=== PATIENT | female | born 1940 | race Caucasian/White ===

== ENCOUNTER → 2016-08-09 | Outpatient (REF) | payer MEDICARE ==
[~2016-08-09] MED LIST: /DULO30CA OR; ADVI200C5 PO; AMBI10TA OR; AMLO10TA2 PO; ASPI325T OR; ASPI81TA85 PO; BIOF4GEL2 TOP; BUME1TAB29 PO; BUSPIRONE OR; COUM2.5T11 PO; CYCL5TA PO; CYMB60CA3 PO; EQUATE OR; FLEXERIL OR; FLUR15CA2 OR; GABA300C3 PO; HYDR-3713 PO; HYDR50TA8 OR; HYDROCHLOROQUINE OR; JANU100T PO; LYRI100C10 PO; METAXALONE OR; METO50TA2 PO; OXYB5TAB5 OR; PANT40TA2 PO; PERC5TAB6 PO; TOLT1CAP4 PO; TRAD5TAB PO; TRAM50TA2 OR; TYLE325T5 PO
== END ==
LOC: M SFHCLERA 12:53
PROVIDERS: ATTEND Family Medicine
DX: E11.9 Type 2 diabetes mellitus without complications (principal)

== ENCOUNTER → 2016-08-11 | Outpatient (REF) | payer MEDICARE ==
[2016-08-11 20:06] LABS: FREE T4 1.15 NG/DL (0.76-1.46)
== END ==
LOC: M LAB REF 17:36
PROVIDERS: ATTEND Internal Medicine Nephrology
DX: R53.1 Weakness (principal)
CPT/HCPCS: 84425; 84439; 84443; G0463

== ENCOUNTER → 2016-09-02 | Outpatient (REF) | payer MEDICARE ==
[~2016-09-02] MED LIST changes: +GABA-282 PO; -GABA300C3 PO
[2016-09-02 22:17] LABS: BACTERIA, URINE NONE SEEN; HYALINE CAST, URINE NONE SEEN /lpf (0-1); MICROSCOPIC EXAM PERFORMED; RBC, URINE 0-1 /hpf (0-3); SQUAMOUS EPITHELIAL CELL URINE SMALL AMOUNT /hpf (SMALL AMT); WBC, URINE 0-1 /hpf (0-3)
== END ==
LOC: M SMT 16:59
PROVIDERS: ATTEND Specialist
DX: R35.0 Frequency of micturition (principal)
CPT/HCPCS: 51798; 81002; 87086; G0463

== ENCOUNTER → 2016-10-22 | Outpatient (REF) | payer MEDICARE | LOC: M SFHCLERA 11:16 | PROVIDERS: ATTEND Family Medicine | DX: E11.9 Type 2 diabetes mellitus without complications (principal); Z13.21 Encounter for screening for nutritional disorder ==

== ENCOUNTER → 2016-11-10 | Outpatient (REF) | payer MEDICARE | LOC: M LAB REF 17:00 | PROVIDERS: ATTEND Internal Medicine Nephrology | DX: D50.9 Iron deficiency anemia, unspecified (principal) ==

== ENCOUNTER 2016-11-17 08:40 | Outpatient (CLI) | payer MEDICARE ==
[2016-11-17] MEDS ORDERED: IRON SUCROSE 25 MG in NS 50 ML IV ONE (09:00)
[2016-11-17] MEDS ORDERED: IRON SUCROSE 475 MG in NS 250 ML IV ONE (09:00)
== END 2016-11-17 14:00 | disposition home or self-care (01) ==
LOC: M INFU 08:40
PROVIDERS: ATTEND Internal Medicine Nephrology
DX: D50.9 Iron deficiency anemia, unspecified (principal); Z88.2 Allergy status to sulfonamides; Z91.013 Allergy to seafood; Z79.899 Other long term (current) drug therapy
CPT/HCPCS: 96365; 96366; J1756

== ENCOUNTER → 2016-11-22 | Outpatient (REF) | payer MEDICARE | LOC: M SFHCLERA 13:07 | PROVIDERS: ATTEND Family Medicine | DX: E11.9 Type 2 diabetes mellitus without complications (principal) ==

== ENCOUNTER → 2017-02-13 | Outpatient (REF) | payer MEDICARE ==
[~2017-02-13] MED LIST changes: +ASPI1TAB PO; +BUPR75TA5 PO; +BYST10TA2 PO; -COUM2.5T11 PO; +COUM2.5T17 PO; -CYCL5TA PO; +CYCL5TAB PO; +DARI15TA PO; +LOSA100T36 PO; -LYRI100C10 PO; -METO50TA2 PO; +METO50TA7 PO; +PERC5TAB12 PO; -PERC5TAB6 PO; +PREG100CA PO
[2017-02-13 18:34] LABS: BASO % 0.5 % (0.0-1.0); EOS # 0.2 K/mm3 (0.0-0.50); EOS % 3.3 % (0.0-3.0); LARGE UNSTAINED CELL # 0.2 K/mm3 (0.0-0.4); LARGE UNSTAINED CELL % 3.4 % (0.0-4.0); LYMPH % 16.6 % (24.0-44.0); MEAN CORPUSCULAR HEMOGLOBIN 27.1 pg (27.0-33.0); MEAN CORPUSCULAR VOLUME 87.4 fl (80.0-96.0); MONO # 0.4 K/mm3 (0.0-0.8); MONO % 6.5 % (0.0-5.0); NEUTROPHILS # 4.1 K/mm3 (1.8-7.7); NEUTROPHILS % 69.7 % (36.0-66.0); PLATELET COUNT, AUTOMATED 239 k/mm3 (150-450); WHITE BLOOD COUNT 5.9 K/mm3 (4.0-10.0)
[2017-02-13 18:38] LABS: INR 0.97
[2017-02-13 20:33] LABS: ALBUMIN 3.7 GM/DL (3.2-5.2); ALBUMIN/GLOBULIN RATIO 1.12 (1.00-1.93); ALKALINE PHOSPHATASE 133 U/L (45-117); ALT/SGPT 34 U/L (12-78); ANION GAP 7 MEQ/L (8-16); AST/SGOT 28 U/L (15-37); BILIRUBIN,TOTAL 0.2 MG/DL (0.2-1.0); BLOOD UREA NITROGEN 21 MG/DL (7-18); CALCIUM LEVEL 9.2 MG/DL (8.8-10.2); CARBON DIOXIDE LEVEL 27 MEQ/L (21-32); CHLORIDE LEVEL 106 MEQ/L (98-107); CREATININE FOR GFR 0.93 MG/DL (0.55-1.02); GLOMERULAR FILTRATION RATE > 60.0 (>39); GLUCOSE, FASTING 130 MG/DL (83-110); POTASSIUM SERUM 4.3 MEQ/L (3.5-5.1); SODIUM LEVEL 140 MEQ/L (136-145); TOTAL IRON BINDING CAPACITY 438 UG/DL (250-450)
== END ==
LOC: M LAB REF 12:39
PROVIDERS: ATTEND Internal Medicine Gastroenterology
DX: D50.9 Iron deficiency anemia, unspecified (principal); Z79.899 Other long term (current) drug therapy

== ENCOUNTER → 2017-02-13 | Outpatient (REF) | payer MEDICARE ==
[2017-02-13 20:34] LABS: FOLATE > 24.0 NG/ML; VITAMIN B12 LEVEL > 2000 PG/ML
[2017-02-13 20:35] LABS: FERRITIN 18 NG/ML (8-252); PERCENT SATURATION 4.9 % (13.2-45.0); TOTAL IRON BINDING CAPACITY 428 UG/DL (250-450)
== END ==
LOC: M LAB REF 12:39
PROVIDERS: ATTEND Internal Medicine Nephrology
DX: D50.9 Iron deficiency anemia, unspecified (principal); Z79.899 Other long term (current) drug therapy

== ENCOUNTER 2017-02-28 10:59 | Outpatient (CLI) | payer MEDICARE ==
[~2017-02-28] VITALS: Ht 157.5 cm; Wt 106.4 kg
[~2017-02-28 10:59] MED LIST changes: -ASPI1TAB PO; -BUPR75TA5 PO; -BYST10TA2 PO; -DARI15TA PO; -LOSA100T36 PO
[2017-02-28] MEDS ORDERED: IRON SUCROSE 25 MG in NS 50 ML IV ONE (11:45)
[2017-02-28] MEDS ORDERED: IRON SUCROSE 475 MG in NS 250 ML IV ONE (12:45)
[2017-03-15] MEDS ORDERED: PREG100CA PO (17:26)
[2017-03-15] MEDS ORDERED: LOSA100T36 PO (17:26)
[2017-03-15] MEDS ORDERED: BYST10TA2 PO (17:26)
[2017-03-15] MEDS ORDERED: DARI15TA PO (17:26)
[2017-03-15] MEDS ORDERED: BUPR75TA5 PO (17:26)
[2017-03-15] MEDS ORDERED: TRAD5TAB PO (17:26)
[2017-03-15] MEDS ORDERED: ASPI1TAB PO (17:26)
== END 2017-02-28 16:25 | disposition home or self-care (01) ==
LOC: M INFU 10:59
PROVIDERS: ATTEND Internal Medicine Nephrology
DX: D50.9 Iron deficiency anemia, unspecified (principal); Z79.899 Other long term (current) drug therapy; Z91.013 Allergy to seafood; Z88.2 Allergy status to sulfonamides
CPT/HCPCS: 96365; 96366; J1756

== ENCOUNTER → 2017-03-13 | Outpatient (CLI) | payer MEDICARE ==
[~2017-03-13] MED LIST changes: +ASPI1TAB PO; +BUPR75TA5 PO; +BYST10TA2 PO; +DARI15TA PO; +LOSA100T36 PO
--- NOTE | 2017-03-13 11:08 | REP ---
Lumbar spine six views: Comparisons are 08/29/2068 03/11/2010. Surgical fusion of L4-5 is again identified. There is intervertebral disc space at L4-5. Para suspect there are bilateral L4-5 laminectomies. These findings are unchanged. There is advanced degenerative disc disease and L3-4 with this vacuum phenomenon, unchanged from 08/30/2015. There is mild grade 1 degenerative anterolisthesis of L3, also unchanged. There is progressive degenerative disc disease at L5 S1, unchanged. The remainder of the disc spaces are unchanged unremarkable. Vertebral body heights and alignment are otherwise normal. There is exaggerated lumbar lordosis. This is also unchanged. Mineralization is normal. The pedicles, facets and sacroiliac articulations are otherwise unchanged and unremarkable. Impression: L4-5 surgical fusion. Degenerative disc disease and degenerative spondylolisthesis as described. No significant interval changes. Signed by Tyron Hutton MD 03/13/2017 11:00 A
== END ==
LOC: M LRY 09:56
PROVIDERS: ATTEND Family Medicine
DX: M47.816 Spondylosis without myelopathy or radiculopathy, lumbar region (principal); M51.36 Other intervertebral disc degeneration, lumbar region

== ENCOUNTER 2017-03-28 07:04 | Outpatient (CLI) | payer MEDICARE ==
[~2017-03-28] VITALS: Ht 157.5 cm; Wt 103.4 kg
[2017-03-28] MEDS ORDERED: NS 1,000 ML IV ONE (07:15)
--- NOTE | 2017-03-28 08:21 | ROOR ---
Patient Name: Nikole Jose Procedure Date: 03/28/2017 8:03 AM Date of : 1940 Age: 76 Room: [facility] Gender: Female Note Status: Finalized Procedure: Upper GI endoscopy Indications: Iron deficiency anemia Providers: Kevin VALLE MD Referring MD: Jojo CARPENTER MD Requesting Provider: Medicines: Monitored Anesthesia Care Complications: No immediate complications. Procedure: Pre-Anesthesia Assessment: - The heart rate, respiratory rate, oxygen saturations, blood pressure, adequacy of pulmonary ventilation, and response to care were monitored throughout the procedure. The Endoscope was introduced through the mouth, and advanced to the second part of duodenum. The upper GI endoscopy was accomplished without difficulty. The patient tolerated the procedure well. Findings: The examined esophagus was normal. The Z-line was regular and was found 30 cm from the incisors. A large hiatal hernia with a few Fabrizio erosion was found. This was biopsied with a cold forceps for histology. The exam of the stomach was otherwise normal. The examined duodenum was normal. Impression: - Normal esophagus. - Z-line regular, 30 cm from the incisors. - Large hiatal hernia with a few Fabrizio erosions. Biopsied. - Normal examined duodenum. Recommendation: - No ibuprofen, naproxen, or other non-steroidal anti-inflammatory drugs. - Use Prilosec (omeprazole) 40 mg PO daily. - (the script was sent to your pharmacy on file) - Recommend an iron supplement. - Large Hiatal hernia may well be responsible for iron deficit. - If anemia persists with iron supplement, PPI therapy (omeprazole), and NSAID avoidance, then consideration should be given to surgical repair of hiatal hernia. Kevin Valle MD Kevin VALLE MD 03/28/2017 8:20:58 AM This report has been signed electronically. Number of Addenda: 0 Note Initiated On: 03/28/2017 8:03 AM Estimated Blood Loss: Estimated blood loss: none.
[2017-03-28] MEDS ORDERED: PROPOFOL 500 MG/50 ML VIAL As Ordered ONE ×2 (08:27→08:57)
[2017-03-28] MEDS ORDERED: LIDOCAINE 2% INJ 100 MG/5 ML SDV (FOR ANES.) As Ordered ONE (08:27)
--- NOTE | 2017-03-28 09:01 | ROOR ---
Patient Name: Nikole Jose Procedure Date: 03/28/2017 8:04 AM Date of : 1940 Age: 76 Room: [facility] Gender: Female Note Status: Finalized Procedure: Colonoscopy Indications: Iron deficiency anemia Providers: Kevin VALLE MD Referring MD: Jojo CARPENTER MD Requesting Provider: Medicines: Monitored Anesthesia Care Complications: No immediate complications. Procedure: Pre-Anesthesia Assessment: - The heart rate, respiratory rate, oxygen saturations, blood pressure, adequacy of pulmonary ventilation, and response to care were monitored throughout the procedure. The Colonoscope was introduced through the anus and advanced to the cecum, identified by appendiceal orifice and ileocecal valve. The colonoscopy was somewhat difficult due to dolichocolon and unsatisfactory bowel prep. Successful completion of the procedure was aided by applying abdominal pressure and lavage. The patient tolerated the procedure well. The quality of the bowel preparation was adequate to identify polyps 6 mm and larger in size and unsatisfactory. Findings: The perianal and digital rectal examinations were normal. (EXAM: Complete, PREP: Suboptimal) Multiple medium-mouthed diverticula were found in the sigmoid colon. Internal hemorrhoids were found during retroflexion. The hemorrhoids were medium-sized. The exam was otherwise without abnormality on direct and retroflexion views. Impression: - (EXAM: Complete, PREP: Suboptimal) - Moderate diverticulosis in the sigmoid colon. - Internal hemorrhoids. - The examination was otherwise normal on direct and retroflexion views. - No specimens collected. Recommendation: - Repeat colonoscopy in 1 year because the bowel preparation was suboptimal. - Perform a small bowel follow through at appointment to be scheduled. - Further rec--see EGD report - My office will call you to set up small bowel follow through exam. Kevin Valle MD Kevin VALLE MD 03/28/2017 9:01:02 AM This report has been signed electronically. Number of Addenda: 0 Note Initiated On: 03/28/2017 8:04 AM Estimated Blood Loss: Estimated blood loss: none.
[2017-03-28 13:21] VITALS: BP 104/60
== END 2017-03-28 09:35 | disposition home or self-care (01) ==
LOC: M OPP 07:04
PROVIDERS: ATTEND Internal Medicine Gastroenterology
DX: D50.9 Iron deficiency anemia, unspecified (principal); K57.30 Diverticulosis of large intestine without perforation or abscess without bleeding; K64.8 Other hemorrhoids; K44.9 Diaphragmatic hernia without obstruction or gangrene; K25.9 Gastric ulcer, unspecified as acute or chronic, without hemorrhage or perforation; I25.10 Atherosclerotic heart disease of native coronary artery without angina pectoris; I10 Essential (primary) hypertension; E11.9 Type 2 diabetes mellitus without complications; K59.00 Constipation, unspecified; R12 Heartburn; M19.90 Unspecified osteoarthritis, unspecified site; M81.0 Age-related osteoporosis without current pathological fracture; M54.9 Dorsalgia, unspecified; M79.7 Fibromyalgia; F32.9 Major depressive disorder, single episode, unspecified; R32 Unspecified urinary incontinence; Z96.653 Presence of artificial knee joint, bilateral; Z88.5 Allergy status to narcotic agent; Z88.2 Allergy status to sulfonamides; Z91.013 Allergy to seafood; Z79.82 Long term (current) use of aspirin; Z79.899 Other long term (current) drug therapy

== ENCOUNTER → 2017-04-10 | Outpatient (CLI) | payer MEDICARE ==
[~2017-04-10] MED LIST changes: +E-Z-GAS II EFFERVESCENT PACKET (SODIUM BICARB./CITRIC ACID/SIMETHICONE) As Ordered ONE; +E-Z-HD 98% w/w 340GM SUSP BTL As Ordered ONE; +E-Z-PAQUE 96% w/w SUSP 176GM BTL As Ordered ONE
--- NOTE | 2017-04-10 16:11 | REP ---
UPPER GI WITH SMALL BOWEL FOLLOW THROUGH: The procedure was performed by CASA Steen under the direct supervision of Dr. Blakely. All imaging was reviewed with Dr. Blakely prior to dictation. The patient was able to ingest liquid barium and air in a quantity sufficient to produce a double contrast examination. The oral and pharyngeal stages of deglutition appeared unremarkable. Esophageal transport was prompt and efficient. There was no evidence of esophagitis, stricture or mucosal ring. Tertiary contractions were noted on this examination. There is a moderate sized paraesophageal hernia. Gastroesophageal reflux was not observed. The stomach street are normally outlined. The rugal folds are smooth and regular. There was no evidence of gastritis, neoplasm or ulcerative disease. The duodenal street are normally outlined. There is no evidence of duodenitis, peptic ulcer disease or neoplasm. The visualized portion of the proximal small bowel was normal in course and caliber. Additional liquid barium was given at the end of the examination in order to perform a small bowel follow through. During fluoroscopy gentle palpation of the small bowel loops showed them to be freely movable and pliable without evidence of a fixed or angulated loop. The small bowel mucosal pattern was normal in course and caliber. There was no transition to suggest a partial small bowel obstruction. Spot filming of the terminal ileum was limited due to overlapping small bowel loops. IMPRESSION: Moderate size paraesophageal hernia. Tertiary contractions noted within the distal esophagus. Fluoroscopy time is 6 minutes and 19 seconds were utilized for this procedure. Reviewed by CASA Moore 04/10/2017 04:14 PEdited and Signed by Tyron Blakely MD 04/11/2017 07:29 P
== END ==
LOC: M RAD 08:45
PROVIDERS: ATTEND Internal Medicine Gastroenterology
DX: D50.9 Iron deficiency anemia, unspecified (principal); K44.9 Diaphragmatic hernia without obstruction or gangrene

== ENCOUNTER → 2017-05-08 | Outpatient (REF) | payer MEDICARE ==
[~2017-05-08] MED LIST changes: -E-Z-GAS II EFFERVESCENT PACKET (SODIUM BICARB./CITRIC ACID/SIMETHICONE) As Ordered ONE; -E-Z-HD 98% w/w 340GM SUSP BTL As Ordered ONE; -E-Z-PAQUE 96% w/w SUSP 176GM BTL As Ordered ONE
== END ==
LOC: M SFHCLERA 10:16
PROVIDERS: ATTEND Family Medicine
DX: E11.42 Type 2 diabetes mellitus with diabetic polyneuropathy (principal); L65.9 Nonscarring hair loss, unspecified; Z53.8 Procedure and treatment not carried out for other reasons

== ENCOUNTER → 2017-07-20 | Outpatient (REF) | payer MEDICARE ==
[2017-07-20 19:26] LABS: ESTIMATED AVERAGE GLUCOSE 143 MG/DL (60-110); HEMOGLOBIN A1c 6.6 %
[2017-07-20 19:28] LABS: FOLATE 13.9 NG/ML; FREE T4 1.17 NG/DL (0.76-1.46); TOTAL 25(OH) VITAMIN D 30.8 NG/ML (30.0-100.0); VITAMIN B12 LEVEL 1232 PG/ML
[2017-07-20 20:27] LABS: BASO # 0.1 10^3/uL (0.0-0.2); BASO % 1.1 % (0.0-1.0); EOS # 0.3 10^3/uL (0.0-0.50); EOS % 4.9 % (0.0-3.0); HEMATOCRIT 39.6 % (36.0-47.0); HEMOGLOBIN 12.3 g/dl (12.0-16.0); IMMATURE GRANULOCYTE % 0.4 % (0-0); LYMPH # 1.4 10^3/uL (1.5-4.5); LYMPH % 25.3 % (24.0-44.0); MEAN CORPUSCULAR HEMOGLOBIN 26.6 pg (27.0-33.0); MEAN CORPUSCULAR HGB CONC 31.1 g/dl (32.0-36.5); MEAN CORPUSCULAR VOLUME 85.7 fl (80.0-96.0); MONO # 0.5 10^3/uL (0.0-0.8); MONO % 9.1 % (0.0-5.0); NEUTROPHILS # 3.4 10^3/uL (1.8-7.7); NEUTROPHILS % 59.2 % (36.0-66.0); PLATELET COUNT, AUTOMATED 210 10^3/uL (150-450); RED BLOOD COUNT 4.62 10^6/uL (4.00-5.40); RED CELL DISTRIBUTION WIDTH 17.5 % (11.5-14.5); WHITE BLOOD COUNT 5.7 10^3/uL (4.0-10.0)
== END ==
LOC: M SFHCLERA 12:02
DX: E11.40 Type 2 diabetes mellitus with diabetic neuropathy, unspecified (principal); F33.1 Major depressive disorder, recurrent, moderate; Z79.899 Other long term (current) drug therapy
CPT/HCPCS: 82746

== ENCOUNTER → 2017-09-28 | Outpatient (CLI) | payer MEDICARE | LOC: M SLEEP 19:33 | DX: G47.30 Sleep apnea, unspecified (principal) | CPT/HCPCS: 95810 ==

== ENCOUNTER → 2017-11-01 | Outpatient (CLI) | payer MEDICARE | LOC: M SLEEP 20:02 | DX: G47.33 Obstructive sleep apnea (adult) (pediatric) (principal) | CPT/HCPCS: 95811 ==

== ENCOUNTER → 2018-01-04 | Outpatient (REF) | payer MEDICARE ==
[2018-01-04 12:28] LABS: ESTIMATED AVERAGE GLUCOSE 134 MG/DL (60-110); HEMOGLOBIN A1c 6.3 %
[2018-01-04 12:32] LABS: BASO # 0.1 10^3/uL (0.0-0.2); BASO % 1.1 % (0.0-1.0); EOS # 0.3 10^3/uL (0.0-0.50); EOS % 5.2 % (0.0-3.0); HEMATOCRIT 37.9 % (36.0-47.0); IMMATURE GRANULOCYTE % 0.2 % (0-3.0); LYMPH # 1.3 10^3/uL (1.5-4.5); LYMPH % 21.3 % (24.0-44.0); MEAN CORPUSCULAR HEMOGLOBIN 26.8 pg (27.0-33.0); MEAN CORPUSCULAR HGB CONC 31.7 g/dl (32.0-36.5); MEAN CORPUSCULAR VOLUME 84.6 fl (80.0-96.0); MONO # 0.7 10^3/uL (0.0-0.8); MONO % 11.8 % (0.0-5.0); NEUTROPHILS # 3.7 10^3/uL (1.8-7.7); NEUTROPHILS % 60.4 % (36.0-66.0); PLATELET COUNT, AUTOMATED 204 10^3/uL (150-450); RED BLOOD COUNT 4.48 10^6/uL (4.00-5.40); RED CELL DISTRIBUTION WIDTH 15.1 % (11.5-14.5); WHITE BLOOD COUNT 6.2 10^3/uL (4.0-10.0)
[2018-01-04 12:38] LABS: ALBUMIN 3.5 GM/DL (3.2-5.2); ALBUMIN/GLOBULIN RATIO 1.09 (1.00-1.93); ALKALINE PHOSPHATASE 142 U/L (45-117); ALT/SGPT 29 U/L (12-78); ANION GAP 8 MEQ/L (8-16); AST/SGOT 32 U/L (7-37); BILIRUBIN,TOTAL 0.3 MG/DL (0.2-1.0); BLOOD UREA NITROGEN 14 MG/DL (7-18); CALCIUM LEVEL 8.9 MG/DL (8.8-10.2); CARBON DIOXIDE LEVEL 28 MEQ/L (21-32); CHLORIDE LEVEL 107 MEQ/L (98-107); CREATININE FOR GFR 0.83 MG/DL (0.55-1.30); FREE T4 1.14 NG/DL (0.76-1.46); GLOMERULAR FILTRATION RATE > 60.0 (>39); GLUCOSE, FASTING 135 MG/DL (70-100); POTASSIUM SERUM 4.5 MEQ/L (3.5-5.1); SODIUM LEVEL 143 MEQ/L (136-145); TOTAL PROTEIN 6.7 GM/DL (6.4-8.2)
== END ==
LOC: M SFHCLERA 09:36
DX: R53.83 Other fatigue (principal); E11.40 Type 2 diabetes mellitus with diabetic neuropathy, unspecified
CPT/HCPCS: 84443

== ENCOUNTER → 2018-04-02 | Outpatient (CLI) | payer MEDICARE | LOC: M LRY 11:05 | DX: R06.02 Shortness of breath (principal); Z23 Encounter for immunization | CPT/HCPCS: 71046; 80053 ==

== ENCOUNTER → 2018-04-02 | Outpatient (REF) | payer MEDICARE ==
[2018-04-02 17:52] LABS: ALBUMIN/GLOBULIN RATIO 1.08 (1.00-1.93); ALKALINE PHOSPHATASE 147 U/L (45-117); ALT/SGPT 33 U/L (12-78); ANION GAP 6 MEQ/L (8-16); AST/SGOT 30 U/L (7-37); BILIRUBIN,TOTAL 0.4 MG/DL (0.2-1.0); BLOOD UREA NITROGEN 15 MG/DL (7-18); CALCIUM LEVEL 9.3 MG/DL (8.8-10.2); CARBON DIOXIDE LEVEL 31 MEQ/L (21-32); CHLORIDE LEVEL 104 MEQ/L (98-107); CREATININE FOR GFR 1.01 MG/DL (0.55-1.30); GLOMERULAR FILTRATION RATE 56.9 (>39); GLUCOSE, FASTING 145 MG/DL (70-100); POTASSIUM SERUM 4.5 MEQ/L (3.5-5.1); SODIUM LEVEL 141 MEQ/L (136-145); TOTAL PROTEIN 7.7 GM/DL (6.4-8.2)
[2018-04-02 18:07] LABS: BASO # 0.1 10^3/uL (0.0-0.2); EOS # 0.2 10^3/uL (0.0-0.50); EOS % 3.6 % (0.0-3.0); HEMATOCRIT 45.8 % (36.0-47.0); IMMATURE GRANULOCYTE % 0.1 % (0-3.0); LYMPH % 29.8 % (24.0-44.0); MEAN CORPUSCULAR HEMOGLOBIN 27.2 pg (27.0-33.0); MEAN CORPUSCULAR HGB CONC 30.6 g/dl (32.0-36.5); MEAN CORPUSCULAR VOLUME 88.9 fl (80.0-96.0); MONO # 0.8 10^3/uL (0.0-0.8); MONO % 12.3 % (0.0-5.0); NEUTROPHILS # 3.6 10^3/uL (1.8-7.7); NEUTROPHILS % 53.2 % (36.0-66.0); PLATELET COUNT, AUTOMATED 218 10^3/uL (150-450); RED BLOOD COUNT 5.15 10^6/uL (4.00-5.40); RED CELL DISTRIBUTION WIDTH 16.9 % (11.5-14.5); WHITE BLOOD COUNT 6.8 10^3/uL (4.0-10.0)
== END ==
LOC: M SFHCLERA 10:14
DX: R32 Unspecified urinary incontinence (principal)
CPT/HCPCS: 80053

== ENCOUNTER 2018-04-05 21:11 | Emergency (ER) | payer MEDICARE ==
[2018-04-05] MEDS: diphenhydrAMINE INJ 50MG/ML VIAL (J1200) IV (22:12)
[2018-04-05] MEDS: methylPREDNISolone INJ 125 MG/2 ML VIAL (J2930) IV (22:12)
[2018-04-05 22:21] LABS: BASO % 0.6 % (0.0-1.0); EOS # 0.2 10^3/uL (0.0-0.50); EOS % 3.1 % (0.0-3.0); IMMATURE GRANULOCYTE % 0.3 % (0-3.0); LYMPH # 1.7 10^3/uL (1.5-4.5); LYMPH % 26.2 % (24.0-44.0); MEAN CORPUSCULAR HEMOGLOBIN 27.7 pg (27.0-33.0); MEAN CORPUSCULAR HGB CONC 31.7 g/dl (32.0-36.5); MEAN CORPUSCULAR VOLUME 87.2 fl (80.0-96.0); MONO # 0.7 10^3/uL (0.0-0.8); MONO % 11.4 % (0.0-5.0); NEUTROPHILS # 3.8 10^3/uL (1.8-7.7); NEUTROPHILS % 58.4 % (36.0-66.0); PLATELET COUNT, AUTOMATED 191 10^3/uL (150-450); RED CELL DISTRIBUTION WIDTH 16.4 % (11.5-14.5); WHITE BLOOD COUNT 6.5 10^3/uL (4.0-10.0)
[2018-04-05] MEDS ORDERED: ISOVUE-370 76% 100ML VIAL (Q9967) As Ordered (22:31)
[2018-04-05 22:45] LABS: ANION GAP 7 MEQ/L (8-16); BLOOD UREA NITROGEN 21 MG/DL (7-18); CALCIUM LEVEL 9.6 MG/DL (8.8-10.2); CARBON DIOXIDE LEVEL 30 MEQ/L (21-32); CHLORIDE LEVEL 104 MEQ/L (98-107); CPK CREATINE PHOSPHOKINASE 93 U/L (26-192); CREATININE FOR GFR 0.84 MG/DL (0.55-1.30); GLOMERULAR FILTRATION RATE > 60.0 (>39); GLUCOSE, FASTING 90 MG/DL (70-100); MB/CK RELATIVE INDEX 3.23 (< OR =4); POTASSIUM SERUM 4.1 MEQ/L (3.5-5.1); SODIUM LEVEL 141 MEQ/L (136-145); TROPONIN I < 0.02 NG/ML (< 0.10)
[2018-04-05 22:47] LABS: LACTIC ACID SEPSIS PROTOCOL 0.8 MMOL/L (0.4-2.0)
== END 2018-04-06 01:16 | disposition home or self-care (01) ==
LOC: M ED 04-06 01:16
DX: R06.00 Dyspnea, unspecified (principal); I50.9 Heart failure, unspecified; I25.10 Atherosclerotic heart disease of native coronary artery without angina pectoris; Z88.5 Allergy status to narcotic agent; Z91.013 Allergy to seafood; Z88.2 Allergy status to sulfonamides
CPT/HCPCS: J1200

== ENCOUNTER → 2018-04-30 | Outpatient (CLI) | payer MEDICARE ==
[2018-04-30 13:59] LABS: HEMATOCRIT 39.3 % (36.0-47.0); HEMOGLOBIN 12.6 g/dl (12.0-15.5); MEAN CORPUSCULAR HEMOGLOBIN 28.6 pg (27.0-33.0); MEAN CORPUSCULAR HGB CONC 32.1 g/dl (32.0-36.5); MEAN CORPUSCULAR VOLUME 89.1 fl (80.0-96.0); PLATELET COUNT, AUTOMATED 201 10^3/uL (150-450); RED BLOOD COUNT 4.41 10^6/uL (4.00-5.40); WHITE BLOOD COUNT 4.4 10^3/uL (4.0-10.0)
[2018-04-30 14:05] LABS: ANION GAP 8 MEQ/L (8-16); BLOOD UREA NITROGEN 11 MG/DL (7-18); CALCIUM LEVEL 9.5 MG/DL (8.8-10.2); CARBON DIOXIDE LEVEL 26 MEQ/L (21-32); CHLORIDE LEVEL 108 MEQ/L (98-107); CREATININE FOR GFR 0.78 MG/DL (0.55-1.30); GLOMERULAR FILTRATION RATE > 60.0 (>39); GLUCOSE, FASTING 126 MG/DL (70-100); POTASSIUM SERUM 4.2 MEQ/L (3.5-5.1); SODIUM LEVEL 142 MEQ/L (136-145)
== END ==
LOC: M SMT 10:31
DX: Z01.818 Encounter for other preprocedural examination (principal); R32 Unspecified urinary incontinence
CPT/HCPCS: 80048

== ENCOUNTER → 2018-05-02 | Outpatient (REF) | payer MEDICARE ==
[2018-05-02 18:06] LABS: BACTERIA, URINE AUTO 1+ (NEGATIVE); MUCUS, URINE SMALL (NEGATIVE); RBC, URINE AUTO 1 /HPF (0-3); SQUAMOUS EPITHELIAL CELL UR AU 2 /HPF (0-6); WBC, URINE AUTO 2 /HPF (0-3)
== END ==
LOC: M SMT 17:06
DX: R39.9 Unspecified symptoms and signs involving the genitourinary system (principal)
CPT/HCPCS: 81015

== ENCOUNTER 2018-05-08 10:28 | Day surgery (SDC) | payer MEDICARE ==
[2018-05-08] MEDS: BOTULINUM INJ 100 UNITS (J0585) XX (06:00)
[~2018-05-08 10:28] MED LIST changes: -/DULO30CA OR; -ADVI200C5 PO; -AMBI10TA OR; -AMLO10TA2 PO; -ASPI1TAB PO; -ASPI325T OR; -ASPI81TA85 PO; -BIOF4GEL2 TOP; -BUME1TAB29 PO; -BUPR75TA5 PO; -BUSPIRONE OR; -BYST10TA2 PO; -COUM2.5T17 PO; -CYCL5TAB PO; -CYMB60CA3 PO; -DARI15TA PO; -EQUATE OR; -FLEXERIL OR; -FLUR15CA2 OR; -GABA-282 PO; -HYDR-3713 PO; -HYDR50TA8 OR; -HYDROCHLOROQUINE OR; -JANU100T PO; +LIDOCAINE 2% INJ 100 MG/5 ML SDV (FOR ANES.) As Ordered; -LOSA100T36 PO; -METAXALONE OR; -METO50TA7 PO; +MIDAZOLAM INJ 2 MG/2 ML VIAL (J2250) As Ordered; -OXYB5TAB5 OR; -PANT40TA2 PO; -PERC5TAB12 PO; -PREG100CA PO; +PROPOFOL 200 MG/20 ML VIAL As Ordered; -TOLT1CAP4 PO; -TRAD5TAB PO; -TRAM50TA2 OR; -TYLE325T5 PO; +fentaNYL 100 MCG/2 ML INJECTION (J3010) As Ordered
[2018-05-08 11:29] LABS: BEDSIDE GLUCOSE 127 MG/DL (83-110)
[2018-05-08] MEDS: LR 1,000 ML IV (11:31)
[2018-05-08] MEDS: LIDOCAINE 2% 5ML JELLY UROJET As Ordered (12:58)
[2018-05-08] MEDS: LIDOCAINE 1% MDV INJ 50 ML VIAL As Ordered (12:58)
[2018-05-08] MEDS: BOTULINUM INJ 100 UNITS (J0585) As Ordered (13:00)
[2018-05-08] MEDS ORDERED: PROPOFOL 200 MG/20 ML VIAL As Ordered ×2 (13:02)
[2018-05-08] MEDS ORDERED: ONDANSETRON 4MG/2ML VIAL (J2405) As Ordered (13:08)
[2018-05-08] MEDS ORDERED: KETOROLAC 60 MG/2 ML VIAL (J1885) As Ordered (13:08)
== END 2018-05-08 15:45 | disposition home or self-care (01) ==
LOC: M SDC 10:28
DX: N30.11 Interstitial cystitis (chronic) with hematuria (principal); R35.0 Frequency of micturition; R39.15 Urgency of urination; I10 Essential (primary) hypertension; E11.9 Type 2 diabetes mellitus without complications; K21.9 Gastro-esophageal reflux disease without esophagitis; D64.9 Anemia, unspecified; F32.9 Major depressive disorder, single episode, unspecified; F41.9 Anxiety disorder, unspecified; Z88.2 Allergy status to sulfonamides; Z91.013 Allergy to seafood; Z79.899 Other long term (current) drug therapy
CPT/HCPCS: 52260

== ENCOUNTER → 2018-05-10 | Outpatient (REF) | payer MEDICARE ==
[2018-05-10 21:36] LABS: ESTIMATED AVERAGE GLUCOSE 148 MG/DL (60-110); HEMOGLOBIN A1c 6.8 %
== END ==
LOC: M SFHCLERA 16:00
DX: E11.40 Type 2 diabetes mellitus with diabetic neuropathy, unspecified (principal)
CPT/HCPCS: 83036

== ENCOUNTER → 2018-05-22 | Outpatient (CLI) | payer MEDICARE | LOC: M SLEEP 19:15 | DX: G47.33 Obstructive sleep apnea (adult) (pediatric) (principal) | CPT/HCPCS: 95811 ==

== ENCOUNTER 2018-08-01 06:08 | Day surgery (SDC) | payer MEDICARE ==
[~2018-08-01] VITALS: Ht 157.5 cm; Wt 100.2 kg
[~2018-08-01 06:08] MED LIST changes: +/DULO30CA OR; +ADVI200C5 PO; +AMBI10TA OR; +AMLO10TA5 PO; +ASPI1TAB PO; +ASPI325T OR; +ASPI81TA85 PO; +BIOF4GEL2 TOP; +BUME1TAB29 PO; +BUPR75TA5 PO; +BUSPIRONE OR; +BYST10TA2 PO; +COUM2.5T17 PO; +CYCL5TAB PO; +CYMB60CA3 PO; +DARI15TA2 PO; +EQUATE OR; +FLEXERIL OR; +FLUR15CA2 OR; +GABA-843 PO; +HYDR-3713 PO; +HYDR50TA8 OR; +HYDROCHLOROQUINE OR; +JANU100T PO; -LIDOCAINE 2% INJ 100 MG/5 ML SDV (FOR ANES.) As Ordered; +LOSA100T50 PO; +METAXALONE OR; +METO50TA7 PO; -MIDAZOLAM INJ 2 MG/2 ML VIAL (J2250) As Ordered; +MYRB50TA; +OXYB5TAB5 OR; +PANT40TA3 PO; +PERC5TAB12 PO; +PREG100CA PO; -PROPOFOL 200 MG/20 ML VIAL As Ordered; +TOLT2CAP4 PO; +TRAD5TAB PO; +TRAM50TA2 OR; +TYLE325T5 PO; +TYLE650T35 PO; +VITA100067 PO; -fentaNYL 100 MCG/2 ML INJECTION (J3010) As Ordered
[2018-08-01] MEDS ORDERED: SODIUM BICARBONATE 8.4% INJ 50MEQ 50 ML VIAL As Ordered ONE (06:31)
[2018-08-01] MEDS ORDERED: LIDOCAINE 2% W/EPIN INJ 20ML **PRES FREE As Ordered ONE (06:31)
[2018-08-01] MEDS ORDERED: POVIDONE-IODINE 5% OPHTH PREP SOL 30ML As Ordered ONE (06:32)
[2018-08-01] MEDS ORDERED: TOBRADEX OPHTH OINT 3.5 GM As Ordered ONE (06:32)
[2018-08-01] MEDS ORDERED: LIDOCAINE 3.5 % 1ML OPHTH TOPICAL GEL OU ONE (07:00)
[2018-08-01] MEDS ORDERED: fentaNYL 100 MCG/2 ML INJECTION (J3010) As Ordered ONE (07:34)
[2018-08-01] MEDS ORDERED: PROPOFOL 200 MG/20 ML VIAL As Ordered ONE (07:34)
[2018-08-01] MEDS ORDERED: LIDOCAINE 2% INJ 100 MG/5 ML SDV (FOR ANES.) As Ordered ONE (07:34)
[2018-08-01] MEDS ORDERED: MIDAZOLAM INJ 2 MG/2 ML VIAL (J2250) As Ordered ONE (07:34)
[2018-08-01] MEDS ORDERED: LABETALOL HCL 100 MG/20 ML VIAL As Ordered ONE (08:34)
[2018-08-01 09:10] VITALS: BP 141/76
--- NOTE | 2018-08-02 13:47 | RO ---
DATE OF PROCEDURE: 08/01/2018 PREOPERATIVE DIAGNOSIS: Ptosis and dermatochalasis both upper lids. POSTOPERATIVE DIAGNOSIS: Ptosis and dermatochalasis both upper lids. PROCEDURE: Bilateral blepharoplasty and ptosis repair. SURGEON: Abran Bradshaw MD ROVING TECHNICIAN: None. ANESTHESIA: COMPLICATIONS: None. PROCEDURE IN DETAIL: Patient was brought to the operating room, laid in supine position. The upper face was prepped and draped in a sterile fashion for eyelid surgery, following which both upper lids were marked with a sterile markers along the lines of intended skin excision. Both upper lids were then infiltrated using 2% lidocaine with 1:100,000 epinephrine. Attention was first diverted to the right eye where with the help of the electrocautery the premarked skin was excised. Deeper dissection was carried out to isolate any remaining nasal and lateral fat pads, which were excised and hemostasis obtained with electrocautery. The levator aponeurosis was then identified and was detached. It was reattached using #6-0 nylon sutures. After adequate lid position was noted, the wound was closed using #6-0 nylon sutures. Exactly the same procedure was then done for the left upper lid. At the end of the case, TobraDex ointment was applied, ice packs were applied and the patient was returned to the recovery room in stable condition.
== END 2018-08-01 09:35 | disposition home or self-care (01) ==
LOC: M SDC 06:08
PROVIDERS: ATTEND Ophthalmology
DX: H02.834 Dermatochalasis of left upper eyelid (principal); H02.831 Dermatochalasis of right upper eyelid; H02.403 Unspecified ptosis of bilateral eyelids; I11.0 Hypertensive heart disease with heart failure; M12.9 Arthropathy, unspecified; M79.7 Fibromyalgia; I50.9 Heart failure, unspecified; K59.00 Constipation, unspecified; K21.9 Gastro-esophageal reflux disease without esophagitis; D64.9 Anemia, unspecified; R06.02 Shortness of breath; M54.9 Dorsalgia, unspecified; M81.0 Age-related osteoporosis without current pathological fracture; F41.9 Anxiety disorder, unspecified; F32.9 Major depressive disorder, single episode, unspecified; R06.83 Snoring; G47.33 Obstructive sleep apnea (adult) (pediatric); N18.9 Chronic kidney disease, unspecified; R32 Unspecified urinary incontinence; E66.9 Obesity, unspecified; Z68.39 Body mass index [BMI] 39.0-39.9, adult; Z88.2 Allergy status to sulfonamides; Z88.5 Allergy status to narcotic agent; Z91.013 Allergy to seafood; Z79.899 Other long term (current) drug therapy; Z90.710 Acquired absence of both cervix and uterus; Z78.0 Asymptomatic menopausal state; Z96.653 Presence of artificial knee joint, bilateral; Z98.41 Cataract extraction status, right eye; Z98.42 Cataract extraction status, left eye; Z96.1 Presence of intraocular lens
CPT/HCPCS: 67904; 88302; J2250; J3010

== ENCOUNTER → 2018-09-28 | Outpatient (REF) | payer MEDICARE ==
[~2018-09-28] MED LIST changes: -/DULO30CA OR; -ASPI1TAB PO; +ASPI81TA26 PO; +CYMB1CAP5 OR
[2018-09-28 18:08] LABS: BASO # 0.1 10^3/uL (0.0-0.2); BASO % 0.9 % (0.0-1.0); EOS # 0.3 10^3/uL (0.0-0.50); EOS % 3.5 % (0.0-3.0); HEMATOCRIT 41.6 % (36.0-47.0); HEMOGLOBIN 12.9 g/dl (12.0-15.5); LYMPH # 2.2 10^3/uL (1.5-4.5); LYMPH % 24.9 % (24.0-44.0); MEAN CORPUSCULAR HEMOGLOBIN 28.5 pg (27.0-33.0); MEAN CORPUSCULAR VOLUME 91.8 fl (80.0-96.0); MONO % 11.3 % (0.0-5.0); NEUTROPHILS # 5.3 10^3/uL (1.8-7.7); NEUTROPHILS % 59.2 % (36.0-66.0); PLATELET COUNT, AUTOMATED 216 10^3/uL (150-450); RED BLOOD COUNT 4.53 10^6/uL (4.00-5.40); WHITE BLOOD COUNT 8.9 10^3/uL (4.0-10.0)
== END ==
LOC: M SFHCLERA 11:04
PROVIDERS: ATTEND Nurse Practitioner Family
DX: M54.9 Dorsalgia, unspecified (principal)
CPT/HCPCS: 85025; G0463

== ENCOUNTER → 2018-10-25 | Outpatient (CLI) | payer MEDICARE ==
--- NOTE | 2018-10-25 12:12 | REP ---
AP AND LATERAL LEFT HIP, TWO VIEWS: HISTORY: Iliotibial band syndrome. There is no acute fracture or dislocation. There is minimal narrowing of the hip joint space. IMPRESSION: Degenerative change as described above. Electronically Signed by Saw Starr MD 10/25/2018 12:23 P
== END ==
LOC: M LRY 11:23
PROVIDERS: ATTEND Family Medicine
DX: M16.12 Unilateral primary osteoarthritis, left hip (principal); M76.32 Iliotibial band syndrome, left leg
CPT/HCPCS: 73502; G0463

== ENCOUNTER → 2018-10-27 | Outpatient (REF) | payer MEDICARE ==
[2018-10-27 19:44] LABS: BLOOD UREA NITROGEN 15 MG/DL (7-18); CALCIUM LEVEL 9.5 MG/DL (8.8-10.2); CARBON DIOXIDE LEVEL 29 MEQ/L (21-32); CHLORIDE LEVEL 108 MEQ/L (98-107); CHOLESTEROL LEVEL 202 MG/DL (<200); CHOLESTEROL RISK RATIO 3.156 (<5); CREATININE FOR GFR 0.96 MG/DL (0.55-1.30); GLOMERULAR FILTRATION RATE > 60.0 (>39); GLUCOSE, FASTING 136 MG/DL (70-100); HDL CHOLESTEROL 64 MG/DL (>40); LDL CHOLESTEROL 101 MG/DL (<100); NON-HDL-C 138 MG/DL; SODIUM LEVEL 142 MEQ/L (136-145); TRIGLYCERIDES LEVEL 185 MG/DL (<150)
[2018-10-27 19:54] LABS: HEMOGLOBIN A1c 6.9 %
[2018-10-27 20:07] LABS: MAU/CREAT RATIO 42.5 MCG/MG (0.0-30.0)
== END ==
LOC: M SFHCLERA 13:51
PROVIDERS: ATTEND Family Medicine
DX: E11.40 Type 2 diabetes mellitus with diabetic neuropathy, unspecified (principal)

== ENCOUNTER → 2018-12-18 | Outpatient (CLI) | payer MEDICARE ==
--- NOTE | 2018-12-18 09:35 | REP ---
Clinical: Lumbar spondylosis. Technique: AP, lateral, bilateral oblique and coned-down views of the lumbosacral spine. Comparison: 03/13/2017. Findings: The patient is again noted to be status post posterior fusion and laminectomy at the L4-5. Alignment/lordosis is maintained and remains stable as compared to prior examination. Advanced multilevel degenerative spondylosis involving L3-4 through L5-S1 is unchanged. Visualized lower thoracic and upper to mid lumbar spine demonstrates stable moderate multilevel degenerative changes. No acute fracture / compression injury or subluxation. Impression: Moderate to advanced multilevel degenerative spondylosis involving the visualized lower thoracic through lumbosacral spine. Findings appear stable compared to 03/13/2017 by radiographic evaluation. Electronically Signed by Alon Estrada MD 12/18/2018 09:26 A
== END ==
LOC: M LRY 09:03
PROVIDERS: ATTEND Family Medicine
DX: M47.894 Other spondylosis, thoracic region (principal); M47.897 Other spondylosis, lumbosacral region; M47.816 Spondylosis without myelopathy or radiculopathy, lumbar region
CPT/HCPCS: 72110; G0463

== ENCOUNTER 2019-01-31 12:04 | Emergency (ER) | payer MEDICARE ==
[~2019-01-31] VITALS: Ht 157.5 cm; Wt 95.5 kg
[2019-01-31] MEDS ORDERED: DULO1CAP6 (12:26)
[2019-01-31] MEDS ORDERED: HYDR-3363 PO (12:26)
[2019-01-31] MEDS ORDERED: BUME1TAB3 (12:26)
[2019-01-31 13:47] LABS: BASO % 0.6 % (0.0-1.0); EOS # 0.1 10^3/uL (0.0-0.50); EOS % 1.1 % (0.0-3.0); HEMATOCRIT 36.2 % (36.0-47.0); HEMOGLOBIN 11.3 g/dl (12.0-15.5); LYMPH % 13.3 % (24.0-44.0); MEAN CORPUSCULAR HEMOGLOBIN 26.8 pg (27.0-33.0); MEAN CORPUSCULAR HGB CONC 31.2 g/dl (32.0-36.5); MEAN CORPUSCULAR VOLUME 85.8 fl (80.0-96.0); MONO # 0.4 10^3/uL (0.0-0.8); MONO % 5.8 % (0.0-5.0); NEUTROPHILS # 5.7 10^3/uL (1.8-7.7); NEUTROPHILS % 78.9 % (36.0-66.0); PLATELET COUNT, AUTOMATED 230 10^3/uL (150-450); RED BLOOD COUNT 4.22 10^6/uL (4.00-5.40); WHITE BLOOD COUNT 7.2 10^3/uL (4.0-10.0)
[2019-01-31 14:07] LABS: CREATININE FOR GFR 1.05 MG/DL (0.55-1.30); GLOMERULAR FILTRATION RATE 54.2 (>39); POTASSIUM SERUM 3.8 MEQ/L (3.5-5.1)
[2019-01-31 14:08] LABS: CALCIUM LEVEL 9.6 MG/DL (8.8-10.2)
--- NOTE | 2019-01-31 16:19 | REP ---
CHEST, TWO VIEWS: Two views of the chest are performed and compared to prior study of 04/02/2018. There is no acute infiltrate. The heart is not enlarged. There is calcification and tortuosity of the thoracic aorta. The mediastinal silhouette is unchanged. There is a large hiatal hernia. IMPRESSION: No acute pulmonary disease. Electronically Signed by Tyron Blakely MD 02/01/2019 09:28 A
[2019-01-31] MEDS ORDERED: IPRATROPIUM 0.5MG/ALBUTEROL 2.5MG INH SOL UD 3ML (DUONEB)(J7620) NEB ONE (16:45)
[2019-01-31] MEDS ORDERED: KETOROLAC 30 MG/ML VIAL (J1885) IM ONE (19:30)
[2019-01-31 19:54] VITALS: BP 136/81
== END 2019-01-31 20:15 | disposition home or self-care (01) ==
LOC: M ED 12:04
DX: J68.0 Bronchitis and pneumonitis due to chemicals, gases, fumes and vapors (principal); R06.00 Dyspnea, unspecified; R50.9 Fever, unspecified; I11.0 Hypertensive heart disease with heart failure; I50.9 Heart failure, unspecified; E11.9 Type 2 diabetes mellitus without complications; G47.30 Sleep apnea, unspecified; K21.9 Gastro-esophageal reflux disease without esophagitis; Z86.73 Personal history of transient ischemic attack (TIA), and cerebral infarction without residual deficits; Z96.652 Presence of left artificial knee joint; Z88.2 Allergy status to sulfonamides; Z88.5 Allergy status to narcotic agent; Z91.013 Allergy to seafood; Z79.899 Other long term (current) drug therapy; Z79.84 Long term (current) use of oral hypoglycemic drugs
CPT/HCPCS: 71046; 80048; 85025; 94640; 96372; 99284; J1885

== ENCOUNTER → 2019-07-09 | Outpatient (REF) | payer MEDICARE ==
[~2019-07-09] MED LIST changes: +BUME1TAB3; +DULO1CAP6; +HYDR-3363 PO
[2019-07-09 16:32] LABS: BASO # 0.1 10^3/uL (0.0-0.2); BASO % 0.9 % (0.0-1.0); EOS # 0.3 10^3/uL (0.0-0.5); HEMATOCRIT 45.1 % (36.0-47.0); LYMPH # 2.3 10^3/uL (1.5-5.0); LYMPH % 29.8 % (24.0-44.0); MEAN CORPUSCULAR VOLUME 93.6 fl (80.0-96.0); MONO % 12.3 % (0.0-5.0); NEUTROPHILS # 4.1 10^3/uL (1.5-8.5); NEUTROPHILS % 52.9 % (36.0-66.0); PLATELET COUNT, AUTOMATED 201 10^3/uL (150-450); RED BLOOD COUNT 4.82 10^6/uL (4.00-5.40); WHITE BLOOD COUNT 7.8 10^3/uL (4.0-10.0)
[2019-07-09 16:48] LABS: ALBUMIN 4.3 GM/DL (3.2-5.2); BILIRUBIN,TOTAL 0.5 MG/DL (0.2-1.0); CREATININE FOR GFR 1.05 MG/DL (0.55-1.30); GLOMERULAR FILTRATION RATE 54.2 (>39); PERCENT SATURATION 28.6 % (13.2-45.0); POTASSIUM SERUM 4.3 MEQ/L (3.5-5.1); TOTAL PROTEIN 7.4 GM/DL (6.4-8.2)
[2019-07-09 16:57] LABS: HEMOGLOBIN A1c 6.6 %
== END ==
LOC: M SFHCLERA 11:43
PROVIDERS: ATTEND Family Medicine
DX: D50.9 Iron deficiency anemia, unspecified (principal); E11.40 Type 2 diabetes mellitus with diabetic neuropathy, unspecified; I10 Essential (primary) hypertension
CPT/HCPCS: 80053; 80061; 82728; 83036; 83550; 85025; G0463

== ENCOUNTER → 2019-08-07 | Outpatient (REF) | payer MEDICARE ==
[~2019-08-07] MED LIST changes: -BUME1TAB3; +BUME1TAB3 PO; -DULO1CAP6; +DULO1CAP6 PO; +FERR325T3 PO; +VITA200010 PO
== END ==
LOC: M LAB REF 17:03 → M LABDRAW1 17:03
PROVIDERS: ATTEND Specialist
DX: Z53.9 Procedure and treatment not carried out, unspecified reason (principal)

== ENCOUNTER → 2019-08-07 | Outpatient (REF) | payer MEDICARE ==
[~2019-08-07] MED LIST changes: -FERR325T3 PO
[2019-08-07 19:00] LABS: AMORPHOUS SEDIMENT SMALL (NEGATIVE); BACTERIA, URINE AUTO NEGATIVE (NEGATIVE); MUCUS, URINE SMALL (NEGATIVE); RBC, URINE AUTO 1 /HPF (0-3); SQUAMOUS EPITHELIAL CELL UR AU 4 /HPF (0-6); WBC, URINE AUTO 6 /HPF (0-3)
[2019-08-07 19:01] LABS: HEMATOCRIT 44.6 % (36.0-47.0); HEMOGLOBIN 13.6 g/dl (12.0-15.5); MEAN CORPUSCULAR HGB CONC 30.5 g/dl (32.0-36.5); MEAN CORPUSCULAR VOLUME 95.1 fl (80.0-96.0); PLATELET COUNT, AUTOMATED 226 10^3/uL (150-450); RED BLOOD COUNT 4.69 10^6/uL (4.00-5.40); WHITE BLOOD COUNT 7.9 10^3/uL (4.0-10.0)
[2019-08-07 19:06] LABS: CALCIUM LEVEL 9.3 MG/DL (8.8-10.2); CREATININE FOR GFR 1.21 MG/DL (0.55-1.30); GLOMERULAR FILTRATION RATE 46.1 (>39); POTASSIUM SERUM 3.9 MEQ/L (3.5-5.1)
== END ==
LOC: M LABSMT 13:02
PROVIDERS: ATTEND Specialist
DX: Z01.818 Encounter for other preprocedural examination (principal); Z79.899 Other long term (current) drug therapy

== ENCOUNTER → 2019-08-21 | Outpatient (REF) | payer MEDICARE ==
[2019-08-21 13:40] LABS: APPEARANCE, URINE CLOUDY (CLEAR); BACTERIA, URINE AUTO NEGATIVE (NEGATIVE); BILIRUBIN, URINE AUTO NEGATIVE (NEGATIVE); BLOOD, URINE BLOOD NEGATIVE (NEGATIVE); COLOR, URINE YELLOW (YELLOW); GLUCOSE, URINE (UA) AUTO NEGATIVE (NEGATIVE); KETONE, URINE AUTO TRACE mg/dL (NEGATIVE); LEUKOCYTE ESTERASE, URINE AUTO NEGATIVE (NEGATIVE); MUCUS, URINE SMALL (NEGATIVE); NITRITE, URINE AUTO NEGATIVE (NEGATIVE); PROTEIN, URINE AUTO NEGATIVE (NEGATIVE); RBC, URINE AUTO 0 /HPF (0-3); SPECIFIC GRAVITY URINE AUTO 1.036 (1.002-1.035); SQUAMOUS EPITHELIAL CELL UR AU 6 /HPF (0-6); UROBILINOGEN, URINE AUTO 0.2 mg/dL (0.0-2.0); WBC, URINE AUTO 1 /HPF (0-3)
== END ==
LOC: M SMT 12:56
PROVIDERS: ATTEND Specialist
DX: N39.0 Urinary tract infection, site not specified (principal)

== ENCOUNTER → 2019-09-03 | Outpatient (REF) | payer MEDICARE ==
[~2019-09-03] MED LIST changes: +FERR325T3 PO
[2019-09-03 16:23] LABS: BACTERIA, URINE AUTO NEGATIVE (NEGATIVE); RBC, URINE AUTO 1 /HPF (0-3); SQUAMOUS EPITHELIAL CELL UR AU 0 /HPF (0-6); WBC, URINE AUTO 0 /HPF (0-3)
== END ==
LOC: M LABSMT 14:13
PROVIDERS: ATTEND Specialist
DX: N30.00 Acute cystitis without hematuria (principal)

== ENCOUNTER → 2019-10-16 | Outpatient (REF) | payer MEDICARE ==
[2019-10-16 17:03] LABS: HEMOGLOBIN A1c 6.9 %
== END ==
LOC: M SFHCPLAZ 11:25
PROVIDERS: ATTEND Family Medicine
DX: E11.40 Type 2 diabetes mellitus with diabetic neuropathy, unspecified (principal)

== ENCOUNTER → 2019-10-17 | Outpatient (CLI) | payer MEDICARE ==
--- NOTE | 2019-10-17 14:10 | REPPI ---
CHEST TWO VIEWS: Two views of the chest are performed and compared to prior studies most recently 01/31/2019. There is mild bibasilar interstitial prominence which is chronic in nature. There is no acute infiltrate or pulmonary edema. The heart is upper limits of normal in size. The mediastinal silhouette is unchanged. There is curvature of the thoracic spine towards the right with degenerative changes of the spine. There is a moderate to large hiatal hernia present. IMPRESSION: No acute infiltrate or pulmonary edema. Moderate to large hiatal hernia. Electronically Signed by Tyron Blakely MD 10/17/2019 02:45 P
== END ==
LOC: M PLAIMG 11:53
PROVIDERS: ATTEND Family Medicine
DX: I50.33 Acute on chronic diastolic (congestive) heart failure (principal); K44.9 Diaphragmatic hernia without obstruction or gangrene; Z79.899 Other long term (current) drug therapy
CPT/HCPCS: 71046; 80053; 81001; 83880; 84439; 84443; 85025; 87086; 93005; G0463

== ENCOUNTER → 2019-10-17 | Outpatient (REF) | payer MEDICARE ==
[2019-10-17 15:48] LABS: APPEARANCE, URINE CLEAR (CLEAR); BACTERIA, URINE AUTO NEGATIVE (NEGATIVE); BASO # 0.1 10^3/uL (0.0-0.2); BASO % 1.2 % (0.0-1.0); BILIRUBIN, URINE AUTO NEGATIVE (NEGATIVE); BLOOD, URINE BLOOD NEGATIVE (NEGATIVE); COLOR, URINE YELLOW (YELLOW); EOS # 1.1 10^3/uL (0.0-0.5); EOS % 12.1 % (0.0-3.0); GLUCOSE, URINE (UA) AUTO NEGATIVE (NEGATIVE); HEMATOCRIT 41.2 % (36.0-47.0); HEMOGLOBIN 13.3 g/dl (12.0-15.5); KETONE, URINE AUTO NEGATIVE (NEGATIVE); LEUKOCYTE ESTERASE, URINE AUTO NEGATIVE (NEGATIVE); LYMPH # 1.4 10^3/uL (1.5-5.0); LYMPH % 15.7 % (24.0-44.0); MEAN CORPUSCULAR HEMOGLOBIN 29.6 pg (27.0-33.0); MEAN CORPUSCULAR HGB CONC 32.3 g/dl (32.0-36.5); MEAN CORPUSCULAR VOLUME 91.6 fl (80.0-96.0); MONO # 0.7 10^3/uL (0.0-0.8); NEUTROPHILS # 5.7 10^3/uL (1.5-8.5); NEUTROPHILS % 62.8 % (36.0-66.0); NITRITE, URINE AUTO NEGATIVE (NEGATIVE); PLATELET COUNT, AUTOMATED 193 10^3/uL (150-450); PROTEIN, URINE AUTO NEGATIVE (NEGATIVE); RBC, URINE AUTO 0 /HPF (0-3); SPECIFIC GRAVITY URINE AUTO 1.021 (1.002-1.035); SQUAMOUS EPITHELIAL CELL UR AU 1 /HPF (0-6); UROBILINOGEN, URINE AUTO 0.2 mg/dL (0.0-2.0); WBC, URINE AUTO 0 /HPF (0-3); WHITE BLOOD COUNT 9.1 10^3/uL (4.0-10.0)
[2019-10-17 16:18] LABS: ALBUMIN 3.5 GM/DL (3.2-5.2); ALT/SGPT 24 U/L (12-78); BILIRUBIN,TOTAL 0.3 MG/DL (0.2-1.0); BLOOD UREA NITROGEN 28 MG/DL (7-18); CALCIUM LEVEL 9.5 MG/DL (8.8-10.2); CARBON DIOXIDE LEVEL 27 MEQ/L (21-32); CHLORIDE LEVEL 106 MEQ/L (98-107); CREATININE FOR GFR 0.66 MG/DL (0.55-1.30); GLOMERULAR FILTRATION RATE > 60.0 (>39); GLUCOSE, FASTING 109 MG/DL (70-100); NT-PRO BNP 168 PG/ML (<450); POTASSIUM SERUM 4.1 MEQ/L (3.5-5.1); SODIUM LEVEL 141 MEQ/L (136-145); TOTAL PROTEIN 6.8 GM/DL (6.4-8.2)
[2019-10-18 08:01] LABS: FREE T4 1.04 NG/DL (0.76-1.46)
== END ==
LOC: M SFHCLERA 11:52
PROVIDERS: ATTEND Family Medicine
DX: I50.33 Acute on chronic diastolic (congestive) heart failure (principal); R06.00 Dyspnea, unspecified; Z79.899 Other long term (current) drug therapy
CPT/HCPCS: 80053; 81001; 83880; 84439; 84443; 85025; 87086; 93005; G0463

== ENCOUNTER → 2019-10-21 | Outpatient (CLI) | payer MEDICARE ==
--- NOTE | 2019-10-21 16:10 | ECHO ---
DATE OF PROCEDURE: 10/21/2019 REFERRING PHYSICIAN: Dr. Jojo Hernandez INDICATION: Dyspnea. HEIGHT: 157 cm WEIGHT: 101.2 kg 2D MEASUREMENTS: Aortic annulus: 1.8 cm Aortic root: 3.0 cm Left atrium: 3.7 cm Ventricular septum: 1.64 cm Posterior wall: 1.59 cm Left ventricle diastole: 3.7 cm Inferior vena cava: 1.3 cm (more than 50% respiratory variation). DOPPLER MEASUREMENTS: Mild aortic stenosis. Very mild aortic regurgitation. Aortic valve velocity: 285 cm/s Aortic valve VTI: 59.8 cm Peak aortic valve gradient: 33 mmHg Mean aortic valve gradient: 19 mmHg Aortic valve area: 1.09 cm squared Dimensionless index: 0.43 LVOT velocity: 117 cm/s LVOT VTI: 25.7 cm No mitral stenosis. No mitral regurgitation. Mitral E velocity: 99.8 cm/s Mitral A velocity: 123 cm/s Mild tricuspid regurgitation. Estimated right ventricle systolic pressure: 27-32 mmHg No pulmonic regurgitation. Pulmonary acceleration time: 121 ms MITRAL ANNULAR TISSUE DOPPLER: E prime septal: 4.9 cm/s E prime lateral: 5.1 cm/s DESCRIPTION: Rhythm was sinus. This was a moderately technically difficult echocardiogram. This was a 2D, M-mode, color flow Doppler and pulse wave Doppler examination and included mitral annular tissue Doppler. CONCLUSIONS: 1. Degenerative, calcific aortic valve disease with moderate aortic valve sclerosis of a 3-cusp aortic valve. Mild reduction in aortic cusp mobility. Mild aortic stenosis and very mild aortic regurgitation. 2. Moderately-severe concentric left ventricle hypertrophy. Normal regional left ventricular (LV) wall motion and wall thickening. Normal LV systolic function. Left ventricular ejection fraction (LVEF) 65% by visual estimate. Grade I LV diastolic dysfunction. 3. Moderate mitral annular calcification. Mild mitral regurgitation. No mitral stenosis. 4. Tiny pericardial effusion (circumferential). 5. Moderately technically difficult echocardiogram. RECOMMENDATIONS: Recommend a followup echocardiogram-Doppler in 1 year.
== END ==
LOC: M CARPUL 08:55
PROVIDERS: ATTEND Family Medicine
DX: R06.00 Dyspnea, unspecified (principal); I35.8 Other nonrheumatic aortic valve disorders; J90 Pleural effusion, not elsewhere classified

== ENCOUNTER 2019-11-24 15:28 | Emergency (ER) | payer MEDICARE ==
[~2019-11-24] VITALS: Ht 160 cm; Wt 101.8 kg
[2019-11-24 15:50] LABS: VENOUS BASE EXCESS 0.9 (-2.0-2.0); VENOUS HCO3 24.8 MEQ/L (23.0-27.0); VENOUS O2 SATURATION 82.6 % (60.0-80.0); VENOUS PARTIAL PRESSURE CO2 37.2 mmHg (38.0-50.0); VENOUS PARTIAL PRESSURE O2 45.4 mmHg (30.0-50.0); VENOUS PH 7.441 UNITS (7.330-7.430); VENOUS STANDARD HCO3 24.9 MEQ/L; VENOUS TOTAL CO2 25.9 MEQ/L (24.0-28.0)
[2019-11-24 15:59] LABS: BASO # 0.1 10^3/uL (0.0-0.2); BASO % 0.9 % (0.0-1.0); EOS # 1.1 10^3/uL (0.0-0.5); EOS % 11.2 % (0.0-3.0); HEMATOCRIT 43.3 % (36.0-47.0); HEMOGLOBIN 13.8 g/dl (12.0-15.5); LYMPH # 2.4 10^3/uL (1.5-5.0); LYMPH % 24.7 % (24.0-44.0); MEAN CORPUSCULAR HEMOGLOBIN 28.7 pg (27.0-33.0); MEAN CORPUSCULAR HGB CONC 31.9 g/dl (32.0-36.5); MONO # 0.8 10^3/uL (0.0-0.8); MONO % 7.9 % (0.0-5.0); NEUTROPHILS # 5.3 10^3/uL (1.5-8.5); NEUTROPHILS % 55.2 % (36.0-66.0); PLATELET COUNT, AUTOMATED 252 10^3/uL (150-450); RED BLOOD COUNT 4.81 10^6/uL (4.00-5.40); WHITE BLOOD COUNT 9.6 10^3/uL (4.0-10.0)
[2019-11-24] MEDS ORDERED: COMBIVENT RESPIMAT 100-20MCG INHALER 4GM INH ONE (16:00)
[2019-11-24 16:16] LABS: INR 1.01
[2019-11-24 16:37] LABS: ALBUMIN 3.8 GM/DL (3.2-5.2); ALT/SGPT 39 U/L (12-78); BILIRUBIN,DIRECT < 0.1 MG/DL (0.0-0.2); BILIRUBIN,TOTAL 0.5 MG/DL (0.2-1.0); NT-PRO BNP 30 PG/ML (<450); THYROXINE (T4) 10.8 UG/DL (4.5-12.0); TOTAL PROTEIN 7.5 GM/DL (6.4-8.2)
[2019-11-24 16:47] LABS: D-DIMER QUANT 849.38 ng/ml (<500)
[2019-11-24] MEDS ORDERED: ISOVUE-370 76% 100ML VIAL As Ordered ONE (17:01)
--- NOTE | 2019-11-24 17:55 | REPVR ---
PROCEDURE INFORMATION: Exam: CT Angiography Chest With Contrast Exam date and time: 11/24/2019 4:54 PM Age: 79 years old Clinical indication: Chest pain; Additional info: R/O pe TECHNIQUE: Imaging protocol: Computed tomographic angiography of the chest with intravenous contrast. 3D rendering: MIP and/or 3D reconstructed images were created by the technologist. Radiation optimization: All CT scans at this facility use at least one of these dose optimization techniques: automated exposure control; mA and/or kV adjustment per patient size (includes targeted exams where dose is matched to clinical indication); or iterative reconstruction. Contrast material: ISOVUE 370; Contrast volume: 75 ml; Contrast route: IV; COMPARISON: CT ANGIO CHEST 04/05/2018 10:50 PM FINDINGS: Pulmonary arteries: No filling defects within the main, lobar, segmental, and subsegmental pulmonary arterial branches. Aorta: Dilatation of the ascending thoracic aorta measuring up to 4.1 cm in diameter. No evidence of dissection. Lungs: No focal areas of consolidation. Pleural space: No pleural effusion or pneumothorax. Heart: Mitral annular calcifications. Small aortic valve calcifications. Lymph nodes: No enlarged lymph nodes. Stomach and bowel: Large hiatal hernia with the majority of the stomach anatomically located within the thorax. Bones/joints: Multilevel degenerative changes of the visualized spine. No acute fracture. Soft tissues: Unremarkable. IMPRESSION: 1. No CTA evidence of pulmonary embolism. 2. Large hiatal hernia with the majority of the stomach anatomically located within the thorax. 3. Other chronic findings, as above. Electronically signed by: Raul Renae On 11/24/2019 17:55:05 PM
[2019-11-24 18:46] VITALS: BP 144/79
--- NOTE | 2019-11-24 19:55 | ECGEPIP ---
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
--- NOTE | 2019-11-24 22:53 | REP ---
CHEST, SINGLE VIEW: There is no evidence of acute infiltrate. No pleural effusion is seen. The heart is normal in size. The mediastinal silhouette is unremarkable. The visualized osseous structures are intact. IMPRESSION: No acute pulmonary disease. Electronically Signed by Tyron Blakely MD 11/25/2019 01:13 P
== END 2019-11-24 19:43 | disposition home or self-care (01) ==
LOC: M ED 15:28
DX: R07.9 Chest pain, unspecified (principal); R06.02 Shortness of breath; E11.9 Type 2 diabetes mellitus without complications; E78.5 Hyperlipidemia, unspecified; D64.9 Anemia, unspecified; Z79.899 Other long term (current) drug therapy
CPT/HCPCS: 36415; 71045; 71275; 80047; 80076; 82803; 83880; 84436; 84443; 84484; 85025; 85379; 85610; 87040; 93005; 94640; 99284; Q9967

== ENCOUNTER → 2019-11-29 | Outpatient (REF) | payer MEDICARE ==
[~2019-11-29] MED LIST changes: +ACET650T61 PO; -AMLO10TA5 PO; +AMLO1TAB25 PO; -ASPI81TA85 PO; +ASPI81TA86 PO; +D31000TA2 PO; +DARI15TA11 PO; -DARI15TA2 PO; +GABA-282 PO; -GABA-843 PO; +PANT40TA29 PO; -PANT40TA3 PO; -TYLE650T35 PO
[2019-11-29 17:40] LABS: HEMATOCRIT 45.5 % (36.0-47.0); HEMOGLOBIN 14.6 g/dl (12.0-15.5); MEAN CORPUSCULAR HEMOGLOBIN 29.2 pg (27.0-33.0); MEAN CORPUSCULAR HGB CONC 32.1 g/dl (32.0-36.5); PLATELET COUNT, AUTOMATED 293 10^3/uL (150-450); WHITE BLOOD COUNT 12.5 10^3/uL (4.0-10.0)
[2019-11-29 18:30] LABS: ALBUMIN 4.3 GM/DL (3.2-5.2); BILIRUBIN,TOTAL 0.3 MG/DL (0.2-1.0); CALCIUM LEVEL 9.8 MG/DL (8.8-10.2); CREATININE FOR GFR 1.38 MG/DL (0.55-1.30); FREE T4 1.13 NG/DL (0.76-1.46); GLOMERULAR FILTRATION RATE 39.5 (>39); POTASSIUM SERUM 4.9 MEQ/L (3.5-5.1); THYROID STIMULATING HORMONE 7.36 uIU/ML (0.358-3.740); TOTAL PROTEIN 8.1 GM/DL (6.4-8.2)
[2019-11-29 19:11] LABS: HEMOGLOBIN A1c 7.2 %
== END ==
LOC: M SFHCADAM 15:11
PROVIDERS: ATTEND Family Medicine
DX: D50.0 Iron deficiency anemia secondary to blood loss (chronic) (principal); E11.40 Type 2 diabetes mellitus with diabetic neuropathy, unspecified; F41.9 Anxiety disorder, unspecified; I50.33 Acute on chronic diastolic (congestive) heart failure
CPT/HCPCS: 80053; 82728; 83036; 83550; 83880; 84439; 84443; 85027; 85046; G0463

== ENCOUNTER → 2020-01-03 | Outpatient (CLI) | payer MEDICARE ==
[~2020-01-03] MED LIST changes: -GABA-282 PO; +GABA-843 PO
== END ==
LOC: M LABSMTC 11:40
PROVIDERS: ATTEND Anesthesiology
DX: Z01.818 Encounter for other preprocedural examination (principal); Z11.59 Encounter for screening for other viral diseases
CPT/HCPCS: C9803; U0003

== ENCOUNTER 2020-01-06 08:18 | Day surgery (SDC) | payer MEDICARE ==
[~2020-01-06] VITALS: Ht 160 cm; Wt 100.7 kg
[2020-01-06] MEDS ORDERED: NS 1,000 ML IV ONE (08:30)
[2020-01-06] MEDS ORDERED: LIDOCAINE 2% 100MG/5ML SDV (FOR ANES.) As Ordered ONE (10:12)
[2020-01-06] MEDS ORDERED: propofoL 200 MG/20 ML VIAL As Ordered ONE ×2 (10:12→10:43)
--- NOTE | 2020-01-06 11:00 | ROOR ---
Patient Name: Sherrie Jose Procedure Date: 01/06/2020 10:18 AM Date of : 1940 Age: 79 Room: [facility] Gender: Female Note Status: Finalized Procedure: Upper GI endoscopy Indications: Iron deficiency anemia Providers: Kevin VALLE MD Referring MD: Ralu Prescott MD Requesting Provider: Medicines: Monitored Anesthesia Care Complications: No immediate complications. Procedure: Pre-Anesthesia Assessment: - The heart rate, respiratory rate, oxygen saturations, blood pressure, adequacy of pulmonary ventilation, and response to care were monitored throughout the procedure. The Endoscope was introduced through the mouth, and advanced to the second part of duodenum. The upper GI endoscopy was accomplished without difficulty. The patient tolerated the procedure well. Findings: The examined esophagus was normal. The Z-line was regular and was found 30 cm from the incisors. A large hiatal hernia with two Fabrizio erosions/ulcers was found. This was biopsied with a cold forceps for histology. The examined duodenum was normal. Impression: - Normal esophagus. - Z-line regular, 30 cm from the incisors. - Large hiatal hernia with two linear Fabrizio erosions/ulcers. Biopsied. - Normal examined duodenum. Recommendation: - Use a proton pump inhibitor PO daily. - Recommend an iron supplement. - Observe patient's clinical course. - If persistently anemic despite PPI and Iron supplementation, then will need to follow up with surgery again to repair Hiatal Hernia. Kevin Valle MD Kevin VALLE MD 01/06/2020 10:59:44 AM Electronically signed by Kevin VALLE MD Number of Addenda: 0 Note Initiated On: 01/06/2020 10:18 AM Estimated Blood Loss: Estimated blood loss: none.
--- NOTE | 2020-01-06 11:03 | ROOR ---
Patient Name: Sherrie Jose Procedure Date: 01/06/2020 10:18 AM Date of : 1940 Age: 79 Room: [facility] Gender: Female Note Status: Finalized Procedure: Colonoscopy Indications: Iron deficiency anemia Providers: Kevin VALLE MD Referring MD: Raul Prescott MD Requesting Provider: Medicines: Monitored Anesthesia Care Complications: No immediate complications. Procedure: Pre-Anesthesia Assessment: - The heart rate, respiratory rate, oxygen saturations, blood pressure, adequacy of pulmonary ventilation, and response to care were monitored throughout the procedure. The Colonoscope was introduced through the anus and advanced to the cecum, identified by appendiceal orifice and ileocecal valve. The colonoscopy was performed without difficulty. The patient tolerated the procedure well. The quality of the bowel preparation was good. The bowel preparation used was TriLyte via 2x4 Liters split dosing ('nerogenic prep") dose instruction. Findings: Skin tags were found on perianal exam. Internal hemorrhoids were found during retroflexion. The hemorrhoids were medium-sized. Multiple small-mouthed diverticula were found in the sigmoid colon. The exam was otherwise without abnormality on direct and retroflexion views. Impression: - Perianal skin tags found on perianal exam. - Moderate Internal hemorrhoids. - Mild diverticulosis in the sigmoid colon. - The examination was otherwise normal on direct and retroflexion views. - No specimens collected. Recommendation: - Continue present medications. - Return to referring physician as previously scheduled. Kevin Valle MD Kevin VALLE MD 01/06/2020 11:03:26 AM Electronically signed by Kevin VALLE MD Number of Addenda: 0 Note Initiated On: 01/06/2020 10:18 AM Estimated Blood Loss: Estimated blood loss: none.
[2020-01-06 11:20] VITALS: BP 121/60
== END 2020-01-06 11:45 | disposition home or self-care (01) ==
LOC: M OPP 08:18
PROVIDERS: ATTEND Internal Medicine Gastroenterology
DX: K57.30 Diverticulosis of large intestine without perforation or abscess without bleeding (principal); K64.0 First degree hemorrhoids; K64.4 Residual hemorrhoidal skin tags; D50.9 Iron deficiency anemia, unspecified; K44.9 Diaphragmatic hernia without obstruction or gangrene; K25.9 Gastric ulcer, unspecified as acute or chronic, without hemorrhage or perforation; E11.9 Type 2 diabetes mellitus without complications; I11.0 Hypertensive heart disease with heart failure; M79.7 Fibromyalgia; G47.30 Sleep apnea, unspecified; Z79.899 Other long term (current) drug therapy; Z88.2 Allergy status to sulfonamides; Z91.013 Allergy to seafood

== ENCOUNTER 2020-02-10 11:50 | Day surgery (SDC) | payer MEDICARE ==
[2020-02-10] MEDS ORDERED: ceFAZolin 2 GM/D5W 50 ML IV BAG (J0690 PER 500MG) As Ordered ONE (12:01)
[2020-02-10] MEDS ORDERED: LIDOCAINE 2% 100MG/5ML SDV (FOR ANES.) As Ordered ONE (12:59)
[2020-02-10] MEDS ORDERED: propofoL 200 MG/20 ML VIAL As Ordered ONE ×2 (12:59→15:09)
[2020-02-10] MEDS ORDERED: dexameTHASONE 4 MG/ML 1ML VIAL (J1100 PER 1MG) As Ordered ONE (12:59)
[2020-02-10] MEDS ORDERED: ONDANSETRON 4MG/2ML VIAL As Ordered ONE (12:59)
[2020-02-10] MEDS ORDERED: MIDAZOLAM INJ 2MG/2ML VIAL (J2250 PER 1MG) As Ordered ONE (12:59)
[2020-02-10] MEDS ORDERED: fentaNYL 100 MCG/2 ML INJECTION (J3010) As Ordered ONE (12:59)
[2020-02-10] MEDS ORDERED: BOTOX THERAPEUTIC 100 UNIT VIAL (J0585 PER 1 UNIT) As Ordered ONE (14:32)
[2020-02-10] MEDS ORDERED: LIDOCAINE 2% 5ML JELLY UROJET As Ordered ONE (14:36)
[2020-02-10] MEDS ORDERED: LIDOCAINE 2% MDV 20ML VIAL As Ordered ONE (14:42)
--- NOTE | 2020-04-02 09:37 | RO ---
DATE OF OPERATION: 02/10/2020 PREOPERATIVE DIAGNOSIS: Urinary incontinence. POSTOPERATIVE DIAGNOSIS: Urinary incontinence. PROCEDURE: Hydrodistention and Botox injection. SURGEON: Jalil Elizabeth MD ANESTHESIA: MAC. INDICATION FOR OPERATION: This is a 79-year-old white female with urinary incontinence. He was evaluated in the office and scheduled for hydrodistention and Botox injection for control of incontinence. DESCRIPTION OF OPERATION: The patient was anesthetized with general anesthesia, placed in lithotomy position, prepped with Betadine paint, draped in an aseptic manner and a timeout was then performed. A 22 [place] cystoscope was then inserted into the meatus and advanced under direct vision of a 30 degree lens to the bladder. The patient was found to have some evidence of chronic cystitis but otherwise normal bladder. Her bladder was then inflated to 300 mL until it stopped filling under gravity pressure. This pressure was then held for three minutes and the bladder deflated. There was no capillary hemorrhaging. 100 units of Botox was then injected in the bladder in ten separate locations. The bladder was then drained and 60 mL of 2% lidocaine was then left in the bladder lumen when the scope was removed. The patient was then awakened and sent to recovery room in stable condition, having tolerated the procedure well. DARREN
== END 2020-02-10 16:43 | disposition home or self-care (01) ==
LOC: M SDC 11:50
PROVIDERS: ATTEND Urology
DX: R32 Unspecified urinary incontinence (principal); D64.9 Anemia, unspecified; E11.9 Type 2 diabetes mellitus without complications; Z91.013 Allergy to seafood; Z88.2 Allergy status to sulfonamides; Z88.5 Allergy status to narcotic agent; M79.7 Fibromyalgia; I10 Essential (primary) hypertension; F32.9 Major depressive disorder, single episode, unspecified; G47.30 Sleep apnea, unspecified; Z79.899 Other long term (current) drug therapy
CPT/HCPCS: 52260; 52287; J0585; J0690; J2250; J2405; J3010

== ENCOUNTER → 2020-02-20 | Outpatient (REF) | payer MEDICARE ==
[2020-02-20 19:43] LABS: APPEARANCE, URINE HAZY (CLEAR); BACTERIA, URINE AUTO NEGATIVE (NEGATIVE); BILIRUBIN, URINE AUTO NEGATIVE (NEGATIVE); BLOOD, URINE BLOOD NEGATIVE (NEGATIVE); COLOR, URINE YELLOW (YELLOW); GLUCOSE, URINE (UA) AUTO NEGATIVE (NEGATIVE); KETONE, URINE AUTO NEGATIVE (NEGATIVE); LEUKOCYTE ESTERASE, URINE AUTO 3+ (NEGATIVE); MUCUS, URINE SMALL (NEGATIVE); NITRITE, URINE AUTO NEGATIVE (NEGATIVE); PROTEIN, URINE AUTO NEGATIVE (NEGATIVE); RBC, URINE AUTO 4 /HPF (0-3); SPECIFIC GRAVITY URINE AUTO 1.019 (1.002-1.035); SQUAMOUS EPITHELIAL CELL UR AU 4 /HPF (0-6); UROBILINOGEN, URINE AUTO 0.2 mg/dL (0.0-2.0); WBC, URINE AUTO 6 /HPF (0-3)
== END ==
LOC: M LAB REF 17:28
PROVIDERS: ATTEND Nurse Practitioner Family
DX: N39.0 Urinary tract infection, site not specified (principal)

== ENCOUNTER → 2020-02-25 | Outpatient (REF) | payer MEDICARE ==
[2020-02-25 17:40] LABS: APPEARANCE, URINE CLEAR (CLEAR); BACTERIA, URINE AUTO NEGATIVE (NEGATIVE); BILIRUBIN, URINE AUTO NEGATIVE (NEGATIVE); BLOOD, URINE BLOOD NEGATIVE (NEGATIVE); COLOR, URINE YELLOW (YELLOW); GLUCOSE, URINE (UA) AUTO NEGATIVE (NEGATIVE); KETONE, URINE AUTO NEGATIVE (NEGATIVE); LEUKOCYTE ESTERASE, URINE AUTO TRACE (NEGATIVE); MUCUS, URINE SMALL (NEGATIVE); NITRITE, URINE AUTO NEGATIVE (NEGATIVE); PROTEIN, URINE AUTO NEGATIVE (NEGATIVE); RBC, URINE AUTO 1 /HPF (0-3); SPECIFIC GRAVITY URINE AUTO 1.017 (1.002-1.035); SQUAMOUS EPITHELIAL CELL UR AU 3 /HPF (0-6); UROBILINOGEN, URINE AUTO 0.2 mg/dL (0.0-2.0); WBC, URINE AUTO 2 /HPF (0-3)
== END ==
LOC: M SMT 15:15
PROVIDERS: ATTEND Nurse Practitioner Family
DX: N39.0 Urinary tract infection, site not specified (principal)

== ENCOUNTER → 2020-04-23 | Outpatient (REF) | payer MEDICARE ==
[2020-04-23 12:24] LABS: HEMATOCRIT 45.5 % (36.0-47.0); HEMOGLOBIN 14.1 g/dl (12.0-15.5); MEAN CORPUSCULAR HEMOGLOBIN 27.3 pg (27.0-33.0); MEAN CORPUSCULAR VOLUME 88.2 fl (80.0-96.0); PLATELET COUNT, AUTOMATED 233 10^3/uL (150-450); RED BLOOD COUNT 5.16 10^6/uL (4.00-5.40); WHITE BLOOD COUNT 10.1 10^3/uL (4.0-10.0)
[2020-04-23 13:01] LABS: ALBUMIN 3.9 GM/DL (3.2-5.2); ALT/SGPT 31 U/L (12-78); BILIRUBIN,TOTAL 0.4 MG/DL (0.2-1.0); BLOOD UREA NITROGEN 18 MG/DL (7-18); CALCIUM LEVEL 9.7 MG/DL (8.8-10.2); CARBON DIOXIDE LEVEL 34 MEQ/L (21-32); CHLORIDE LEVEL 99 MEQ/L (98-107); CREATININE FOR GFR 0.94 MG/DL (0.55-1.30); GLOMERULAR FILTRATION RATE > 60.0 (>39); GLUCOSE, FASTING 119 MG/DL (70-100); POTASSIUM SERUM 3.8 MEQ/L (3.5-5.1); SODIUM LEVEL 140 MEQ/L (136-145); TOTAL PROTEIN 7.7 GM/DL (6.4-8.2)
[2020-04-23 13:02] LABS: FERRITIN 34 NG/ML (8-252); FREE T4 1.27 NG/DL (0.76-1.46); IRON (FE) 75 UG/DL (50-170); PERCENT SATURATION 17.4 % (13.2-45.0); TOTAL IRON BINDING CAPACITY 432 UG/DL (250-450)
[2020-04-23 13:22] LABS: HEMOGLOBIN A1c 7.2 %
== END ==
LOC: M SFHCADAM 09:52
PROVIDERS: ATTEND Family Medicine
DX: D50.0 Iron deficiency anemia secondary to blood loss (chronic) (principal); E03.9 Hypothyroidism, unspecified; E11.40 Type 2 diabetes mellitus with diabetic neuropathy, unspecified; I50.33 Acute on chronic diastolic (congestive) heart failure

== ENCOUNTER → 2020-04-23 | Outpatient (CLI) | payer MEDICARE ==
--- NOTE | 2020-04-23 14:43 | REP ---
INDICATION: DEGENRATION, INTERVERTEBRAL DISC, LUMBOSACRAL. COMPARISON: Comparison study December 18, 2018.. TECHNIQUE: Five views. FINDINGS: Transpedicle screw and dorsal interconnecting carmine fixation is seen across the L4-5 level bilaterally. There is a stable grade 1, L4-5, 7 mm spondylolisthesis unchanged. Degenerative disc disease is present at L3-4 and L5-S1 with vacuum phenomena at both these levels. Anterior osteophyte formation is seen at both these levels. There is a minimal spondylolisthesis at L3-4 due to degenerative disc and facet changes, 4 mm. This is unchanged. No fracture or collapse is seen. The 4-5 disc appears to be ankylosed with intra-disc spacer fusion. Psoas margins are symmetric. Sacrum and SI joints are intact. IMPRESSION: Status post L4-5 fusion with laminectomy. Stable 7 mm L4-5 and 4 mm L3-4 spondylolistheses due to degenerative changes. Advanced degenerative disc disease at L3-4 and L5. Findings are unchanged from the December 18, 2018 study. <Electronically signed by Guille Olvera > 04/23/20 1374
== END ==
LOC: M ADAMS 10:06
PROVIDERS: ATTEND Family Medicine
DX: M51.37 Other intervertebral disc degeneration, lumbosacral region (principal); D50.0 Iron deficiency anemia secondary to blood loss (chronic); E03.9 Hypothyroidism, unspecified; E11.40 Type 2 diabetes mellitus with diabetic neuropathy, unspecified; I50.33 Acute on chronic diastolic (congestive) heart failure
CPT/HCPCS: 72110; 80053; 82728; 83036; 83550; 84439; 84443; 85027; 85046; G0463

== ENCOUNTER → 2020-04-29 | Outpatient (REF) | payer MEDICARE ==
[2020-04-29 16:03] LABS: APPEARANCE, URINE MANUAL CLEAR (CLEAR); COLOR, URINE MANUAL YELLOW (YELLOW); GLUCOSE, URINE (UA) MANUAL NEGATIVE (NEGATIVE); KETONE, URINE MANUAL NEGATIVE (NEGATIVE); PROTEIN, URINE MANUAL NEGATIVE (NEGATIVE); UROBILINOGEN, URINE MANUAL NORMAL (NORMAL)
[2020-04-29 16:04] LABS: BILIRUBIN, URINE MANUAL NEGATIVE (NEGATIVE); BLOOD URINE MANUAL NEGATIVE (NEGATIVE); LEUKOCYTE ESTERASE, URINE MAN NEGATIVE (NEGATIVE); NITRITE, URINE MANUAL NEGATIVE (NEGATIVE)
== END ==
LOC: M SFHCADAM 15:18
PROVIDERS: ATTEND Family Medicine
DX: R30.0 Dysuria (principal)

== ENCOUNTER → 2020-05-14 | Outpatient (REF) | payer MEDICARE | LOC: M SFHCADAM 09:36 | PROVIDERS: ATTEND Family Medicine | DX: N39.0 Urinary tract infection, site not specified (principal) | CPT/HCPCS: 87086; G0463 ==

== ENCOUNTER → 2020-07-07 | Outpatient (CLI) | payer MEDICARE ==
[~2020-07-07] MED LIST changes: +GABA-282 PO; -GABA-843 PO
--- NOTE | 2020-07-08 23:45 | ECWPNPC ---
PATIENT NAME: ROWAN FATIMA : 1940 GENDER: FEMALE VISIT DATE: 07/07/2020 DISCHARGE DATE: 07/07/20 1500 VISIT LOCKED DATE TIME: PHYSICIAN: LISY BIRD PHYSICIAN PAGER NO: ACTIVE RESOURCE: LISY BIRD REASON FOR APPOINTMENT 1. BACK HISTORY OF PRESENT ILLNESS DEPRESSION SCREENIN-YEAR-OLD FEMALE IN FOR INITIAL PAIN CONSULT. SHE RATES HER PAIN CURRENTLY AT A 7 OUT OF 10 AND DESCRIBES IT ACHING AND CONTINUOUS. PATIENT HAS COMPLAINTS OF LOW BACK PAIN THAT RADIATES INTO HER BUTTOCKS AND HIP AREA. WHEN ASKED PATIENT DENIES HISTORY OF TRAUMA TO THE AREA. SHE DOES ADMIT TO INJECTIONS IN THE PAST WHICH WERE OF SOME BENEFIT. PATIENT HAS NOT HAD RECENT IMAGING PER HER REPORT. GENERAL: - - - -. FALL RISK SCREENING: SCREENING :ONE FALL WITHOUT INJURY IN THE PAST YEAR FELL 07/05/2020 PATIENT HAD SOME BRUISING BUT DID NOT SEEK MEDICAL TREATMENT. PAIN SCREENING: PATIENT HAS A COMPLAINT OF ACUTE OR CHRONIC PAIN :YES LOCATION OF PAIN:MID BACK, LOW BACK, LEFT HIP, RIGHT HIP, LEG(S) INTENSITY OF PAIN (SCALE OF 1 TO 10):7 WHAT DOES YOUR PAIN FEEL LIKE:ACHING, CONTINOUS DURATION:CONTINOUS, CONSTANT, MAINLY DURING THE NIGHT, AWAKENS FROM SLEEP PAIN IS INCREASED BY:ACTIVITIES DAILY ACTIVITIES PAIN IS DECREASED BY:OTHERS LAYING FLAT TREATMENT/MEDICATIONS USED TO MANAGE PAIN:OPIOIDS LEVEL OF RELIEF FROM PAIN TREATMENTS IN THE PAST:0% NURSING NOTE: - - - -. PAIN CENTER INTAKE QUESTIONS: DO YOU HAVE A HISTORY OF MRSA? :NO DO YOU TAKE A BLOOD THINNERS? :NO DO YOU HAVE ANY BLEEDING DISORDERS? :NO ANY NEW NUMBNESS OR WEAKNESS IN YOUR LEGS OR ARMS? :YES NUMBNESS IN BILATERAL HANDS AND FEET. ANY PACEMAKER,DEFIBRILLATOR, OR DORSAL COLUMN STIMULATOR? :NO DO YOU HAVE ANY RASHES OR OPEN SORES? :NO ARE YOU ALLERGIC TO IV DYE? :NO ARE YOU DIABETIC? :YES ANY NEW PROBLEMS WITH YOUR MEDICATIONS? :NO HAVE YOU RECEIVED A VACCINE IN THE PAST 30 DAYS? :NO DO YOU PLAN TO RECEIVE A VACCINE IN THE NEXT 21 DAYS? :NO DO YOU NEED ANY PRESCRIPTION? :NO DO YOU TAKE ANY IMMUNOSUPPRESSIVE MEDICATIONS? :NO IS THERE A CHANCE YOU COULD BE ? :NO ARE YOU BREAST FEEDING? :NO CURRENT MEDICATIONS TAKING ACETAMINOPHEN 650 MG TABLET 2 TABLET NEEDED ORALLY EVERY 6 HRS TAKING CALCIUM-VITAMIN D 500-400 MG-UNIT TABLET 2 TAB ORALLY DAILY TAKING ARTIFICIAL TEARS 1-0.3 % SOLUTION 1 GTT IN EACH EYE OPHTHALMIC FOUR TIMES DAILY NEEDED TAKING FERROUS GLUCONATE 324 (38 FE) MG TABLET 1 TABLET WITH WATER OR JUICE BETWEEN MEALS ORALLY BID TAKING METFORMIN HCL 500 MG TABLET 1 TABLET WITH A MEAL ORALLY BID TAKING METOPROLOL SUCCINATE ER 25 MG TABLET EXTENDED RELEASE 24 HOUR 1 TABLET ORALLY ONCE A DAY TAKING DULOXETINE HCL 60 MG CAPSULE DELAYED RELEASE PARTICLES 1 CAP ORALLY DAILY TAKING PANTOPRAZOLE SODIUM 40 MG TABLET DELAYED RELEASE 1 TABLET ORALLY ONCE A DAY TAKING LOSARTAN POTASSIUM 50 MG TABLET 1 TABLET ORALLY ONCE A DAY TAKING AMLODIPINE BESYLATE 2.5 MG TABLET 1 TABLET ORALLY ONCE A DAY TAKING LYRICA 100 MG CAPSULE 1 CAPSULE ORALLY TWICE A DAY NOT-TAKING CLOTRIMAZOLE 2 % CREAM 1 APPLICATION AT BEDTIME VAGINAL ONCE A DAY NOT-TAKING DIFLUCAN 150 MG TABLET 1 TABLET ORALLY DIRECTED NOT-TAKING NITROFURANTOIN MONOHYD MACRO 100 MG CAPSULE 1 CAP ORALLY BID NOT-TAKING BUMETANIDE 1 MG TABLET 1 TABLET ORALLY DAILY NOT-TAKING DIFLUCAN 150 MG TABLET 1 TABLET ORALLY DAILY NOT-TAKING NITROFURANTOIN MONOHYD MACRO 100 MG CAPSULE 1 CAP ORALLY BID NOT-TAKING BUPROPION HCL ER (XL) 300 MG TABLET EXTENDED RELEASE 24 HOUR 1 TABLET IN THE MORNING ORALLY ONCE A DAY NOT-TAKING SPIRONOLACTONE 25 MG TABLET 1/2 TABLET ORALLY ONCE A DAY NOT-TAKING BUSPIRONE HCL 10 MG TABLET 1/2 TABLET BID FOR THREE DAYS THEN 1 TAB BID ORALLY NOT-TAKING MACROBID 100 MG CAPSULE 1 CAPSULE WITH FOOD ORALLY TAKE ONE TABLET BID MEDICATION LIST REVIEWED AND RECONCILED WITH THE PATIENT PAST MEDICAL HISTORY HTN WELL CONTROLLED TYPE 2 DIABETES FIBROMYALGOA ARTHRITIS DIASTOLIC HEART FAILURE/LVH-- EF 65%, SEES [facility]/DR EMERSON DEPRESSION HX OF VIRAL MENGITIS ECHO 10/13: EF 65%, MILD (MEAN GRADIENT 19 MM), MILD AR; CONCENTRIC LVH INCONTINENCE HIATAL HERNIA AND CHRONIC GASTRITIS--CT 11/12 LARGE HH; EGD 01/12 SHOWED 2 ABI ULCERS (IRON DEFIC ANEMIA) RACHEL-- DOESN'T TOLERATE CPAP IRON DEFIC ANEMIA--IRON INFUSION IN [place] 2017; EGD/COLO 01/12 (ABI ULCERS) SUBCLINICAL HYPOTHYROIDISM 01/12 CHRONIC LOW BACK PAIN--DDD/DJD ALLERGIES SULFA (FOR ALLERGY USE ONLY): HIVES - ALLERGY SHELLFISH: ANAPHYLAXIS - ALLERGY SURGICAL HISTORY HYSTERECTOMY BOTH KNEES REPLACED BACK SURGERY L4 AND L5 EGD AND COLONOSCOPY--BX SHOWED CHRONIC GASTRITIS 2016; 2 ABI ULCERS ON EGD 01/12, 01/12 BLADDER HYDRODISTENSION/ BOTOX 82/0 ENDOSCOPY 2019 COLONOSCOPY 2019 FAMILY HISTORY FATHER: UNKNOWN MOTHER: , DIAGNOSED WITH HYPERTENSION 3 SISTER(S) - HEALTHY. 1 SON(S) , 2 DAUGHTER(S) . SON: DIABETIC\\NMOTHER SKIN CANCER. SOCIAL HISTORY GENERAL: TOBACCO USE ARE YOU A:NONSMOKER LATEX QUESTIONNAIRE LATEX ALLERGY : HAVE YOU EVER DEVELOPED ANY TYPE OF REACTION AFTER HANDLING LATEX PRODUCTS SUCH RUBBER GLOVES, CONDOMS, DIAPHRAGMS, BALLOONS, SOCKS, OR UNDERWEAR?NO LATEX ALLERGY : HAVE YOU EVER DEVELOPED ANY TYPE OF REACTION DURING OR AFTER DENTAL APPOINTMENT, VAGINAL/RECTAL EXAMINATION, SURGICAL PROCEDURE, OR ANY OTHER EXPOSURE?NO LATEX RISK : HAVE YOU EVER HAD ANY DIFFICULTY BREATHING OR HIVES AFTER EATING OR HANDLING ANY FRUITS, OR VEGETABLES; SUCH KIWI, BANANAS, STONE FRUITS, OR CHESTNUTSNO LATEX RISK : DO YOU HAVE A PREVIOUS PERSONAL HISTORY OF MORE THAN NINE SURGERIES, SPINA BIFIDA, OR REPEATED CATHERIZATIONS? NO LATEX RISK : ARE YOU FREQUENTLY EXPOSED TO LATEX PRODUCTS IN YOUR OCCUPATION?NO DATE ASKED : 07/07/2020 LUNG CANCER SCREENING SMOKING STATUS:NON SMOKER BMI CARE GOAL FOLLOW-UP ABOVE NORMAL BMI FOLLOW-UPDIETARY MANAGEMENT EDUCATION, GUIDANCE, AND COUNSELING ALCOHOL SCREENING DID YOU HAVE A DRINK CONTAINING ALCOHOL IN THE PAST YEAR?NO POINTS0 INTERPRETATIONNEGATIVE RECREATIONAL DRUG USE DRUG USE?NO CAFFEINE CAFFEINE USE?YES 2 DIET SODAS A WEEK SEXUAL HX HAD SEX IN THE LAST 12 MONTHS (VAGINAL, ORAL, OR ANAL)?NO HAVE YOU EVER HAD AN STD?NO HIV / HEP-C SCREENING HIV TEST OFFERED TO PATIENT:YES DATE OFFERED:07/26/2018 TEST ACCEPTED:NO HEP-C TEST OFFERED TO PATIENT:YES DATE OFFERED:07/26/2018 REASON:PATIENT DECLINED TEST ACCEPTED:NO REASON:PATIENT DECLINED BROCHURE PROVIDED TO PATIENTNO [employer] [id number] NONE LANGUAGE LANGUAGES SPOKEN:SETSWANA EDUCATION SOME COLLEGE. LEARNING BARRIERS / SPECIAL NEEDS CHANGE FROM LAST VISIT?NO BARRIERS TO LEARNING?NO HEARING IMPAIRED?YES HEARING AID VISION IMPAIRED?NO COGNITIVELY IMPAIRED?NO READINESS TO LEARN?YES LEARNING PREFERENCES?NO LEARNING CAPABILITIES PRESENT?YES EMOTIONAL BARRIERS?NO SPECIAL DEVICES?YES :CANE PHOTOGRAPHIC PLATEMAKER NEEDED?NO DOMESTIC VIOLENCE DO YOU FEEL SAFE IN YOUR ENVIRONMENT?YES OCCUPATION: RETIRED. DIET: REGULAR. EXERCISE: NO REGULAR EXERCISE. MARITAL STATUS: . OTHERS AT HOME: NONE. PAIN CLINIC PFS, CLERGY, PUBLIC HEALTH REFERRALS HAS THE PATIENT BEEN EDUCATED REGARDING HIS/HER PLAN OF CARE?YES HAS THE PATIENT BEEN EDUCATED REGARDING PAIN, THE RISK FOR PAIN, THE IMPORTANCE OF EFFECTIVE PAIN MANAGEMENT, AND THE PAIN ASSESSMENT PROCESS?YES ADVANCE DIRECTIVE ADVANCE DIRECTIVE DISCUSSED WITH PATIENT: NO ADVANCED CARE DIRECTIVES AT THIS TIME. PATIENT GIVEN HCP INFORMATION AND VERBALIZED UNDERSTANDING. WILL TAKE HOME TO REVIEW. 07/07/20 HOSPITALIZATION/MAJOR DIAGNOSTIC PROCEDURE CHILDBIRTH TIMES 3 VIRAL MENINGITIS AT [facility] 02/2019 REVIEW OF SYSTEMS CONSTITUTIONAL: ANY RECENT FEVER NO . CHILLS NO . WEIGHT CHANGE OF UNKNOWN REASONS NO . MUSCULOSKELETAL: ANY UNUSUAL JOINT PAIN OR SWELLING NOT MENTIONED NO . SYSTEMIC LUPUS NO . ANY NEUROMUSCULAR DISORDER NOT MENTIONED NO . LYME DISEASE NO . GASTROENTEROLOGY: ANY NEW CHANGE IN BOWEL CONTROL? NO . HISTORY OF LIVER DISORDER NOT MENTIONED NO . HISTORY OF UNUSUAL ABDOMINAL PAIN OR CRAMPING NOT MENTIONED NO . NO CONSTIPATION. GENITOURINARY: ANY NEW CHANGE IN BLADDER CONTROL? NO . ANY RENAL/KIDNEY CONDITON NOT MENTIONED NO . NEUROLOGY: HISTORY OF TBI NOT MENTIONED NO . OTHER NEW NUMBNESS OR PAIN PATTERNS NOT MENTIONED NO . NEW ONSET DIZZINESS OR NEUROLOGICAL CHANGES NOT MENTIONED NO . HISTORY OF SEVERE HEADACHES NOT MENTIONED NO . HISTORY OF STROKE OR NEUROLOGICAL DISORDER NOT MENTIONED NO . CARDIOLOGY: HEART SURGERY NO . CONGESTIVE HEART FAILURE/FLUID OVERLOAD NOT MENTIONED NO . HISTORY OF CHEST PAIN,IRREGULAR HEART BEAT NOT MENTIONED NO . RESPIRATORY: SHORTNESS OF BREATH ON EXERTION, WHEEZES, UNUSUAL COUGH NOT MENTIONED NO . ENDOCRINOLOGY: ADRENAL GLAND OR THYROID DISORDERS NOT MENTIONED NO . UNUSUAL URINATION, DIZZINESS OR LETHARGY NOT MENTIONED NO . VITAL SIGNS WT 214.2 LBS, HT 63 IN, BMI 37.94 INDEX, BP 142/99 MM HG, HR 96 /MIN, RR 22 /MIN, TEMP 96.5 F, OXYGEN SAT % 95, SAFE IN ENV? (Y/N) YES, REVIEWED BY: ELIEZER EUCEDA MA. EXAMINATION GENERAL EXAMINATION: GENERALNO ACUTE DISTRESS, WELL NOURISHED AND HYDRATED. PSYCHAPPROPRIATE MOOD AND AFFECT . LUNGS:CLEAR TO AUSCULTATION BILATERALLY, NO WHEEZES, RHONCHI, RALES. HEART:MURMUR NOTED WITH REGULAR RATE. BACK:POINT TENDER ALONG LUMBAR SPINE, SURROUNDING SKIN SHOWS NO ERYTHEMA, ECCHYMOSIS, INCREASED WARMTH, AND/OR SKIN ERUPTIONS NOTED. POSITIVE MODIFIED SLR RIGHT SIDE. . MUSCULOSKELETAL:WEAKNESS OF THE LOWER EXTREMITIES NOTED . ASSESSMENTS LOW BACK PAIN - M54.5 (PRIMARY) TREATMENT LOW BACK PAIN START TRAMADOL HCL TABLET, 50 MG, 1 TABLET NEEDED, ORALLY, TWICE DAILY PRN PAIN, 30 DAYS, 60 LAB: PAIN CENTER URINE TOX (SEND OUT) [facility] MRI LS SPINE W/O AND WITH [id number] NOTES: 79-YEAR-OLD FEMALE IN FOR INITIAL PAIN CONSULT. GIVEN PRESENTING SYMPTOMS AND RESULTS OF PHYSICAL EXAMINATION RECOMMEND STARTING TRAMADOL 50 MG TWICE A DAY, AND GETTING AN UPDATED MRI. U TOX WILL BE COLLECTED TODAY. PATIENT HAS EXPRESSED UNDERSTANDING OF AND WAS IN AGREEMENT WITH TREATMENT PLAN. GIVEN TIME TO ASK QUESTIONS AND EXPRESS CONCERNS. , ISTOP REGISTRY REVIEWED AND DEMONSTRATES COMPLLIANCE. (REF # [id number] ) BRINGS IN MEDICATIONS WHICH IS APPROPRIATE FOR WHAT WAS DISPENSED. RECENT URINE TOXICOLOGY REVIEWED. NO UNAUTHORIZED MEDICATIONS. NO ILLICIT SUBSTANCES AND PRESCRIBED MEDICATIONS WERE PRESENT. , RISKS OF NARCOTIC/OPIOD MEDICATIONS INCLUDES BUT IS NOT LIMITED TO RISK OF DEPENDANCE/DEVELOPMENT OF ADDICTION, MOOD DISTURBANCE AND DEPRESSION, OSTEOPOROSIS, HORMONAL AND LABIDAL CHANGES, RESPIRATORY DEPRESSION AND . PATIENT IS ADVISED NOT TO DRIVE OR DRINK ALCOHOL WHILE ON THESE MEDICATIONS. PROCEDURE CODES FA211 ESTABILISHED PATIENT [facility]LY [facility] CHARGE DISPOSITION & COMMUNICATION FOLLOW UP 2 MONTHS (REASON: LOW BACK PAIN, LUMBAR SPINE MRI WITH CONTRAST) ELECTRONICALLY SIGNED BY KATARINA CONDE ON 07/08/2020 AT 02:12 PM EST DISCLAIMER : THIS IS A VISIT SUMMARY EXTRACTED FROM THE [employer] CHART. IT IS NOT A COPY OF THE [employer] PROGRESS NOTE. DARREN
== END ==
LOC: M PAIN 13:00
PROVIDERS: ATTEND Family Medicine
DX: M54.5 Low back pain (principal); E11.40 Type 2 diabetes mellitus with diabetic neuropathy, unspecified; M79.7 Fibromyalgia; G47.33 Obstructive sleep apnea (adult) (pediatric); D50.0 Iron deficiency anemia secondary to blood loss (chronic); E03.9 Hypothyroidism, unspecified; Z86.59 Personal history of other mental and behavioral disorders; Z96.653 Presence of artificial knee joint, bilateral; Z88.2 Allergy status to sulfonamides; Z91.013 Allergy to seafood; Z79.84 Long term (current) use of oral hypoglycemic drugs; Z79.899 Other long term (current) drug therapy
CPT/HCPCS: 36415; 80053; 80061; 82728; 83036; 83550; 84439; 84443; 85027; G0463

== ENCOUNTER → 2020-07-07 | Outpatient (REF) | payer MEDICARE ==
[2020-07-07 18:04] LABS: HEMATOCRIT 45.2 % (36.0-47.0); HEMOGLOBIN 13.8 g/dl (12.0-15.5); MEAN CORPUSCULAR HEMOGLOBIN 28.4 pg (27.0-33.0); MEAN CORPUSCULAR HGB CONC 30.5 g/dl (32.0-36.5); PLATELET COUNT, AUTOMATED 274 10^3/uL (150-450); RED BLOOD COUNT 4.86 10^6/uL (4.00-5.40); WHITE BLOOD COUNT 10.7 10^3/uL (4.0-10.0)
[2020-07-07 18:12] LABS: HEMOGLOBIN A1c 6.5 %
[2020-07-07 18:16] LABS: ALBUMIN 3.9 GM/DL (3.2-5.2); BILIRUBIN,TOTAL 0.4 MG/DL (0.2-1.0); CALCIUM LEVEL 9.7 MG/DL (8.8-10.2); CHOLESTEROL RISK RATIO 3.509 (<5); CREATININE FOR GFR 0.97 MG/DL (0.55-1.30); FREE T4 1.24 NG/DL (0.76-1.46); GLOMERULAR FILTRATION RATE 59.3 (>39); PERCENT SATURATION 7.6 % (13.2-45.0); POTASSIUM SERUM 4.1 MEQ/L (3.5-5.1); THYROID STIMULATING HORMONE 1.75 uIU/ML (0.358-3.740); TOTAL PROTEIN 7.4 GM/DL (6.4-8.2)
== END ==
LOC: M PLALAB 15:20
PROVIDERS: ATTEND Family Medicine
DX: D50.0 Iron deficiency anemia secondary to blood loss (chronic) (principal); E11.40 Type 2 diabetes mellitus with diabetic neuropathy, unspecified; E03.9 Hypothyroidism, unspecified

== ENCOUNTER → 2020-07-21 | Outpatient (CLI) | payer MEDICARE ==
[~2020-07-21] MED LIST changes: +PROHANCE 279.3MG/ML 5ML VIAL As Ordered ONE
--- NOTE | 2020-07-21 14:48 | REPVR ---
PROCEDURE INFORMATION: Exam: MR Lumbar Spine Without and With Contrast. Exam date and time: 07/21/2020 2:30 PM Age: 79 years old Clinical indication: Low back pain; Additional info: Lbp TECHNIQUE: Imaging protocol: Multiplanar magnetic resonance images of the lumbar spine without and with intravenous contrast. Contrast material: PROHANCE; Contrast volume: 8 ml; Contrast route: INTRAVENOUS (IV); COMPARISON: DX SPINE LS COMPLETE 04/23/2020 9:57 AM FINDINGS: Vertebrae: Unremarkable. Spinal cord: Normal signal. No cord compression. T10-T11: There is disc space narrowing and desiccation. There are moderate degenerative end plate changes at this level. There is a moderate disc/osteophyte complex that flattens the ventral thecal sac. L1-L2: There is disc desiccation. There is facet arthropathy and ligamentum flavum hypertrophy. L2-L3: There is disc desiccation. There is mild disc bulging. There is exuberant bilateral facet arthropathy and ligamentum flavum hypertrophy. There is mild spinal canal stenosis. L3-L4: There is grade 1/2 anterior spondylolisthesis at L3/4. There is disc space narrowing and desiccation. There are moderate degenerative end plate changes at this level. There is a moderate central disc protrusion. There is severe bilateral neural foraminal narrowing. There is facet arthropathy and ligamentum flavum hypertrophy. There is compromise of the lateral recesses bilaterally. There is moderate/severe transverse spinal canal stenosis. L4-L5: Patient is status post lumbar fusion at L4-L5. Surgical hardware causes moderate magnetic susceptibility artifact which limits evaluation of the surrounding anatomy. There is grade 1 anterior spondylolisthesis at L4/5. There is disc space narrowing. There is high signal abnormality within the disc space on the inversion recovery sequence. While this is likely degenerative, an early disc space infection could have this appearance. There are moderate degenerative end plate changes at this level. There is severe bilateral neural foraminal narrowing. There is exuberant bilateral facet arthropathy and ligamentum flavum hypertrophy. There is severe spinal canal stenosis. L5-S1: There is grade 1 anterior spondylolisthesis at L5/S1. There is disc space narrowing and desiccation. There are moderate degenerative end plate changes at this level. There is a moderate disc bulge with a moderate superimposed broad-based central disc herniation that extends into both neural foramen and causes severe bilateral neural foraminal narrowing. There is a large anterior disc herniation. There has been a posterior decompression at this level. There is a retroaortic left renal vein. IMPRESSION: 1. Patient is status post lumbar fusion at L4-L5. Surgical hardware causes moderate magnetic susceptibility artifact which limits evaluation of the surrounding anatomy. Please correlate with surgical history. 2. Advanced multilevel degenerative changes causing variable degrees of spinal canal and neuroforaminal narrowing as described above. There is severe spinal canal stenosis at L4/5 and moderate/severe stenosis at L3/4. Please correlate with any symptoms referrable to cauda equina syndrome. Neurosurgical consultation is recommended. 3. High signal abnormality within the L4/5 disc space as seen on the inversion recovery sequence. While this is likely degenerative, an early disc space infection could have a similar appearance. Please correlate clinically. Electronically signed by: Ulysses Miller On 07/21/2020 14:47:51 PM
== END ==
LOC: M RAD 13:03
PROVIDERS: ATTEND Family Medicine
DX: M51.34 Other intervertebral disc degeneration, thoracic region (principal); M51.36 Other intervertebral disc degeneration, lumbar region; M51.37 Other intervertebral disc degeneration, lumbosacral region; Z98.1 Arthrodesis status; M43.17 Spondylolisthesis, lumbosacral region
CPT/HCPCS: 72158; A9576

== ENCOUNTER → 2020-09-04 | Outpatient (CLI) | payer MEDICARE ==
[~2020-09-04] MED LIST changes: -PROHANCE 279.3MG/ML 5ML VIAL As Ordered ONE
--- NOTE | 2020-09-09 06:34 | ECWPNPC ---
PATIENT NAME: ROWAN FATIMA : 1940 GENDER: FEMALE VISIT DATE: 09/04/2020 DISCHARGE DATE: 09/04/20 1431 VISIT LOCKED DATE TIME: PHYSICIAN: LISY BIRD PHYSICIAN PAGER NO: ACTIVE RESOURCE: LISY BIRD REASON FOR APPOINTMENT 1. BACK/REVIEW MRI HISTORY OF PRESENT ILLNESS GENERAL: - 79-YEAR-OLD FEMALE IN FOR CHRONIC PAIN FOLLOW-UP. AT LAST CLINIC VISIT PATIENT WAS STARTED ON TRAMADOL AND SHE ADMITS TODAY THAT THIS WAS NOT BENEFICIAL. AN ORDER WAS PLACED FOR AN MRI AT LAST CLINIC VISIT AND SHE HAS COMPLETED THIS AND WILL BE REVIEWED WITH PATIENT TODAY. SHE RATES HER PAIN AT A 7 OUT OF 10 AND DESCRIBES IT CONTINUOUS AND DULL. FALL RISK SCREENING: SCREENING ONE FALL REPORTED IN THE LAST YEAR. PATIENT SOUGHT MEDICAL TREATMENT VIA AMBULANCE.. PAIN SCREENING: PATIENT HAS A COMPLAINT OF ACUTE OR CHRONIC PAIN :YES LOCATION OF PAIN:LOW BACK, LEFT HIP, RIGHT HIP, LEG(S) INTENSITY OF PAIN (SCALE OF 1 TO 10):7 WHAT DOES YOUR PAIN FEEL LIKE:CONTINOUS, OTHER DULL DURATION:CONTINOUS, CONSTANT, AWAKENS FROM SLEEP PAIN IS INCREASED BY:ACTIVITIES, PROLONGED STANDING PAIN IS DECREASED BY:USE OF PAIN MEDICATIONS NURSING NOTE: -. PAIN CENTER INTAKE QUESTIONS: DO YOU HAVE A HISTORY OF MRSA? :NO DO YOU TAKE A BLOOD THINNERS? :NO DO YOU HAVE ANY BLEEDING DISORDERS? :NO ANY NEW NUMBNESS OR WEAKNESS IN YOUR LEGS OR ARMS? :YES HAND NUMBNESS ANY PACEMAKER,DEFIBRILLATOR, OR DORSAL COLUMN STIMULATOR? :NO DO YOU HAVE ANY RASHES OR OPEN SORES? :NO ARE YOU ALLERGIC TO IV DYE? :NO ARE YOU DIABETIC? :YES TYPE II ANY NEW PROBLEMS WITH YOUR MEDICATIONS? :NO HAVE YOU RECEIVED A VACCINE IN THE PAST 30 DAYS? :YES IF SO WHAT VACCINE AND WHEN? SECOND COVID VACCINATION GIVEN 08/18/20 DO YOU PLAN TO RECEIVE A VACCINE IN THE NEXT 21 DAYS? :NO DO YOU NEED ANY PRESCRIPTION? :NO DO YOU TAKE ANY IMMUNOSUPPRESSIVE MEDICATIONS? :NO DO YOU HAVE ANY KIDNEY OR LIVER DISEASE? :YES DOCTOR IS MONITORING KIDNEY FUNCTION. IS THERE A CHANCE YOU COULD BE ? :NO ARE YOU BREAST FEEDING? :NO CURRENT MEDICATIONS TAKING METFORMIN HCL 500 MG TABLET 1 TABLET WITH A MEAL ORALLY BID TAKING LYRICA 100 MG CAPSULE 1 CAPSULE ORALLY TWICE A DAY TAKING ACETAMINOPHEN 650 MG TABLET 2 TABLET NEEDED ORALLY EVERY 6 HRS TAKING CALCIUM-VITAMIN D 500-400 MG-UNIT TABLET 2 TAB ORALLY DAILY TAKING ARTIFICIAL TEARS 1-0.3 % SOLUTION 1 GTT IN EACH EYE OPHTHALMIC FOUR TIMES DAILY NEEDED TAKING FERROUS GLUCONATE 324 (38 FE) MG TABLET 1 TABLET WITH WATER OR JUICE BETWEEN MEALS ORALLY BID TAKING DULOXETINE HCL 60 MG CAPSULE DELAYED RELEASE PARTICLES 1 CAP ORALLY DAILY TAKING PANTOPRAZOLE SODIUM 40 MG TABLET DELAYED RELEASE 1 TABLET ORALLY ONCE A DAY TAKING LOSARTAN POTASSIUM 50 MG TABLET 1 TABLET ORALLY ONCE A DAY TAKING AMLODIPINE BESYLATE 2.5 MG TABLET 1 TABLET ORALLY ONCE A DAY TAKING TRAMADOL HCL 50 MG TABLET 1 TABLET NEEDED ORALLY TWICE DAILY PRN PAIN, NOTES: FROM PAIN CLINIC TAKING FUROSEMIDE 40 MG TABLET TAKE ONE TABLET BY MOUTH EVERY DAY ORAL TAKING METOPROLOL SUCCINATE ER 25 MG TABLET EXTENDED RELEASE 24 HOUR 1 TABLET ORALLY BID TAKING EPIPEN 2-ROBERTO 0.3 MG/0.3ML SOLUTION AUTO-INJECTOR DIRECTED INJECTION DIRECTED TAKING CARPAL TUNNEL WRIST STABILIZER - MISCELLANEOUS G56.03 _ BEFORE BEDTIME MEDICATION LIST REVIEWED AND RECONCILED WITH THE PATIENT PAST MEDICAL HISTORY HTN WELL CONTROLLED TYPE 2 DIABETES FIBROMYALGOA ARTHRITIS DIASTOLIC HEART FAILURE/LVH-- EF 65%, SEES [facility]/DR EMERSON DEPRESSION HX OF VIRAL MENGITIS ECHO 10/13: EF 65%, MILD (MEAN GRADIENT 19 MM), MILD AR; CONCENTRIC LVH INCONTINENCE HIATAL HERNIA AND CHRONIC GASTRITIS--CT 11/12 LARGE HH; EGD 01/12 SHOWED 2 ABI ULCERS (IRON DEFIC ANEMIA) RACHEL-- DOESN'T TOLERATE CPAP IRON DEFIC ANEMIA--IRON INFUSION IN [place] 2017; EGD/COLO 01/12 (ABI ULCERS) SUBCLINICAL HYPOTHYROIDISM 01/12 CHRONIC LOW BACK PAIN--DDD/DJD ALLERGIES SULFA (FOR ALLERGY USE ONLY): HIVES - ALLERGY SHELLFISH: ANAPHYLAXIS - ALLERGY SOCIAL HISTORY GENERAL: TOBACCO USE ARE YOU A:NONSMOKER LATEX QUESTIONNAIRE LATEX ALLERGY : HAVE YOU EVER DEVELOPED ANY TYPE OF REACTION AFTER HANDLING LATEX PRODUCTS SUCH RUBBER GLOVES, CONDOMS, DIAPHRAGMS, BALLOONS, SOCKS, OR UNDERWEAR?NO LATEX ALLERGY : HAVE YOU EVER DEVELOPED ANY TYPE OF REACTION DURING OR AFTER DENTAL APPOINTMENT, VAGINAL/RECTAL EXAMINATION, SURGICAL PROCEDURE, OR ANY OTHER EXPOSURE?NO LATEX RISK : HAVE YOU EVER HAD ANY DIFFICULTY BREATHING OR HIVES AFTER EATING OR HANDLING ANY FRUITS, OR VEGETABLES; SUCH KIWI, BANANAS, STONE FRUITS, OR CHESTNUTSNO LATEX RISK : DO YOU HAVE A PREVIOUS PERSONAL HISTORY OF MORE THAN NINE SURGERIES, SPINA BIFIDA, OR REPEATED CATHERIZATIONS? NO LATEX RISK : ARE YOU FREQUENTLY EXPOSED TO LATEX PRODUCTS IN YOUR OCCUPATION?NO DATE ASKED : 09/04/2020 ALCOHOL USE: NO. LUNG CANCER SCREENING SMOKING STATUS:NON SMOKER BMI CARE GOAL FOLLOW-UP ABOVE NORMAL BMI FOLLOW-UPDIETARY MANAGEMENT EDUCATION, GUIDANCE, AND COUNSELING ALCOHOL SCREENING DID YOU HAVE A DRINK CONTAINING ALCOHOL IN THE PAST YEAR?NO POINTS0 INTERPRETATIONNEGATIVE RECREATIONAL DRUG USE DRUG USE?NO CAFFEINE CAFFEINE USE?YES 2 DIET SODAS A WEEK SEXUAL HX HAD SEX IN THE LAST 12 MONTHS (VAGINAL, ORAL, OR ANAL)?NO HAVE YOU EVER HAD AN STD?NO HIV / HEP-C SCREENING HIV TEST OFFERED TO PATIENT:YES DATE OFFERED:07/26/2018 TEST ACCEPTED:NO HEP-C TEST OFFERED TO PATIENT:YES DATE OFFERED:07/26/2018 REASON:PATIENT DECLINED TEST ACCEPTED:NO REASON:PATIENT DECLINED BROCHURE PROVIDED TO PATIENTNO BUDDHIST [id number] NONE LANGUAGE LANGUAGES SPOKEN:ESTONIAN EDUCATION SOME COLLEGE. LEARNING BARRIERS / SPECIAL NEEDS CHANGE FROM LAST VISIT?YES BARRIERS TO LEARNING?NO HEARING IMPAIRED?YES HEARING AID VISION IMPAIRED?YES :CORRECTIVE LENSES FOR DRIVING COGNITIVELY IMPAIRED?NO READINESS TO LEARN?YES LEARNING PREFERENCES?NO LEARNING CAPABILITIES PRESENT?YES EMOTIONAL BARRIERS?NO SPECIAL DEVICES?YES :CANE, WALKER, BRACE PELT SALTER NEEDED?NO DOMESTIC VIOLENCE DO YOU FEEL SAFE IN YOUR ENVIRONMENT?YES OCCUPATION: RETIRED. DIET: REGULAR. EXERCISE: NO REGULAR EXERCISE. MARITAL STATUS: . OTHERS AT HOME: NONE. - HAS THE PATIENT BEEN EDUCATED REGARDING HIS/HER PLAN OF CARE?YES HAS THE PATIENT BEEN EDUCATED REGARDING PAIN, THE RISK FOR PAIN, THE IMPORTANCE OF EFFECTIVE PAIN MANAGEMENT, AND THE PAIN ASSESSMENT PROCESS?YES ADVANCE DIRECTIVE ADVANCE DIRECTIVE DISCUSSED WITH PATIENT: NO ADVANCED CARE DIRECTIVES AT THIS TIME. PATIENT GIVEN HCP INFORMATION AND VERBALIZED UNDERSTANDING. WILL TAKE HOME TO REVIEW. 07/07/20 REVIEW OF SYSTEMS CONSTITUTIONAL: ANY RECENT FEVER NO . CHILLS NO . WEIGHT CHANGE OF UNKNOWN REASONS NO . GASTROENTEROLOGY: NEW UNEXPLAINABLE CHANGES IN BOWEL CONTROL NO . CONSTIPATION NO . GENITOURINARY: ANY NEW CHANGE IN BLADDER CONTROL? NO . NEUROLOGY: NEW ONSET DIZZINESS OR NEUROLOGICAL CHANGES NOT MENTIONED NO . NEW NUMBNESS OR PAIN PATTERNS NOT MENTIONED AND PERTINENT TO TODAY'S VISIT NO . CARDIOLOGY: NEW CHEST PRESSURE NO . PATIENT DENIES NO . RESPIRATORY: UNEXPLAINABLE COUGH NO . NEW SHORTNESS OF BREATH NO . VITAL SIGNS WT 206.0 LBS, HT 63 IN, BMI 36.49 INDEX, BP 158/92 MM HG, HR 105 /MIN, RR 18 /MIN, TEMP 97.0 F, OXYGEN SAT % 94%, SAFE IN ENV? (Y/N) YES, NA INITIALS AW 1352, REVIEWED BY: ELIEZER EUCEDA MA. EXAMINATION GENERAL EXAMINATION: GENERALNO ACUTE DISTRESS, WELL NOURISHED AND HYDRATED. PSYCHAPPROPRIATE MOOD AND AFFECT . LUNGS:CLEAR TO AUSCULTATION BILATERALLY, NO WHEEZES, RHONCHI, RALES. HEART:HEART RATE REGULAR, MURMUR NOTED . ASSESSMENTS INTERVERTEBRAL DISC DISORDERS WITH RADICULOPATHY, LUMBOSACRAL REGION - M51.17 (PRIMARY) TREATMENT INTERVERTEBRAL DISC DISORDERS WITH RADICULOPATHY, LUMBOSACRAL REGION STOP TRAMADOL HCL TABLET, 50 MG, 1 TABLET NEEDED, ORALLY, TWICE DAILY PRN PAIN, NOTES: FROM PAIN CLINIC START HYDROCODONE-ACETAMINOPHEN TABLET, 5-325 MG, 1 TABLET NEEDED, ORALLY, EVERY 12 HRS PRN PAIN, 30 DAYS, 60 NOTES: 79-YEAR-OLD FEMALE IN FOR CHRONIC PAIN FOLLOW-UP. MRI WAS REVIEWED WITH PATIENT TODAY AND GIVEN RESULTS OF MRI PATIENT WILL BE REFERRED TO NEUROLOGY FOR FURTHER EVALUATION. WE'LL START NORCO 5/325 MG TWICE A DAY NEEDED FOR PAIN WITH FOLLOW-UP IN 2 MONTHS. PATIENT HAS EXPRESSED UNDERSTANDING OF AND WAS IN AGREEMENT WITH TREATMENT PLAN. GIVEN TIME TO ASK QUESTIONS AND EXPRESS CONCERNS. , ISTOP REGISTRY REVIEWED AND DEMONSTRATES COMPLLIANCE. (REF # [id number] ) BRINGS IN MEDICATIONS WHICH IS APPROPRIATE FOR WHAT WAS DISPENSED. RECENT URINE TOXICOLOGY REVIEWED. NO UNAUTHORIZED MEDICATIONS. NO ILLICIT SUBSTANCES AND PRESCRIBED MEDICATIONS WERE PRESENT. REFERRAL TO:[facility] ([facility])NEUROLOGICAL SURGERY REASON:CONSULT REGARDING RESULTS OF MRI PROCEDURE CODES FA211 ESTABILISHED PATIENT [facility] FACILITY CHARGE DISPOSITION & COMMUNICATION FOLLOW UP 2 MONTHS (REASON: BACK PAIN) ELECTRONICALLY SIGNED BY KATARINA CONDE ON 09/08/2020 AT 08:32 AM EDT DISCLAIMER : THIS IS A VISIT SUMMARY EXTRACTED FROM THE [employer] CHART. IT IS NOT A COPY OF THE [facility] PROGRESS NOTE. MTDD
== END ==
LOC: M PAIN 13:45
PROVIDERS: ATTEND Family Medicine
DX: M51.17 Intervertebral disc disorders with radiculopathy, lumbosacral region (principal); I11.0 Hypertensive heart disease with heart failure; M79.7 Fibromyalgia; I50.32 Chronic diastolic (congestive) heart failure; F32.9 Major depressive disorder, single episode, unspecified; G47.33 Obstructive sleep apnea (adult) (pediatric); N18.2 Chronic kidney disease, stage 2 (mild); E11.22 Type 2 diabetes mellitus with diabetic chronic kidney disease; D50.9 Iron deficiency anemia, unspecified; E02 Subclinical iodine-deficiency hypothyroidism; K44.9 Diaphragmatic hernia without obstruction or gangrene; Z79.84 Long term (current) use of oral hypoglycemic drugs; Z79.899 Other long term (current) drug therapy; Z88.2 Allergy status to sulfonamides; Z91.030 Bee allergy status

== ENCOUNTER → 2020-10-04 | Outpatient (CLI) | payer MEDICARE ==
--- NOTE | 2020-10-05 16:50 | SLEEPCENT ---
NOCTURNAL POLYSOMNOGRAPHY DATE: 10/04/2020 ORDERED BY: Wilfred Engle M.D. Nocturnal polysomnography was performed for reevaluation of sleep physiology in this patient with a prior history of obstructive sleep apnea syndrome. 7 hours and 47 minutes of data were reviewed. There were 384.5 minutes of sleep identified. Sleep latency was short at 15 minutes. REM sleep was not achieved. Overall sleep architecture showed fragmentation and poor progression. Overall sleep efficiency was 83.4%. No REM sleep and no N3 sleep were identified. The electrocardiogram showed a sinus rhythm with an average heart rate of 80 beats per minute; rate range 60 to 100. EEG showed reasonably normal waveforms for wake and sleep. There were 252 respiratory events identified of 10 seconds in duration or greater for an apnea-hypopnea index of 39.3. The events were primarily obstructive, not exclusive to sleep stage nor posture. Arousals from respiratory events occurred 14.8 times per hour and oxygen desaturations were seen into the low 80s. There was some limb activity noted in the EMG leads throughout. The limb movement arousal index was 7.2. IMPRESSION: Obstructive sleep apnea syndrome (G47.33), apnea-hypopnea index 39.3. RECOMMENDATION: The patient should be encouraged to return to the [facility] for [facility]. In the interim, alcohol and sedative avoidance should be practiced and caution exercised during the operation of motor vehicles.
== END ==
LOC: M SLEEP 20:00
PROVIDERS: ATTEND Nurse Practitioner Adult Health
DX: G47.33 Obstructive sleep apnea (adult) (pediatric) (principal)

== ENCOUNTER → 2020-10-16 | Outpatient (CLI) | payer MEDICARE ==
[2020-10-16 15:43] LABS: BASO # 0.1 10^3/uL (0.0-0.2); BASO % 0.9 % (0.0-1.0); EOS # 0.2 10^3/uL (0.0-0.5); EOS % 3.7 % (0.0-3.0); HEMATOCRIT 43.3 % (36.0-47.0); HEMOGLOBIN 13.6 g/dl (12.0-15.5); LYMPH # 1.8 10^3/uL (1.5-5.0); LYMPH % 32.7 % (24.0-44.0); MEAN CORPUSCULAR HEMOGLOBIN 28.2 pg (27.0-33.0); MEAN CORPUSCULAR HGB CONC 31.4 g/dl (32.0-36.5); MEAN CORPUSCULAR VOLUME 89.8 fl (80.0-96.0); MONO # 0.6 10^3/uL (0.0-0.8); MONO % 11.3 % (2.0-8.0); NEUTROPHILS # 2.8 10^3/uL (1.5-8.5); NEUTROPHILS % 51.2 % (36.0-66.0); PLATELET COUNT, AUTOMATED 211 10^3/uL (150-450); RED BLOOD COUNT 4.82 10^6/uL (4.00-5.40); WHITE BLOOD COUNT 5.4 10^3/uL (4.0-10.0)
[2020-10-16 16:05] LABS: ERYTHROCYTE SEDIMENTATION RATE 12 mm/hr (0-30)
[2020-10-16 16:07] LABS: HEMOGLOBIN A1c 7.1 %
[2020-10-16 16:28] LABS: ALT/SGPT 30 U/L (12-78); BILIRUBIN,TOTAL 0.3 MG/DL (0.2-1.0); BLOOD UREA NITROGEN 19 MG/DL (7-18); CALCIUM LEVEL 10.3 MG/DL (8.8-10.2); CARBON DIOXIDE LEVEL 26 MEQ/L (21-32); CHLORIDE LEVEL 106 MEQ/L (98-107); CREATININE FOR GFR 0.76 MG/DL (0.55-1.30); GLOMERULAR FILTRATION RATE > 60.0 (>39); GLUCOSE, FASTING 145 MG/DL (70-100); POTASSIUM SERUM 3.9 MEQ/L (3.5-5.1); RHEUMATOID FACTOR QUANT < 10.0 IU/ML (<15.0); SODIUM LEVEL 139 MEQ/L (136-145); TOTAL PROTEIN 7.2 GM/DL (6.4-8.2)
[2020-10-19 10:00] LABS: ALBUMIN 4.37 GM/DL (3.29-5.55); ALBUMIN % 60.7 % (55.8-66.1); ALPHA-1-GLOBULIN % 4.4 % (2.9-4.9); ALPHA-1-GLOBULINS 0.32 GM/DL (0.17-0.41); ALPHA-2-GLOBULINS 0.78 GM/DL (0.42-0.99); ALPHA-2-GLOBULINS % 10.8 % (7.1-11.8); BETA-1-GLOBULINS 0.48 GM/DL (0.28-0.60); BETA-1-GLOBULINS % 6.6 % (4.7-7.2); BETA-2-GLOBULINS % 5.5 % (3.2-6.5); GAMMA GLOBULINS 0.86 GM/DL (0.65-1.58)
== END ==
LOC: M PLALAB 13:35
PROVIDERS: ATTEND Psychiatry & Neurology Neurology
DX: G62.9 Polyneuropathy, unspecified (principal); Z79.899 Other long term (current) drug therapy

== ENCOUNTER → 2020-10-28 | Outpatient (CLI) | payer MEDICARE ==
--- NOTE | 2020-10-29 16:32 | SLEEPCENT ---
DATE: 10/28/2020 ORDERED BY: Elisha Acevedo Nocturnal polysomnography was performed for the titration of pressure therapy in this patient with severe obstructive sleep apnea syndrome, apnea-hypopnea index 39.4. For testing, a ResMed F30 full-face mask of small size was used. There was 4 cm of water pressure applied to the circuit, and the lights were extinguished. There was 8 hours and 19 (cut off) were reviewed. There was 393.5 minutes of sleep identified. Sleep latency was normal at 37 minutes. REM sleep was not achieved. Overall sleep architecture showed poor progression. There was a prolonged period of wake between 1 and 4 a.m. resulting in a reduced sleep efficiency of 44.8%. The electrocardiogram showed sinus rhythm with frequent premature beats. Average heart rate 64 beats per minute. EEG showed some coarsening in background, otherwise normal waveforms for wake and sleep. Respiratory events were fully palliated with CPAP at a pressure of 9. There was significant activity in the limb leads. Limb movement arousal index was 32.0, increased significantly from the diagnostic night. IMPRESSION: 1. Obstructive sleep apnea syndrome (G47.33). 2. Possible periodic limb movement disorder (G47.61). Limb movement arousal index 32. RECOMMENDATION: CPAP at a pressure of 9 cm was sufficient to overcome respiratory events seen during this study; however, it should be noted that the patient did not experience REM sleep. Close clinical followup is recommended, and, should sleep symptoms persist, interventions to reduce the frequency of arousal from limb activity may be considered.
== END ==
LOC: M SLEEP 20:00
PROVIDERS: ATTEND Nurse Practitioner Adult Health
DX: G47.33 Obstructive sleep apnea (adult) (pediatric) (principal); G47.61 Periodic limb movement disorder

== ENCOUNTER → 2020-12-08 | Outpatient (REF) | payer MEDICARE ==
[2020-12-08 15:45] LABS: HEMATOCRIT 42.2 % (36.0-47.0); HEMOGLOBIN 13.1 g/dl (12.0-15.5); MEAN CORPUSCULAR HEMOGLOBIN 28.9 pg (27.0-33.0); MEAN CORPUSCULAR VOLUME 93.2 fl (80.0-96.0); PLATELET COUNT, AUTOMATED 221 10^3/uL (150-450); RED BLOOD COUNT 4.53 10^6/uL (4.00-5.40)
[2020-12-08 16:54] LABS: ALBUMIN 3.8 GM/DL (3.2-5.2); ALT/SGPT 33 U/L (12-78); BILIRUBIN,TOTAL 0.3 MG/DL (0.2-1.0); BLOOD UREA NITROGEN 25 MG/DL (7-18); CALCIUM LEVEL 9.8 MG/DL (8.8-10.2); CARBON DIOXIDE LEVEL 27 MEQ/L (21-32); CHLORIDE LEVEL 108 MEQ/L (98-107); CREATININE FOR GFR 0.69 MG/DL (0.55-1.30); FERRITIN 20 NG/ML (8-252); FREE T4 1.14 NG/DL (0.76-1.46); GLOMERULAR FILTRATION RATE > 60.0 (>39); GLUCOSE, FASTING 129 MG/DL (70-100); IRON (FE) 82 UG/DL (50-170); PERCENT SATURATION 18.5 % (13.2-45.0); POTASSIUM SERUM 4.3 MEQ/L (3.5-5.1); SODIUM LEVEL 140 MEQ/L (136-145); TOTAL IRON BINDING CAPACITY 443 UG/DL (250-450)
[2020-12-08 18:38] LABS: HEMOGLOBIN A1c 6.6 %
== END ==
LOC: M SFHCADAM 12:19
PROVIDERS: ATTEND Family Medicine
DX: E11.40 Type 2 diabetes mellitus with diabetic neuropathy, unspecified (principal); D50.0 Iron deficiency anemia secondary to blood loss (chronic); K25.7 Chronic gastric ulcer without hemorrhage or perforation; E03.9 Hypothyroidism, unspecified

== ENCOUNTER → 2020-12-17 | Outpatient (CLI) | payer MEDICARE ==
--- NOTE | 2020-12-19 04:35 | ECWPNPC ---
PATIENT NAME: ROWAN FATIMA : 1940 GENDER: FEMALE VISIT DATE: 12/17/2020 DISCHARGE DATE: 12/17/20 1353 VISIT LOCKED DATE TIME: PHYSICIAN: LISY BIRD PHYSICIAN PAGER NO: ACTIVE RESOURCE: LISY BIRD REASON FOR APPOINTMENT 1. BACK PAIN HISTORY OF PRESENT ILLNESS GENERAL: HPI 80-YEAR-OLD FEMALE IN FOR CHRONIC PAIN FOLLOW-UP. SHE RATES HER PAIN CURRENTLY AT A 5 OUT OF 10 BUT DOES ADMIT THAT HE GETS UP TO A 10 OUT OF 10 AT TIMES. DOES ADMIT TO TAKING TABLETS 3 TIMES A DAY WHEN SHE EXPERIENCED INCREASED PAIN.. -. FALL RISK SCREENING: SCREENING TWO FALLS REPORTED IN THE LAST YEAR WITHOUT INJURY.. PAIN SCREENING: PATIENT HAS A COMPLAINT OF ACUTE OR CHRONIC PAIN :YES LOCATION OF PAIN:BACK INTENSITY OF PAIN (SCALE OF 1 TO 10):5 GETS HIGH A 10. WHAT DOES YOUR PAIN FEEL LIKE:ACHING, CONTINOUS DURATION:CONTINOUS, CONSTANT, AWAKENS FROM SLEEP PAIN IS INCREASED BY:ACTIVITIES, PROLONGED STANDING PAIN IS DECREASED BY:USE OF PAIN MEDICATIONS, SITTING NURSING NOTE: -. PAIN CENTER INTAKE QUESTIONS: DO YOU HAVE A HISTORY OF MRSA? :NO DO YOU TAKE A BLOOD THINNERS? :NO DO YOU HAVE ANY BLEEDING DISORDERS? :NO ANY NEW NUMBNESS OR WEAKNESS IN YOUR LEGS OR ARMS? :YES HAND NUMBNESS ANY PACEMAKER,DEFIBRILLATOR, OR DORSAL COLUMN STIMULATOR? :NO DO YOU HAVE ANY RASHES OR OPEN SORES? :NO ARE YOU ALLERGIC TO IV DYE? :NO ARE YOU DIABETIC? :YES TYPE II ANY NEW PROBLEMS WITH YOUR MEDICATIONS? :NO HAVE YOU RECEIVED A VACCINE IN THE PAST 30 DAYS? :NO SECOND COVID VACCINATION 08/18/2020 DO YOU PLAN TO RECEIVE A VACCINE IN THE NEXT 21 DAYS? :NO DO YOU NEED ANY PRESCRIPTION? :NO DO YOU TAKE ANY IMMUNOSUPPRESSIVE MEDICATIONS? :NO DO YOU HAVE ANY KIDNEY OR LIVER DISEASE? :YES DOCTOR IS MONITORING KIDNEY FUNCTION. IS THERE A CHANCE YOU COULD BE ? :NO ARE YOU BREAST FEEDING? :NO CURRENT MEDICATIONS TAKING METFORMIN HCL 500 MG TABLET 1 TABLET WITH A MEAL ORALLY BID TAKING ACETAMINOPHEN 650 MG TABLET 2 TABLET NEEDED ORALLY EVERY 6 HRS TAKING CALCIUM-VITAMIN D 500-400 MG-UNIT TABLET 2 TAB ORALLY DAILY TAKING ARTIFICIAL TEARS 1-0.3 % SOLUTION 1 GTT IN EACH EYE OPHTHALMIC FOUR TIMES DAILY NEEDED TAKING FERROUS GLUCONATE 324 (38 FE) MG TABLET 1 TABLET WITH WATER OR JUICE BETWEEN MEALS ORALLY BID TAKING DULOXETINE HCL 60 MG CAPSULE DELAYED RELEASE PARTICLES 1 CAP ORALLY DAILY TAKING PANTOPRAZOLE SODIUM 40 MG TABLET DELAYED RELEASE 1 TABLET ORALLY ONCE A DAY TAKING LOSARTAN POTASSIUM 50 MG TABLET 1 TABLET ORALLY ONCE A DAY TAKING FUROSEMIDE 40 MG TABLET TAKE ONE TABLET BY MOUTH EVERY DAY ORAL TAKING METOPROLOL SUCCINATE ER 25 MG TABLET EXTENDED RELEASE 24 HOUR 1 TABLET ORALLY BID TAKING EPIPEN 2-ROBERTO 0.3 MG/0.3ML SOLUTION AUTO-INJECTOR DIRECTED INJECTION DIRECTED TAKING CARPAL TUNNEL WRIST STABILIZER - MISCELLANEOUS G56.03 _ BEFORE BEDTIME TAKING AMLODIPINE BESYLATE 2.5 MG TABLET 1 TABLET ORALLY ONCE A DAY TAKING LYRICA 100 MG CAPSULE 1 CAPSULE ORALLY TWICE A DAY TAKING HYDROCODONE-ACETAMINOPHEN 5-325 MG TABLET 1 TABLET NEEDED ORALLY EVERY 12 HRS PRN PAIN MEDICATION LIST REVIEWED AND RECONCILED WITH THE PATIENT PAST MEDICAL HISTORY HTN WELL CONTROLLED TYPE 2 DIABETES FIBROMYALGOA ARTHRITIS DIASTOLIC HEART FAILURE/LVH-- EF 65%, SEES [facility]/DR EMERSON DEPRESSION HX OF VIRAL MENGITIS ECHO 10/13: EF 65%, MILD (MEAN GRADIENT 19 MM), MILD AR; CONCENTRIC LVH INCONTINENCE HIATAL HERNIA AND CHRONIC GASTRITIS--CT 11/12 LARGE HH; EGD 01/12 SHOWED 2 ABI ULCERS (IRON DEFIC ANEMIA) RACHEL-- DOESN'T TOLERATE CPAP IRON DEFIC ANEMIA--IRON INFUSION IN [place] 2017; EGD/COLO 01/12 (ABI ULCERS) SUBCLINICAL HYPOTHYROIDISM 01/12 CHRONIC LOW BACK PAIN--DDD/DJD SEVERE SPINAL STENOSIS JUAN JOSÉ L4-L5, MRI 07/16 ALLERGIES SULFA (FOR ALLERGY USE ONLY): HIVES - ALLERGY SHELLFISH: ANAPHYLAXIS - ALLERGY SOCIAL HISTORY GENERAL: TOBACCO USE ARE YOU A:NONSMOKER LATEX QUESTIONNAIRE LATEX ALLERGY : HAVE YOU EVER DEVELOPED ANY TYPE OF REACTION AFTER HANDLING LATEX PRODUCTS SUCH RUBBER GLOVES, CONDOMS, DIAPHRAGMS, BALLOONS, SOCKS, OR UNDERWEAR?NO LATEX ALLERGY : HAVE YOU EVER DEVELOPED ANY TYPE OF REACTION DURING OR AFTER DENTAL APPOINTMENT, VAGINAL/RECTAL EXAMINATION, SURGICAL PROCEDURE, OR ANY OTHER EXPOSURE?NO LATEX RISK : HAVE YOU EVER HAD ANY DIFFICULTY BREATHING OR HIVES AFTER EATING OR HANDLING ANY FRUITS, OR VEGETABLES; SUCH KIWI, BANANAS, STONE FRUITS, OR CHESTNUTSNO LATEX RISK : DO YOU HAVE A PREVIOUS PERSONAL HISTORY OF MORE THAN NINE SURGERIES, SPINA BIFIDA, OR REPEATED CATHERIZATIONS? NO LATEX RISK : ARE YOU FREQUENTLY EXPOSED TO LATEX PRODUCTS IN YOUR OCCUPATION?NO DATE ASKED : 12/17/2020 ALCOHOL USE: NO. LUNG CANCER SCREENING SMOKING STATUS:NON SMOKER BMI CARE GOAL FOLLOW-UP ABOVE NORMAL BMI FOLLOW-UPDIETARY MANAGEMENT EDUCATION, GUIDANCE, AND COUNSELING ALCOHOL SCREENING DID YOU HAVE A DRINK CONTAINING ALCOHOL IN THE PAST YEAR?NO POINTS0 INTERPRETATIONNEGATIVE RECREATIONAL DRUG USE DRUG USE?NO CAFFEINE CAFFEINE USE?YES 2 DIET SODAS A WEEK SEXUAL HX HAD SEX IN THE LAST 12 MONTHS (VAGINAL, ORAL, OR ANAL)?NO HAVE YOU EVER HAD AN STD?NO HIV / HEP-C SCREENING HIV TEST OFFERED TO PATIENT:YES DATE OFFERED:07/26/2018 TEST ACCEPTED:NO HEP-C TEST OFFERED TO PATIENT:YES DATE OFFERED:07/26/2018 REASON:PATIENT DECLINED TEST ACCEPTED:NO REASON:PATIENT DECLINED BROCHURE PROVIDED TO PATIENTNO ALEVISM [id number] NONE LANGUAGE LANGUAGES SPOKEN:ESTONIAN EDUCATION SOME COLLEGE. LEARNING BARRIERS / SPECIAL NEEDS CHANGE FROM LAST VISIT?NO BARRIERS TO LEARNING?NO HEARING IMPAIRED?YES HEARING AID VISION IMPAIRED?YES :CORRECTIVE LENSES FOR DRIVING COGNITIVELY IMPAIRED?NO READINESS TO LEARN?YES LEARNING PREFERENCES?NO LEARNING CAPABILITIES PRESENT?YES EMOTIONAL BARRIERS?NO SPECIAL DEVICES?YES :CANE, WALKER, BRACE CHIEF ADMINISTRATIVE OFFICER NEEDED?NO DOMESTIC VIOLENCE DO YOU FEEL SAFE IN YOUR ENVIRONMENT?YES OCCUPATION: RETIRED. DIET: REGULAR. EXERCISE: NO REGULAR EXERCISE. MARITAL STATUS: . OTHERS AT HOME: NONE. - HAS THE PATIENT BEEN EDUCATED REGARDING HIS/HER PLAN OF CARE?YES HAS THE PATIENT BEEN EDUCATED REGARDING PAIN, THE RISK FOR PAIN, THE IMPORTANCE OF EFFECTIVE PAIN MANAGEMENT, AND THE PAIN ASSESSMENT PROCESS?YES ADVANCE DIRECTIVE ADVANCE DIRECTIVE DISCUSSED WITH PATIENT: NO ADVANCED CARE DIRECTIVES AT THIS TIME. PATIENT GIVEN HCP INFORMATION AND VERBALIZED UNDERSTANDING. WILL TAKE HOME TO REVIEW. 07/07/20 REVIEW OF SYSTEMS CONSTITUTIONAL: ANY RECENT FEVER NO . CHILLS NO . WEIGHT CHANGE OF UNKNOWN REASONS NO . GASTROENTEROLOGY: NEW UNEXPLAINABLE CHANGES IN BOWEL CONTROL NO . CONSTIPATION NO . GENITOURINARY: ANY NEW CHANGE IN BLADDER CONTROL? NO . NEUROLOGY: NEW ONSET DIZZINESS OR NEUROLOGICAL CHANGES NOT MENTIONED NO . NEW NUMBNESS OR PAIN PATTERNS NOT MENTIONED AND PERTINENT TO TODAY'S VISIT NO . CARDIOLOGY: NEW CHEST PRESSURE NO . PATIENT DENIES NO . RESPIRATORY: UNEXPLAINABLE COUGH NO . NEW SHORTNESS OF BREATH NO . VITAL SIGNS WT 207.8 LBS, HT 63 IN, BMI 36.81 INDEX, BP 164/84 MM HG, HR 94 /MIN, RR 18 /MIN, TEMP 98.6 F, OXYGEN SAT % 95%, SAFE IN ENV? (Y/N) YES, NA INITIALS AW 1317, REVIEWED BY: ELIEZER EUCEDA MA. EXAMINATION GENERAL EXAMINATION: GENERALNO ACUTE DISTRESS, WELL NOURISHED AND HYDRATED. PSYCHAPPROPRIATE MOOD AND AFFECT . LUNGS:CLEAR TO AUSCULTATION BILATERALLY, NO WHEEZES, RHONCHI, RALES. HEART:GRADE 2 OF 4 MURMUR NOTED HEART RATE REGULAR . ASSESSMENTS LUMBAR SPONDYLOSIS - M47.816 (PRIMARY), RISK: (NULL) TREATMENT LUMBAR SPONDYLOSIS NOTES: 80-YEAR-OLD FEMALE IN FOR CHRONIC PAIN FOLLOW-UP. INFORMED PATIENT THAT SHE SHOULD NOT BE INCREASING HER MEDICATION UNLESS SHE DISCUSSES IT WITH CLINIC FIRST. HOWEVER GIVEN PATIENT'S INCREASED PAIN RECOMMEND INCREASING NUMBER OF TABS TO 75 TABS PER MONTH AND AN MDD OF 3. PATIENT IS AWARE THAT SHE WILL NOT HAVE ENOUGH TABS TO TAKE 3 DAILY FOR THE WHOLE MONTH. PATIENT HAS EXPRESSED UNDERSTANDING OF AND WAS IN AGREEMENT WITH TREATMENT PLAN. GIVEN TIME TO ASK QUESTIONS AND EXPRESS CONCERNS. ISTOP REGISTRY REVIEWED AND DEMONSTRATES COMPLLIANCE. (REF # [id number] ) BRINGS IN MEDICATIONS WHICH IS APPROPRIATE FOR WHAT WAS DISPENSED. RECENT URINE TOXICOLOGY REVIEWED. NO UNAUTHORIZED MEDICATIONS. NO ILLICIT SUBSTANCES AND PRESCRIBED MEDICATIONS WERE PRESENT. PROCEDURE CODES FA211 ESTABILISHED PATIENT [facility] CHARGE DISPOSITION & COMMUNICATION FOLLOW UP 3 MONTHS (REASON: LOW BACK PAIN ) ELECTRONICALLY SIGNED BY KATARINA CONDE ON 12/18/2020 AT 12:55 PM EDT DISCLAIMER : THIS IS A VISIT SUMMARY EXTRACTED FROM THE [employer] CHART. IT IS NOT A COPY OF THE [employer] PROGRESS NOTE. DARREN
== END ==
LOC: M PAIN 13:30
PROVIDERS: ATTEND Family Medicine
DX: M47.816 Spondylosis without myelopathy or radiculopathy, lumbar region (principal); I13.0 Hypertensive heart and chronic kidney disease with heart failure and stage 1 through stage 4 chronic kidney disease, or unspecified chronic kidney disease; E11.22 Type 2 diabetes mellitus with diabetic chronic kidney disease; M79.7 Fibromyalgia; I50.32 Chronic diastolic (congestive) heart failure; F32.9 Major depressive disorder, single episode, unspecified; N18.2 Chronic kidney disease, stage 2 (mild); R32 Unspecified urinary incontinence; K44.9 Diaphragmatic hernia without obstruction or gangrene; K29.50 Unspecified chronic gastritis without bleeding; G47.33 Obstructive sleep apnea (adult) (pediatric); D50.9 Iron deficiency anemia, unspecified; E02 Subclinical iodine-deficiency hypothyroidism; M48.061 Spinal stenosis, lumbar region without neurogenic claudication; Z79.84 Long term (current) use of oral hypoglycemic drugs; Z79.891 Long term (current) use of opiate analgesic; Z79.899 Other long term (current) drug therapy; Z88.2 Allergy status to sulfonamides; Z91.013 Allergy to seafood

== ENCOUNTER → 2021-01-01 | Outpatient (CLI) | payer MEDICARE ==
--- NOTE | 2021-01-04 23:59 | ECWPNPC ---
PATIENT NAME: ROWAN FATIMA : 1940 GENDER: FEMALE VISIT DATE: 01/01/2021 DISCHARGE DATE: 01/01/21 1402 VISIT LOCKED DATE TIME: PHYSICIAN: LISY BIRD PHYSICIAN PAGER NO: ACTIVE RESOURCE: LISY BIRD REASON FOR APPOINTMENT 1. INCREASED LOW BACK PAIN HISTORY OF PRESENT ILLNESS GENERAL: HPI 80-YEAR-OLD FEMALE IN FOR CHRONIC PAIN FOLLOW-UP. AT LAST CLINIC VISIT PATIENT'S NUMBER OF HYDROCODONE WAS INCREASED TO 75 TABS AND HER MDD WAS INCREASED TO 3. PATIENT DOES FEEL THAT THIS WAS BENEFICIAL HOWEVER SHE STILL EXPERIENCES INCREASED PAIN AT TIMES. PATIENT ADMITS TO SEEING A NEUROSURGEON AND IS NOW SCHEDULED FOR SURGERY IN .. -. FALL RISK SCREENING: SCREENING : NO FALLS REPORTED IN THE LAST YEAR. PAIN SCREENING: PATIENT HAS A COMPLAINT OF ACUTE OR CHRONIC PAIN :YES LOCATION OF PAIN:LOW BACK, LEG(S) INTENSITY OF PAIN (SCALE OF 1 TO 10):8 WHAT DOES YOUR PAIN FEEL LIKE:ACHING, CONTINOUS DURATION:CONTINOUS PAIN IS INCREASED BY:ACTIVITIES PAIN IS DECREASED BY:OTHERS REST NURSING NOTE: -. PAIN CENTER INTAKE QUESTIONS: DO YOU HAVE A HISTORY OF MRSA? :NO DO YOU TAKE A BLOOD THINNERS? :NO DO YOU HAVE ANY BLEEDING DISORDERS? :NO ANY NEW NUMBNESS OR WEAKNESS IN YOUR LEGS OR ARMS? :NO ANY PACEMAKER,DEFIBRILLATOR, OR DORSAL COLUMN STIMULATOR? :NO DO YOU HAVE ANY RASHES OR OPEN SORES? :NO ARE YOU ALLERGIC TO IV DYE? :NO ARE YOU DIABETIC? :YES ANY NEW PROBLEMS WITH YOUR MEDICATIONS? :NO HAVE YOU RECEIVED A VACCINE IN THE PAST 30 DAYS? :NO DO YOU PLAN TO RECEIVE A VACCINE IN THE NEXT 21 DAYS? :NO DO YOU NEED ANY PRESCRIPTION? :YES HYDROCODONE DO YOU TAKE ANY IMMUNOSUPPRESSIVE MEDICATIONS? :NO DO YOU HAVE ANY KIDNEY OR LIVER DISEASE? :NO IS THERE A CHANCE YOU COULD BE ? :NO ARE YOU BREAST FEEDING? :NO CURRENT MEDICATIONS TAKING METFORMIN HCL 500 MG TABLET 1 TABLET WITH A MEAL ORALLY BID TAKING ACETAMINOPHEN 650 MG TABLET 2 TABLET NEEDED ORALLY EVERY 6 HRS TAKING CALCIUM-VITAMIN D 500-400 MG-UNIT TABLET 2 TAB ORALLY DAILY TAKING ARTIFICIAL TEARS 1-0.3 % SOLUTION 1 GTT IN EACH EYE OPHTHALMIC FOUR TIMES DAILY NEEDED TAKING FERROUS GLUCONATE 324 (38 FE) MG TABLET 1 TABLET WITH WATER OR JUICE BETWEEN MEALS ORALLY BID TAKING DULOXETINE HCL 60 MG CAPSULE DELAYED RELEASE PARTICLES 1 CAP ORALLY DAILY TAKING PANTOPRAZOLE SODIUM 40 MG TABLET DELAYED RELEASE 1 TABLET ORALLY ONCE A DAY TAKING LOSARTAN POTASSIUM 50 MG TABLET 1 TABLET ORALLY ONCE A DAY TAKING FUROSEMIDE 40 MG TABLET TAKE ONE TABLET BY MOUTH EVERY DAY ORAL TAKING METOPROLOL SUCCINATE ER 25 MG TABLET EXTENDED RELEASE 24 HOUR 1 TABLET ORALLY BID TAKING EPIPEN 2-ROBERTO 0.3 MG/0.3ML SOLUTION AUTO-INJECTOR DIRECTED INJECTION DIRECTED TAKING CARPAL TUNNEL WRIST STABILIZER - MISCELLANEOUS G56.03 _ BEFORE BEDTIME TAKING AMLODIPINE BESYLATE 2.5 MG TABLET 1 TABLET ORALLY ONCE A DAY TAKING LYRICA 100 MG CAPSULE 1 CAPSULE ORALLY TWICE A DAY TAKING HYDROCODONE-ACETAMINOPHEN 5-325 MG TABLET 1 TABLET NEEDED ORALLY EVERY 12 HRS PRN PAIN MEDICATION LIST REVIEWED AND RECONCILED WITH THE PATIENT PAST MEDICAL HISTORY HTN WELL CONTROLLED TYPE 2 DIABETES FIBROMYALGOA ARTHRITIS DIASTOLIC HEART FAILURE/LVH-- EF 65%, SEES [facility]/DR EMERSON DEPRESSION HX OF VIRAL MENGITIS ECHO 10/13: EF 65%, MILD (MEAN GRADIENT 19 MM), MILD AR; CONCENTRIC LVH INCONTINENCE HIATAL HERNIA AND CHRONIC GASTRITIS--CT 11/12 LARGE HH; EGD 01/12 SHOWED 2 ABI ULCERS (IRON DEFIC ANEMIA) RACHEL-- DOESN'T TOLERATE CPAP IRON DEFIC ANEMIA--IRON INFUSION IN [place] 2017; EGD/COLO 01/12 (ABI ULCERS) SUBCLINICAL HYPOTHYROIDISM 01/12 CHRONIC LOW BACK PAIN--DDD/DJD SEVERE SPINAL STENOSIS JUAN JOSÉ L4-L5, MRI 07/16 ALLERGIES SULFA (FOR ALLERGY USE ONLY): HIVES - ALLERGY SHELLFISH: ANAPHYLAXIS - ALLERGY SOCIAL HISTORY GENERAL: TOBACCO USE ARE YOU A:NONSMOKER LATEX QUESTIONNAIRE LATEX ALLERGY : HAVE YOU EVER DEVELOPED ANY TYPE OF REACTION AFTER HANDLING LATEX PRODUCTS SUCH RUBBER GLOVES, CONDOMS, DIAPHRAGMS, BALLOONS, SOCKS, OR UNDERWEAR?NO LATEX ALLERGY : HAVE YOU EVER DEVELOPED ANY TYPE OF REACTION DURING OR AFTER DENTAL APPOINTMENT, VAGINAL/RECTAL EXAMINATION, SURGICAL PROCEDURE, OR ANY OTHER EXPOSURE?NO LATEX RISK : HAVE YOU EVER HAD ANY DIFFICULTY BREATHING OR HIVES AFTER EATING OR HANDLING ANY FRUITS, OR VEGETABLES; SUCH KIWI, BANANAS, STONE FRUITS, OR CHESTNUTSNO LATEX RISK : DO YOU HAVE A PREVIOUS PERSONAL HISTORY OF MORE THAN NINE SURGERIES, SPINA BIFIDA, OR REPEATED CATHERIZATIONS? NO LATEX RISK : ARE YOU FREQUENTLY EXPOSED TO LATEX PRODUCTS IN YOUR OCCUPATION?NO DATE ASKED : 01/01/2021 ALCOHOL USE: NO. LUNG CANCER SCREENING SMOKING STATUS:NON SMOKER BMI CARE GOAL FOLLOW-UP ABOVE NORMAL BMI FOLLOW-UPDIETARY MANAGEMENT EDUCATION, GUIDANCE, AND COUNSELING ALCOHOL SCREENING DID YOU HAVE A DRINK CONTAINING ALCOHOL IN THE PAST YEAR?NO POINTS0 INTERPRETATIONNEGATIVE RECREATIONAL DRUG USE DRUG USE?NO CAFFEINE CAFFEINE USE?YES 2 DIET SODAS A WEEK SEXUAL HX HAD SEX IN THE LAST 12 MONTHS (VAGINAL, ORAL, OR ANAL)?NO HAVE YOU EVER HAD AN STD?NO HIV / HEP-C SCREENING HIV TEST OFFERED TO PATIENT:YES DATE OFFERED:07/26/2018 TEST ACCEPTED:NO HEP-C TEST OFFERED TO PATIENT:YES DATE OFFERED:07/26/2018 REASON:PATIENT DECLINED TEST ACCEPTED:NO REASON:PATIENT DECLINED BROCHURE PROVIDED TO PATIENTNO GNOSTICISM [id number] NONE LANGUAGE LANGUAGES SPOKEN:ROMANIAN EDUCATION SOME COLLEGE. LEARNING BARRIERS / SPECIAL NEEDS CHANGE FROM LAST VISIT?NO BARRIERS TO LEARNING?NO HEARING IMPAIRED?YES HEARING AID VISION IMPAIRED?YES COGNITIVELY IMPAIRED?NO :CORRECTIVE LENSES FOR DRIVING READINESS TO LEARN?YES LEARNING PREFERENCES?NO LEARNING CAPABILITIES PRESENT?YES EMOTIONAL BARRIERS?NO SPECIAL DEVICES?YES :CANE, WALKER, BRACE TELEVISION INSPECTOR NEEDED?NO DOMESTIC VIOLENCE DO YOU FEEL SAFE IN YOUR ENVIRONMENT?YES OCCUPATION: RETIRED. DIET: REGULAR. EXERCISE: NO REGULAR EXERCISE. MARITAL STATUS: . OTHERS AT HOME: NONE. - HAS THE PATIENT BEEN EDUCATED REGARDING HIS/HER PLAN OF CARE?YES HAS THE PATIENT BEEN EDUCATED REGARDING PAIN, THE RISK FOR PAIN, THE IMPORTANCE OF EFFECTIVE PAIN MANAGEMENT, AND THE PAIN ASSESSMENT PROCESS?YES ADVANCE DIRECTIVE ADVANCE DIRECTIVE DISCUSSED WITH PATIENT: NO ADVANCED CARE DIRECTIVES AT THIS TIME. PATIENT GIVEN HCP INFORMATION AND VERBALIZED UNDERSTANDING. WILL TAKE HOME TO REVIEW. 07/07/20 REVIEW OF SYSTEMS CONSTITUTIONAL: ANY RECENT FEVER NO . CHILLS NO . WEIGHT CHANGE OF UNKNOWN REASONS NO . GASTROENTEROLOGY: NEW UNEXPLAINABLE CHANGES IN BOWEL CONTROL NO . CONSTIPATION NO . GENITOURINARY: ANY NEW CHANGE IN BLADDER CONTROL? NO . NEUROLOGY: NEW ONSET DIZZINESS OR NEUROLOGICAL CHANGES NOT MENTIONED NO . NEW NUMBNESS OR PAIN PATTERNS NOT MENTIONED AND PERTINENT TO TODAY'S VISIT NO . CARDIOLOGY: NEW CHEST PRESSURE NO . PATIENT DENIES NO . RESPIRATORY: UNEXPLAINABLE COUGH NO . NEW SHORTNESS OF BREATH NO . VITAL SIGNS WT 205 LBS, HT 63 IN, BMI 36.31 INDEX, BP 169/88 MM HG, HR 79 /MIN, RR 18 /MIN, TEMP 96.6 F, OXYGEN SAT % 95%, SAFE IN ENV? (Y/N) YES, NA INITIALS CT 13:22, REVIEWED BY: Fabiano BAY RN. EXAMINATION GENERAL EXAMINATION: GENERALNO ACUTE DISTRESS, WELL NOURISHED AND HYDRATED. PSYCHAPPROPRIATE MOOD AND AFFECT . LUNGS:CLEAR TO AUSCULTATION BILATERALLY, NO WHEEZES, RHONCHI, RALES. HEART:NO MURMURS, REGULAR RATE AND RHYTHM. 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 DISCUSSED UPCOMING SURGERY WITH PATIENT AND RECOMMENDED CONTINUATION OF CURRENT MEDICATION REGIMEN WITH FOLLOW-UP IN 3 MONTHS. PATIENT HAS EXPRESSED UNDERSTANDING OF AND WAS IN AGREEMENT WITH TREATMENT PLAN. GIVEN TIME TO ASK QUESTIONS AND EXPRESS CONCERNS. ISTOP REGISTRY REVIEWED AND DEMONSTRATES COMPLLIANCE. (REF # [id number] ) BRINGS IN MEDICATIONS WHICH IS APPROPRIATE FOR WHAT WAS DISPENSED. RECENT URINE TOXICOLOGY REVIEWED. NO UNAUTHORIZED MEDICATIONS. NO ILLICIT SUBSTANCES AND PRESCRIBED MEDICATIONS WERE PRESENT. PROCEDURE CODES FA211 ESTABILISHED PATIENT [facility] CHARGE DISPOSITION & COMMUNICATION FOLLOW UP 3 MONTHS (REASON: LOW BACK PAIN) ELECTRONICALLY SIGNED BY KATARINA CONDE ON 01/04/2021 AT 01:14 PM EDT DISCLAIMER : THIS IS A VISIT SUMMARY EXTRACTED FROM THE [employer] CHART. IT IS NOT A COPY OF THE [employer] PROGRESS NOTE. MTDD
== END ==
LOC: M PAIN 13:30
PROVIDERS: ATTEND Family Medicine
DX: M51.37 Other intervertebral disc degeneration, lumbosacral region (principal); G89.29 Other chronic pain; E11.9 Type 2 diabetes mellitus without complications; M79.7 Fibromyalgia; G47.33 Obstructive sleep apnea (adult) (pediatric); D50.9 Iron deficiency anemia, unspecified; Z86.59 Personal history of other mental and behavioral disorders; Z88.2 Allergy status to sulfonamides; Z91.013 Allergy to seafood; Z79.84 Long term (current) use of oral hypoglycemic drugs; Z79.899 Other long term (current) drug therapy

== ENCOUNTER 2021-02-27 15:03 | Emergency (ER) | payer MEDICARE ==
[~2021-02-27] VITALS: Ht 160 cm; Wt 90.9 kg
[2021-02-27] MEDS ORDERED: METF500T13 (15:14)
[2021-02-27] MEDS ORDERED: FURO40TA2 (15:14)
[2021-02-27] MEDS ORDERED: TRAM50TA2 (15:14)
[2021-02-27 17:24] LABS: BASO # 0.1 10^3/uL (0.0-0.2); BASO % 0.8 % (0.0-1.0); EOS # 0.4 10^3/uL (0.0-0.5); EOS % 5.2 % (0.0-3.0); HEMATOCRIT 41.3 % (36.0-47.0); HEMOGLOBIN 13.4 g/dl (12.0-15.5); LYMPH # 1.8 10^3/uL (1.5-5.0); LYMPH % 22.5 % (24.0-44.0); MEAN CORPUSCULAR HEMOGLOBIN 29.4 pg (27.0-33.0); MEAN CORPUSCULAR HGB CONC 32.4 g/dl (32.0-36.5); MEAN CORPUSCULAR VOLUME 90.6 fl (80.0-96.0); MONO # 0.9 10^3/uL (0.0-0.8); NEUTROPHILS # 4.8 10^3/uL (1.5-8.5); NEUTROPHILS % 60.1 % (36.0-66.0); PLATELET COUNT, AUTOMATED 203 10^3/uL (150-450); RED BLOOD COUNT 4.56 10^6/uL (4.00-5.40); WHITE BLOOD COUNT 7.9 10^3/uL (4.0-10.0)
[2021-02-27 17:49] LABS: BLOOD UREA NITROGEN 13 MG/DL (7-18); CALCIUM LEVEL 9.7 MG/DL (8.8-10.2); CARBON DIOXIDE LEVEL 27 MEQ/L (21-32); CHLORIDE LEVEL 108 MEQ/L (98-107); CK-MB VALUE MASS 3.1 NG/ML (<3.6); CPK CREATINE PHOSPHOKINASE 93 U/L (26-192); CREATININE FOR GFR 0.57 MG/DL (0.55-1.30); GLOMERULAR FILTRATION RATE > 60.0 (>39); GLUCOSE, FASTING 88 MG/DL (70-100); MAGNESIUM LEVEL 1.7 MG/DL (1.8-2.4); MB/CK RELATIVE INDEX 3.33 (< OR =4); NT-PRO BNP 123 PG/ML (<450); POTASSIUM SERUM 3.7 MEQ/L (3.5-5.1); SODIUM LEVEL 141 MEQ/L (136-145); TROPONIN I < 0.02 NG/ML (< 0.10)
--- NOTE | 2021-02-27 18:03 | REPVR ---
PROCEDURE INFORMATION: Exam: XR Chest Exam date and time: 02/27/2021 4:56 PM Age: 80 years old Clinical indication: Other: SOB TECHNIQUE: Imaging protocol: XR of the chest. Views: 1 view. COMPARISON: CR PORTABLE CHEST X-RAY 11/24/2019 3:58 PM FINDINGS: Lungs: Bibasilar atelectasis. Lungs otherwise clear. Pleural spaces: Unremarkable. No pleural effusion. No pneumothorax. Heart/Mediastinum: Unremarkable. No cardiomegaly. Bones/joints: Unremarkable. IMPRESSION: No acute findings. Electronically signed by: Andre Blandon On 02/27/2021 18:02:55 PM
[2021-02-27] MEDS ORDERED: ISOVUE-370 76% 100ML VIAL As Ordered ONE (19:44)
[2021-02-27 20:26] LABS: CK-MB VALUE MASS 2.4 NG/ML (<3.6); CPK CREATINE PHOSPHOKINASE 74 U/L (26-192); MB/CK RELATIVE INDEX 3.24 (< OR =4); TROPONIN I < 0.02 NG/ML (< 0.10)
--- NOTE | 2021-02-27 20:39 | REPVR ---
PROCEDURE INFORMATION: Exam: CTA Chest With Contrast Exam date and time: 02/27/2021 8:09 PM Age: 80 years old Clinical indication: Other: Rule out pe TECHNIQUE: Imaging protocol: Computed tomographic angiography of the chest with contrast. 3D rendering (Not supervised by radiologist): MIP and/or 3D reconstructed images were created by the technologist. Radiation optimization: All CT scans at this facility use at least one of these dose optimization techniques: automated exposure control; mA and/or kV adjustment per patient size (includes targeted exams where dose is matched to clinical indication); or iterative reconstruction. Contrast material: ISOVUE 370; Contrast volume: 75 ml; Contrast route: INTRAVENOUS (IV); COMPARISON: CT ANGIO CHEST 11/24/2019 5:26 PM FINDINGS: Pulmonary arteries: There are no pulmonary emboli. Aorta: There is fusiform dilatation of the supravalvular ascending thoracic aorta which measures 4 cm. maximally. There is no dissection or saccular component. Lungs: Bibasilar septal thickening consistent with mild interstitial lung disease. Few scattered less than 3 mm noncalcified pulmonary parenchymal nodules demonstrated peripherally consistent with postinflammatory change. No follow-up suggested according to Fleischner guidelines. Pleural spaces: Unremarkable. No pneumothorax. No pleural effusion. Heart: Unremarkable. No cardiomegaly. No pericardial effusion. Mediastinal space: A moderate hiatal hernia is present. Lymph nodes: Multiple small mediastinal lymph nodes likely postinflammatory. Bones/joints: The spine demonstrates moderate degenerative changes. Soft tissues: Unremarkable. IMPRESSION: 1. Bibasilar septal thickening consistent with mild interstitial lung disease. 2. A moderate hiatal hernia is present. 3. There is fusiform dilatation of the supravalvular ascending thoracic aorta which measures 4 cm. maximally. There is no dissection or saccular component. 4. There are no pulmonary emboli. Electronically signed by: Andre Blandon On 02/27/2021 20:39:31 PM
[2021-02-27 21:30] VITALS: BP 144/84
--- NOTE | 2021-02-28 07:53 | ED PDOC ---
Post-Departure Follow-Up radiology repor tfaxed to Laura Ardon MD Feb 28, 2021 07:53
--- NOTE | 2021-03-01 16:40 | ECGEPIP ---
[facility] - ED Test Date: 2021-02-27 Pat Name: ARGENTINA FATIMA Department: Room: - Gender: Female Chief Of Pediatric Urology: RS : 1940 Requested By: MEI Hendricks Order Number: [id number] Reading MD: Laura Mathur Measurements Intervals [place] Rate: 58 P: 23 [place]: 158 QRS: 22 QRSD: 88 T: 29 QT: 436 QTc: 428 Interpretive Statements Sinus bradycardia NSTTW abnormalities decreased rate 11/24/19 Electronically Signed on 03-01-2021 16:40:07 EDT by Laura Mathur
--- NOTE | 2021-03-01 16:41 | ECGEPIP ---
[facility] - ED Test Date: 2021-02-27 Pat Name: ARGENTINA FATIMA Department: Room: - Gender: Female Pharmacy Student: MICHAEL : 1940 Requested By: MEI Hendricks Order Number: [id number] Reading MD: Laura Mathur Measurements Intervals [place] Rate: 64 P: 42 [place]: 180 QRS: 39 QRSD: 74 T: 48 QT: 410 QTc: 422 Interpretive Statements Normal sinus rhythm NSTTW abnormalities similar 02/27/21 Electronically Signed on 03-01-2021 16:40:47 EDT by Laura Mathur
== END 2021-02-27 21:42 | disposition home or self-care (01) ==
LOC: M ED 15:03
DX: K44.9 Diaphragmatic hernia without obstruction or gangrene (principal); I11.0 Hypertensive heart disease with heart failure; I50.9 Heart failure, unspecified; E11.9 Type 2 diabetes mellitus without complications; E78.5 Hyperlipidemia, unspecified; Z79.899 Other long term (current) drug therapy; Z79.84 Long term (current) use of oral hypoglycemic drugs; Z88.1 Allergy status to other antibiotic agents; Z88.2 Allergy status to sulfonamides; Z88.5 Allergy status to narcotic agent; Z91.018 Allergy to other foods
CPT/HCPCS: 36415; 71045; 71275; 80048; 82550; 82553; 83735; 83880; 84484; 85025; 87798; 87880; 93005; 99285; Q9967

== ENCOUNTER 2021-03-03 13:00 | Emergency (ER) | payer MEDICARE ==
[~2021-03-03] VITALS: Ht 160 cm; Wt 90.9 kg
[~2021-03-03 13:00] MED LIST changes: +FURO40TA2; +METF500T13; +TRAM50TA2
[2021-03-03] MEDS ORDERED: ALBUTEROL 90 MCG/ACT 8GM HFA INHALER INH ONE ×2 (17:40→22:35)
[2021-03-03 18:14] LABS: BASO # 0.1 10^3/uL (0.0-0.2); BASO % 0.7 % (0.0-1.0); EOS # 0.4 10^3/uL (0.0-0.5); EOS % 4.1 % (0.0-3.0); HEMATOCRIT 41.9 % (36.0-47.0); HEMOGLOBIN 13.4 g/dl (12.0-15.5); LYMPH % 18.8 % (24.0-44.0); MEAN CORPUSCULAR HEMOGLOBIN 29.3 pg (27.0-33.0); MEAN CORPUSCULAR VOLUME 91.7 fl (80.0-96.0); MONO % 9.7 % (2.0-8.0); NEUTROPHILS # 6.9 10^3/uL (1.5-8.5); NEUTROPHILS % 66.4 % (36.0-66.0); PLATELET COUNT, AUTOMATED 210 10^3/uL (150-450); RED BLOOD COUNT 4.57 10^6/uL (4.00-5.40); WHITE BLOOD COUNT 10.4 10^3/uL (4.0-10.0)
[2021-03-03 18:38] LABS: ALBUMIN 3.5 GM/DL (3.2-5.2); ALT/SGPT 28 U/L (12-78); BILIRUBIN,TOTAL 0.4 MG/DL (0.2-1.0); BLOOD UREA NITROGEN 10 MG/DL (7-18); CALCIUM LEVEL 9.7 MG/DL (8.8-10.2); CARBON DIOXIDE LEVEL 30 MEQ/L (21-32); CHLORIDE LEVEL 105 MEQ/L (98-107); CK-MB VALUE MASS < 1.0 NG/ML (<3.6); CPK CREATINE PHOSPHOKINASE 46 U/L (26-192); CREATININE FOR GFR 0.65 MG/DL (0.55-1.30); GLOMERULAR FILTRATION RATE > 60.0 (>39); GLUCOSE, FASTING 109 MG/DL (70-100); MB/CK RELATIVE INDEX 2.17 (< OR =4); NT-PRO BNP 483 PG/ML (<450); POTASSIUM SERUM 3.7 MEQ/L (3.5-5.1); SODIUM LEVEL 141 MEQ/L (136-145); TOTAL PROTEIN 7.2 GM/DL (6.4-8.2); TROPONIN I < 0.02 NG/ML (< 0.10)
[2021-03-03 18:50] LABS: RSV AMPLIFICATION NEGATIVE (NEGATIVE)
--- NOTE | 2021-03-03 19:45 | REP ---
INDICATION: wheezing, shortness of breath, rales LLL. COMPARISON: Comparison chest x-ray February 27, 2021. TECHNIQUE: Portable upright AP chest radiograph. FINDINGS: There is a large hiatal hernia again noted behind the heart. Mild cardiomegaly is observed. Pulmonary vasculature is cephalized. No definite infiltrate. No evidence of pleural effusion. IMPRESSION: Cardiomegaly. Large hiatal hernia. Pulmonary vascular cephalization. No evidence of pleural effusion or pulmonary edema. <Electronically signed by Guille Olvera > 03/03/211940
--- NOTE | 2021-03-03 22:07 | REPVR ---
PROCEDURE INFORMATION: Exam: CT Chest Without Contrast; Diagnostic Exam date and time: 03/03/2021 8:37 PM Age: 80 years old Clinical indication: Other: Cough, SOB, lll rales TECHNIQUE: Imaging protocol: Diagnostic computed tomography of the chest without contrast. 3D rendering (Not supervised by radiologist): MIP and/or 3D reconstructed images were created by the technologist. Radiation optimization: All CT scans at this facility use at least one of these dose optimization techniques: automated exposure control; mA and/or kV adjustment per patient size (includes targeted exams where dose is matched to clinical indication); or iterative reconstruction. COMPARISON: CT ANGIO CHEST 02/27/2021 8:08 PM FINDINGS: Lungs: 3 mm nodule in the right upper lobe 5 mm nodule in the posterior right upper lobe. 3 mm nodule in the right upper lobe. Pleural spaces: Unremarkable. No pneumothorax. No pleural effusion. Heart: Cardiomegaly. Aorta: See "Stomach and bowel" finding. Lymph nodes: Unremarkable. No enlarged lymph nodes. Stomach and bowel: Large hiatal hernia containing the stomach. Ectatic ascending aorta measuring 4 cm. Bones/joints: Degenerative changes the spine. Soft tissues: Unremarkable. IMPRESSION: No acute abnormality. Large hiatal hernia . Nodules in the right lung with the largest measuring 5 mm. For patients at low risk (minimal or absent history of smoking and of other known risk factors), no routine follow-up is indicated. For patients at high risk (history of smoking or of other known risk factors), consider optional CT Chest at 12 months. (Reference: Pérez) References: Pérez H, et al. Guidelines for Management of Incidental Pulmonary Nodules Detected on CT Images: From the Fleischner Society 2017. Radiology. 2017;284(1):228-243. Electronically signed by: Sanjay Augustin On 03/03/2021 22:06:48 PM
[2021-03-03] MEDS ORDERED: LEVALBUTEROL HFA 45MCG/ACT 15 GM INHALER INH PRN ×2 (23:35→23:50)
[2021-03-04 00:08] VITALS: BP 152/92
--- NOTE | 2021-03-04 06:29 | ECGEPIP ---
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
== END 2021-03-04 00:30 | disposition home or self-care (01) ==
LOC: M ED 13:00
DX: J20.9 Acute bronchitis, unspecified (principal); K44.9 Diaphragmatic hernia without obstruction or gangrene; R91.8 Other nonspecific abnormal finding of lung field; I51.7 Cardiomegaly; I50.9 Heart failure, unspecified; E11.9 Type 2 diabetes mellitus without complications; I10 Essential (primary) hypertension; E78.5 Hyperlipidemia, unspecified; Z79.899 Other long term (current) drug therapy; Z88.2 Allergy status to sulfonamides; Z88.5 Allergy status to narcotic agent; Z91.013 Allergy to seafood
CPT/HCPCS: 36415; 36600; 71045; 71250; 80053; 82550; 82553; 82803; 83880; 84484; 85025; 87631; 93005; 94640; 99284; G0463

== ENCOUNTER → 2021-03-19 | Outpatient (CLI) | payer MEDICARE | LOC: M PAIN 11:00 | PROVIDERS: ATTEND Anesthesiology | DX: M47.817 Spondylosis without myelopathy or radiculopathy, lumbosacral region (principal); I13.0 Hypertensive heart and chronic kidney disease with heart failure and stage 1 through stage 4 chronic kidney disease, or unspecified chronic kidney disease; N18.2 Chronic kidney disease, stage 2 (mild); I50.32 Chronic diastolic (congestive) heart failure; F32.9 Major depressive disorder, single episode, unspecified; G47.33 Obstructive sleep apnea (adult) (pediatric); E02 Subclinical iodine-deficiency hypothyroidism; E11.22 Type 2 diabetes mellitus with diabetic chronic kidney disease; Z79.891 Long term (current) use of opiate analgesic; Z79.84 Long term (current) use of oral hypoglycemic drugs; Z79.899 Other long term (current) drug therapy; Z88.2 Allergy status to sulfonamides; Z91.013 Allergy to seafood ==

== ENCOUNTER → 2021-03-22 | Outpatient (CLI) | payer MEDICARE ==
--- NOTE | 2021-03-25 04:11 | REP ---
INDICATION: SPONDYLS W/O MYELOPATHY OR RADICULOPATHY, LUMBOSACR REGION COMPARISON: 04/23/2020 TECHNIQUE: AP, lateral, flexion/extension, bilateral oblique, and coned-down views. FINDINGS: Patient is again noted to be status post satisfactory laminectomy and posterior fixation at the L5-S1 level which appears stable as compared to 04/23/2020. Endplate sclerosis with disc space narrowing and facet hypertrophy noted at L3-4. Remainder of the lumbar spine appears relatively age-appropriate. IMPRESSION: Stable postsurgical and degenerative changes. <Electronically signed by Alon Estrada > 03/25/21 [id number]
== END ==
LOC: M RAD 14:17
PROVIDERS: ATTEND Anesthesiology
DX: M47.817 Spondylosis without myelopathy or radiculopathy, lumbosacral region (principal)

== ENCOUNTER → 2021-04-21 | Outpatient (CLI) | payer MEDICARE ==
[~2021-04-21] MED LIST changes: -CYMB60CA3 PO; +CYMB60CA4 PO
== END ==
LOC: M LABSMTC 10:26
PROVIDERS: ATTEND Anesthesiology
DX: Z01.812 Encounter for preprocedural laboratory examination (principal); Z20.822 Contact with and (suspected) exposure to COVID-19; Z23 Encounter for immunization
CPT/HCPCS: 90682; G0008; G0463; U0003

== ENCOUNTER → 2021-04-26 | Outpatient (CLI) | payer MEDICARE ==
[~2021-04-26] MED LIST changes: +BUPIVACAINE HCL 0.25% 30ML VIAL As Ordered ONE; +ISOVUE-M 300 61% 15ML VIAL As Ordered ONE; +LIDOCAINE 1% SDV 30ML VIAL As Ordered ONE
--- NOTE | 2021-04-26 12:08 | REP ---
INDICATION: BILATERAL DIAGNOSTIC FACET BLOCK L4-L5, L5-S1 #1. COMPARISON: None. TECHNIQUE: Four C-arm views lower lumbar spine. FINDINGS: There is posterior fusion hardware at L4-5. [place] are seen along the lumbar spine at this level. IMPRESSION: 63 seconds fluoroscopy time utilized. <Electronically signed by Tyron Blakely > 04/26/21 [id number]
== END ==
LOC: M PAIN 09:20
PROVIDERS: ATTEND Anesthesiology
DX: M47.816 Spondylosis without myelopathy or radiculopathy, lumbar region (principal); M47.817 Spondylosis without myelopathy or radiculopathy, lumbosacral region; I12.9 Hypertensive chronic kidney disease with stage 1 through stage 4 chronic kidney disease, or unspecified chronic kidney disease; E11.22 Type 2 diabetes mellitus with diabetic chronic kidney disease; M79.7 Fibromyalgia; I50.32 Chronic diastolic (congestive) heart failure; F32.A Depression, unspecified; N18.2 Chronic kidney disease, stage 2 (mild); K44.9 Diaphragmatic hernia without obstruction or gangrene; G47.33 Obstructive sleep apnea (adult) (pediatric); D50.9 Iron deficiency anemia, unspecified; E02 Subclinical iodine-deficiency hypothyroidism; Z79.84 Long term (current) use of oral hypoglycemic drugs; Z79.891 Long term (current) use of opiate analgesic; Z79.899 Other long term (current) drug therapy; Z88.2 Allergy status to sulfonamides; Z91.013 Allergy to seafood
CPT/HCPCS: 64493; 64494; Q9967

== ENCOUNTER → 2021-05-28 | Outpatient (CLI) | payer MEDICARE ==
[~2021-05-28] MED LIST changes: -BUPIVACAINE HCL 0.25% 30ML VIAL As Ordered ONE; -ISOVUE-M 300 61% 15ML VIAL As Ordered ONE; -LIDOCAINE 1% SDV 30ML VIAL As Ordered ONE
== END ==
LOC: M PAIN 11:30
PROVIDERS: ATTEND Anesthesiology
DX: G89.29 Other chronic pain (principal); M96.1 Postlaminectomy syndrome, not elsewhere classified; M48.061 Spinal stenosis, lumbar region without neurogenic claudication; I13.0 Hypertensive heart and chronic kidney disease with heart failure and stage 1 through stage 4 chronic kidney disease, or unspecified chronic kidney disease; E11.9 Type 2 diabetes mellitus without complications; M79.7 Fibromyalgia; I50.32 Chronic diastolic (congestive) heart failure; F32.A Depression, unspecified; N18.2 Chronic kidney disease, stage 2 (mild); K44.9 Diaphragmatic hernia without obstruction or gangrene; R32 Unspecified urinary incontinence; D50.9 Iron deficiency anemia, unspecified; G47.33 Obstructive sleep apnea (adult) (pediatric); E02 Subclinical iodine-deficiency hypothyroidism; I71.2 Thoracic aortic aneurysm, without rupture; Z79.84 Long term (current) use of oral hypoglycemic drugs; Z79.891 Long term (current) use of opiate analgesic; Z79.899 Other long term (current) drug therapy; Z88.2 Allergy status to sulfonamides; Z91.013 Allergy to seafood

== ENCOUNTER → 2021-06-11 | Outpatient (CLI) | payer MEDICARE | LOC: M PAIN 15:15 | PROVIDERS: ATTEND Anesthesiology | DX: M96.1 Postlaminectomy syndrome, not elsewhere classified (principal); M48.061 Spinal stenosis, lumbar region without neurogenic claudication; I13.0 Hypertensive heart and chronic kidney disease with heart failure and stage 1 through stage 4 chronic kidney disease, or unspecified chronic kidney disease; E11.22 Type 2 diabetes mellitus with diabetic chronic kidney disease; M79.7 Fibromyalgia; I50.32 Chronic diastolic (congestive) heart failure; F32.A Depression, unspecified; N18.2 Chronic kidney disease, stage 2 (mild); R32 Unspecified urinary incontinence; K44.9 Diaphragmatic hernia without obstruction or gangrene; K29.50 Unspecified chronic gastritis without bleeding; G47.33 Obstructive sleep apnea (adult) (pediatric); D50.9 Iron deficiency anemia, unspecified; E02 Subclinical iodine-deficiency hypothyroidism; M54.50 Low back pain, unspecified; I71.4 Abdominal aortic aneurysm, without rupture; Z79.84 Long term (current) use of oral hypoglycemic drugs; Z79.899 Other long term (current) drug therapy; Z79.891 Long term (current) use of opiate analgesic; Z88.2 Allergy status to sulfonamides; Z91.013 Allergy to seafood ==

== ENCOUNTER → 2021-08-26 | Outpatient (REF) | payer MEDICARE ==
[~2021-08-26] MED LIST changes: -D31000TA2 PO; +LOSA100T45 PO; -LOSA100T50 PO; +VITA100093 PO
[2021-08-26 21:59] LABS: CALCIUM LEVEL 9.9 MG/DL (8.8-10.2); CREATININE FOR GFR 0.97 MG/DL (0.55-1.30); GLOMERULAR FILTRATION RATE 59.1 (>39); TOTAL PROTEIN 7.2 GM/DL (6.4-8.2)
[2021-08-26 22:30] LABS: BILIRUBIN,TOTAL 0.3 MG/DL (0.2-1.0); CHOLESTEROL RISK RATIO 2.731 (<5); THYROID STIMULATING HORMONE 1.58 uIU/ML (0.358-3.740)
[2021-08-27 11:18] LABS: FREE T4 1.02 NG/DL (0.76-1.46)
== END ==
LOC: M SFHCADAM 15:53
PROVIDERS: ATTEND Family Medicine
DX: E11.40 Type 2 diabetes mellitus with diabetic neuropathy, unspecified (principal); E03.9 Hypothyroidism, unspecified

== ENCOUNTER → 2021-10-25 | Outpatient (CLI) | payer MEDICARE | LOC: M PLAIMG 14:11 | PROVIDERS: ATTEND Neurological Surgery | DX: M48.062 Spinal stenosis, lumbar region with neurogenic claudication (principal); M43.26 Fusion of spine, lumbar region ==

== ENCOUNTER → 2021-11-09 | Outpatient (CLI) | payer MEDICARE | LOC: M PLAIMG 12:26 | PROVIDERS: ATTEND Physician Assistant | DX: M48.062 Spinal stenosis, lumbar region with neurogenic claudication (principal); M43.16 Spondylolisthesis, lumbar region; Z98.1 Arthrodesis status ==

== ENCOUNTER → 2021-11-16 | Outpatient (CLI) | payer MEDICARE | LOC: M PLALAB 09:58 | PROVIDERS: ATTEND Physician Assistant | DX: M48.062 Spinal stenosis, lumbar region with neurogenic claudication (principal); M43.16 Spondylolisthesis, lumbar region; Z98.1 Arthrodesis status ==

== ENCOUNTER → 2021-12-13 | Outpatient (CLI) | payer MEDICARE | LOC: M PAIN 11:30 | PROVIDERS: ATTEND Nurse Practitioner Family | DX: M96.1 Postlaminectomy syndrome, not elsewhere classified (principal); I13.0 Hypertensive heart and chronic kidney disease with heart failure and stage 1 through stage 4 chronic kidney disease, or unspecified chronic kidney disease; E11.22 Type 2 diabetes mellitus with diabetic chronic kidney disease; M79.7 Fibromyalgia; M19.90 Unspecified osteoarthritis, unspecified site; I50.30 Unspecified diastolic (congestive) heart failure; F32.A Depression, unspecified; N18.2 Chronic kidney disease, stage 2 (mild); R32 Unspecified urinary incontinence; K44.9 Diaphragmatic hernia without obstruction or gangrene; K29.50 Unspecified chronic gastritis without bleeding; G47.33 Obstructive sleep apnea (adult) (pediatric); D50.9 Iron deficiency anemia, unspecified; E02 Subclinical iodine-deficiency hypothyroidism; M48.061 Spinal stenosis, lumbar region without neurogenic claudication; I71.4 Abdominal aortic aneurysm, without rupture; Z79.891 Long term (current) use of opiate analgesic; Z79.84 Long term (current) use of oral hypoglycemic drugs; Z79.899 Other long term (current) drug therapy; Z88.2 Allergy status to sulfonamides; Z91.013 Allergy to seafood ==

== ENCOUNTER → 2021-12-16 | Outpatient (CLI) | payer MEDICARE | LOC: M PLAIMG 12:21 | PROVIDERS: ATTEND Neurological Surgery | DX: M48.062 Spinal stenosis, lumbar region with neurogenic claudication (principal) ==

== ENCOUNTER → 2021-12-22 | Outpatient (CLI) | payer MEDICARE | LOC: M WHC 13:20 | PROVIDERS: ATTEND Family Medicine | DX: Z13.820 Encounter for screening for osteoporosis (principal); M85.851 Other specified disorders of bone density and structure, right thigh; M85.852 Other specified disorders of bone density and structure, left thigh ==

== ENCOUNTER → 2022-03-01 | Outpatient (REF) | payer MEDICARE ==
[2022-03-01 13:28] LABS: HEMOGLOBIN 13.9 g/dl (12.0-15.5); MEAN CORPUSCULAR HEMOGLOBIN 29.7 pg (27.0-33.0); MEAN CORPUSCULAR HGB CONC 31.6 g/dl (32.0-36.5); PLATELET COUNT, AUTOMATED 212 10^3/uL (150-450); RED BLOOD COUNT 4.68 10^6/uL (4.00-5.40); WHITE BLOOD COUNT 7.3 10^3/uL (4.0-10.0)
[2022-03-01 13:45] LABS: ALBUMIN 3.9 GM/DL (3.2-5.2); ALT/SGPT 27 U/L (12-78); BILIRUBIN,TOTAL 0.4 MG/DL (0.2-1.0); BLOOD UREA NITROGEN 19 MG/DL (7-18); CALCIUM LEVEL 10.3 MG/DL (8.8-10.2); CARBON DIOXIDE LEVEL 31 MEQ/L (21-32); CHLORIDE LEVEL 104 MEQ/L (98-107); CHOLESTEROL LEVEL 171 MG/DL (<200); CHOLESTEROL RISK RATIO 2.758 (<5); CREATININE FOR GFR 0.95 MG/DL (0.55-1.30); FERRITIN 45 NG/ML (8-252); FREE T4 1.11 NG/DL (0.76-1.46); GLOMERULAR FILTRATION RATE > 60.0 (>39); GLUCOSE, FASTING 147 MG/DL (70-100); HDL CHOLESTEROL 62 MG/DL (>40); IRON (FE) 63 UG/DL (50-170); LDL CHOLESTEROL 80 MG/DL (<100); NON-HDL-C 109 MG/DL; PERCENT SATURATION 15.2 % (13.2-45.0); POTASSIUM SERUM 4.4 MEQ/L (3.5-5.1); SODIUM LEVEL 138 MEQ/L (136-145); TOTAL IRON BINDING CAPACITY 414 UG/DL (250-450); TOTAL PROTEIN 7.1 GM/DL (6.4-8.2); TRIGLYCERIDES LEVEL 145 MG/DL (<150)
[2022-03-01 16:07] LABS: HEMOGLOBIN A1c 6.6 %
== END ==
LOC: M SFHCADAM 10:25
PROVIDERS: ATTEND Family Medicine
DX: I10 Essential (primary) hypertension (principal); E11.40 Type 2 diabetes mellitus with diabetic neuropathy, unspecified; D50.0 Iron deficiency anemia secondary to blood loss (chronic); E03.9 Hypothyroidism, unspecified

== ENCOUNTER → 2022-03-22 | Outpatient (CLI) | payer MEDICARE ==
[~2022-03-22] MED LIST changes: +ISOVUE-370 76% 100ML VIAL As Ordered ONE
== END ==
LOC: M RAD 10:08
PROVIDERS: ATTEND Family Medicine
DX: I71.2 Thoracic aortic aneurysm, without rupture (principal); K44.9 Diaphragmatic hernia without obstruction or gangrene
CPT/HCPCS: 71275; Q9967

== ENCOUNTER → 2022-03-23 | Outpatient (CLI) | payer MEDICARE ==
[~2022-03-23] MED LIST changes: -ISOVUE-370 76% 100ML VIAL As Ordered ONE
== END ==
LOC: M PAIN 14:30
PROVIDERS: ATTEND Nurse Practitioner Family
DX: M96.1 Postlaminectomy syndrome, not elsewhere classified (principal); I12.9 Hypertensive chronic kidney disease with stage 1 through stage 4 chronic kidney disease, or unspecified chronic kidney disease; E11.22 Type 2 diabetes mellitus with diabetic chronic kidney disease; M79.7 Fibromyalgia; M19.90 Unspecified osteoarthritis, unspecified site; I50.32 Chronic diastolic (congestive) heart failure; F32.A Depression, unspecified; N18.2 Chronic kidney disease, stage 2 (mild); R32 Unspecified urinary incontinence; K44.9 Diaphragmatic hernia without obstruction or gangrene; K29.50 Unspecified chronic gastritis without bleeding; G47.33 Obstructive sleep apnea (adult) (pediatric); D50.9 Iron deficiency anemia, unspecified; E02 Subclinical iodine-deficiency hypothyroidism; M54.50 Low back pain, unspecified; M48.061 Spinal stenosis, lumbar region without neurogenic claudication; I71.2 Thoracic aortic aneurysm, without rupture; Z79.891 Long term (current) use of opiate analgesic; Z79.84 Long term (current) use of oral hypoglycemic drugs; Z79.899 Other long term (current) drug therapy; Z88.2 Allergy status to sulfonamides; Z91.013 Allergy to seafood

== ENCOUNTER → 2022-07-28 | Outpatient (REF) | payer MEDICARE ==
[2022-07-28 12:57] LABS: BASO # 0.1 10^3/uL (0.0-0.2); BASO % 0.6 % (0.0-1.0); EOS # 0.2 10^3/uL (0.0-0.5); EOS % 2.2 % (0.0-3.0); HEMATOCRIT 45.5 % (36.0-47.0); HEMOGLOBIN 14.9 g/dl (12.0-15.5); LYMPH # 2.3 10^3/uL (1.5-5.0); LYMPH % 28.3 % (24.0-44.0); MEAN CORPUSCULAR HEMOGLOBIN 29.6 pg (27.0-33.0); MEAN CORPUSCULAR HGB CONC 32.7 g/dl (32.0-36.5); MEAN CORPUSCULAR VOLUME 90.3 fl (80.0-96.0); MONO # 0.8 10^3/uL (0.0-0.8); MONO % 9.6 % (2.0-8.0); NEUTROPHILS # 4.9 10^3/uL (1.5-8.5); NEUTROPHILS % 59.1 % (36.0-66.0); PLATELET COUNT, AUTOMATED 223 10^3/uL (150-450); RED BLOOD COUNT 5.04 10^6/uL (4.00-5.40); WHITE BLOOD COUNT 8.2 10^3/uL (4.0-10.0)
[2022-07-28 13:10] LABS: INR 1.02; PROTHROMBIN TIME 13.6 SECONDS (12.5-14.5)
[2022-07-28 13:11] LABS: PARTIAL THROMBOPLASTIN TIME 30.5 SECONDS (24.8-34.2)
[2022-07-28 13:26] LABS: CALCIUM LEVEL 10.4 MG/DL (8.3-10.6); CREATININE FOR GFR 0.98 MG/DL (0.55-1.30); GLOMERULAR FILTRATION RATE 58.3 (>39); POTASSIUM SERUM 4.6 MMOL/L (3.5-5.1)
[2022-07-28 15:18] LABS: HEMOGLOBIN A1c 6.4 % (4.0-6.0)
== END ==
LOC: M SFHCADAM 10:02
PROVIDERS: ATTEND Family Medicine
DX: Z01.818 Encounter for other preprocedural examination (principal); E11.40 Type 2 diabetes mellitus with diabetic neuropathy, unspecified; D50.9 Iron deficiency anemia, unspecified

== ENCOUNTER → 2022-08-15 | Outpatient (CLI) | payer MEDICARE | LOC: M PAIN 13:45 | PROVIDERS: ATTEND Nurse Practitioner Family | DX: M96.1 Postlaminectomy syndrome, not elsewhere classified (principal); I13.0 Hypertensive heart and chronic kidney disease with heart failure and stage 1 through stage 4 chronic kidney disease, or unspecified chronic kidney disease; E11.22 Type 2 diabetes mellitus with diabetic chronic kidney disease; I50.32 Chronic diastolic (congestive) heart failure; N18.2 Chronic kidney disease, stage 2 (mild); F32.A Depression, unspecified; R32 Unspecified urinary incontinence; G47.33 Obstructive sleep apnea (adult) (pediatric); E02 Subclinical iodine-deficiency hypothyroidism; M54.50 Low back pain, unspecified; M48.061 Spinal stenosis, lumbar region without neurogenic claudication; Z79.84 Long term (current) use of oral hypoglycemic drugs; Z79.891 Long term (current) use of opiate analgesic; Z79.899 Other long term (current) drug therapy; Z88.2 Allergy status to sulfonamides; Z88.7 Allergy status to serum and vaccine; Z91.013 Allergy to seafood ==

== ENCOUNTER → 2022-10-19 | Outpatient (REF) | payer MEDICARE ==
[2022-10-19 17:29] LABS: BASO # 0.1 10^3/uL (0.0-0.2); BASO % 0.8 % (0.0-1.0); EOS # 2.6 10^3/uL (0.0-0.5); HEMATOCRIT 47.6 % (36.0-47.0); HEMOGLOBIN 15.2 g/dl (12.0-15.5); LYMPH # 3.4 10^3/uL (1.5-5.0); LYMPH % 26.1 % (24.0-44.0); MEAN CORPUSCULAR HEMOGLOBIN 29.1 pg (27.0-33.0); MEAN CORPUSCULAR HGB CONC 31.9 g/dl (32.0-36.5); MONO % 7.8 % (2.0-8.0); NEUTROPHILS % 45.1 % (36.0-66.0); PLATELET COUNT, AUTOMATED 225 10^3/uL (150-450); RED BLOOD COUNT 5.23 10^6/uL (4.00-5.40); THYROID STIMULATING HORMONE 0.862 uIU/ML (0.55-4.78); WHITE BLOOD COUNT 13.2 10^3/uL (4.0-10.0)
[2022-10-19 17:30] LABS: ALBUMIN 3.9 G/DL (3.2-5.2); BILIRUBIN,TOTAL 0.4 MG/DL (0.3-1.2); CALCIUM LEVEL 10.1 MG/DL (8.3-10.6); CHOLESTEROL RISK RATIO 2.95 (<5); CREATININE FOR GFR 1.12 MG/DL (0.55-1.30); GLOMERULAR FILTRATION RATE 49.8 (>32); HDL CHOLESTEROL 52.5 MG/DL (>40); LDL CHOLESTEROL 72.7 MG/DL (<100); NON-HDL-C 102.5 MG/DL; POTASSIUM SERUM 3.8 MMOL/L (3.5-5.1)
[2022-10-19 17:31] LABS: FREE T4 1.35 NG/DL (0.89-1.76)
[2022-10-19 17:58] LABS: HEMOGLOBIN A1c 6.6 % (4.0-6.0)
== END ==
LOC: M SFHCADAM 11:55
PROVIDERS: ATTEND Family Medicine
DX: E11.40 Type 2 diabetes mellitus with diabetic neuropathy, unspecified (principal); I10 Essential (primary) hypertension; F33.1 Major depressive disorder, recurrent, moderate; E03.9 Hypothyroidism, unspecified

== ENCOUNTER → 2022-10-24 | Outpatient (CLI) | payer MEDICARE ==
[~2022-10-24] MED LIST changes: -LOSA100T45 PO; +LOSA100T46 PO
== END ==
LOC: M PAIN 11:15
PROVIDERS: ATTEND Nurse Practitioner Family
DX: M96.1 Postlaminectomy syndrome, not elsewhere classified (principal); G89.29 Other chronic pain; E11.9 Type 2 diabetes mellitus without complications; I10 Essential (primary) hypertension; M79.7 Fibromyalgia; G47.33 Obstructive sleep apnea (adult) (pediatric); Z86.59 Personal history of other mental and behavioral disorders; Z88.2 Allergy status to sulfonamides; Z88.7 Allergy status to serum and vaccine; Z91.013 Allergy to seafood; Z79.84 Long term (current) use of oral hypoglycemic drugs; Z79.899 Other long term (current) drug therapy

== ENCOUNTER → 2022-12-23 | Outpatient (CLI) | payer MEDICARE ==
[2022-12-23 18:33] LABS: CREATININE FOR GFR 1.34 MG/DL (0.55-1.30); GLOMERULAR FILTRATION RATE 40.5 (>32)
== END ==
LOC: M PLALAB 16:38
PROVIDERS: ATTEND Nurse Practitioner Family
DX: M96.1 Postlaminectomy syndrome, not elsewhere classified (principal)

== ENCOUNTER 2023-06-06 14:54 | Emergency (ER) | payer MEDICARE ==
[~2023-06-06] VITALS: Ht 157.5 cm; Wt 74.1 kg
[2023-06-06] MEDS ORDERED: NS 1,000 ML IV SCH (15:10)
[2023-06-06 15:29] LABS: VENOUS BASE EXCESS 3.4 (-2.0-2.0); VENOUS HCO3 30.1 MMOL/L (23.0-27.0); VENOUS O2 SATURATION 51.5 % (60.0-80.0); VENOUS PARTIAL PRESSURE CO2 54.5 mmHg (38.0-50.0); VENOUS PARTIAL PRESSURE O2 27.7 mmHg (30.0-50.0); VENOUS STANDARD HCO3 26.3 MMOL/L; VENOUS TOTAL CO2 31.8 MMOL/L (24.0-28.0)
[2023-06-06 15:59] LABS: BASO # 0.1 10^3/uL (0.0-0.2); BASO % 0.8 % (0.0-1.0); EOS # 0.6 10^3/uL (0.0-0.5); EOS % 7.8 % (0.0-3.0); HEMATOCRIT 40.2 % (36.0-47.0); LYMPH # 1.5 10^3/uL (1.5-5.0); LYMPH % 20.2 % (24.0-44.0); MEAN CORPUSCULAR HEMOGLOBIN 29.3 pg (27.0-33.0); MEAN CORPUSCULAR HGB CONC 32.3 g/dl (32.0-36.5); MEAN CORPUSCULAR VOLUME 90.5 fl (80.0-96.0); MONO # 0.9 10^3/uL (0.0-0.8); MONO % 11.2 % (2.0-8.0); NEUTROPHILS # 4.5 10^3/uL (1.5-8.5); NEUTROPHILS % 59.7 % (36.0-66.0); PLATELET COUNT, AUTOMATED 220 10^3/uL (150-450); RED BLOOD COUNT 4.44 10^6/uL (4.00-5.40); WHITE BLOOD COUNT 7.6 10^3/uL (4.0-10.0)
[2023-06-06 16:00] LABS: OSMOLALITY SERUM 288 MOSM/KG (280-301)
[2023-06-06 16:05] LABS: ALKALINE PHOSPHATASE 124 U/L (46-116); ALT/SGPT 19 U/L (7.0-40); AST/SGOT 25 U/L (<34); BILIRUBIN,DIRECT 0.1 MG/DL (<0.4); BILIRUBIN,TOTAL 0.3 MG/DL (0.3-1.2); BLOOD UREA NITROGEN 15 MG/DL (9-23); CALCIUM LEVEL 9.5 MG/DL (8.3-10.6); CARBON DIOXIDE LEVEL 30 MMOL/L (20-31); CHLORIDE LEVEL 102 MMOL/L (98-107); CREATININE FOR GFR 0.69 MG/DL (0.55-1.30); GLOMERULAR FILTRATION RATE > 60.0 (>32); GLUCOSE, FASTING 117 MG/DL (74-106); POTASSIUM SERUM 4.4 MMOL/L (3.5-5.1); SODIUM LEVEL 137 MMOL/L (136-145); TOTAL PROTEIN 6.2 G/DL (5.7-8.2)
[2023-06-06 16:08] LABS: THYROID STIMULATING HORMONE 0.955 uIU/ML (0.55-4.78)
[2023-06-06] MEDS ORDERED: FLUO40CA (16:43)
[2023-06-06 20:56] VITALS: BP 130/74; TEMP 98.8; O2SAT 98
== END 2023-06-06 20:59 | disposition home or self-care (01) ==
LOC: EDBD 14:54 → M ED 14:54
DX: R53.83 Other fatigue (principal); E11.9 Type 2 diabetes mellitus without complications; I10 Essential (primary) hypertension; N18.2 Chronic kidney disease, stage 2 (mild); E03.9 Hypothyroidism, unspecified; G47.33 Obstructive sleep apnea (adult) (pediatric); Z88.2 Allergy status to sulfonamides; Z88.5 Allergy status to narcotic agent; Z91.013 Allergy to seafood; Z79.811 Long term (current) use of aromatase inhibitors; Z79.4 Long term (current) use of insulin; Z79.891 Long term (current) use of opiate analgesic; Z79.899 Other long term (current) drug therapy

== ENCOUNTER → 2023-06-28 | Outpatient (CLI) | payer MEDICARE ==
[~2023-06-28] MED LIST changes: +FLUO40CA
[2023-06-28 16:07] LABS: HEMATOCRIT 39.6 % (36.0-47.0); HEMOGLOBIN 12.6 g/dl (12.0-15.5); MEAN CORPUSCULAR HEMOGLOBIN 28.3 pg (27.0-33.0); MEAN CORPUSCULAR HGB CONC 31.8 g/dl (32.0-36.5); MEAN CORPUSCULAR VOLUME 88.8 fl (80.0-96.0); PLATELET COUNT, AUTOMATED 261 10^3/uL (150-450); RED BLOOD COUNT 4.46 10^6/uL (4.00-5.40); WHITE BLOOD COUNT 8.7 10^3/uL (4.0-10.0)
[2023-06-28 16:29] LABS: CREATININE, URINE 113.7 MG/DL
[2023-06-28 16:30] LABS: MALB URINE SIEMENS < 3.0 MG/L; MAU/CREAT RATIO 2.6 MCG/MG (0.0-30.0)
[2023-06-28 16:33] LABS: IRON (FE) 47 UG/DL (50-170); TOTAL IRON BINDING CAPACITY 277 UG/DL (250-425)
[2023-06-28 16:34] LABS: ALKALINE PHOSPHATASE 124 U/L (46-116); ALT/SGPT 20 U/L (7.0-40); AST/SGOT 24 U/L (<34); BILIRUBIN,TOTAL 0.3 MG/DL (0.3-1.2); BLOOD UREA NITROGEN 26 MG/DL (9-23); CALCIUM LEVEL 9.7 MG/DL (8.3-10.6); CARBON DIOXIDE LEVEL 30 MMOL/L (20-31); CHLORIDE LEVEL 106 MMOL/L (98-107); CHOLESTEROL LEVEL 136 MG/DL (<200); CHOLESTEROL RISK RATIO 2.74 (<5); CREATININE FOR GFR 0.79 MG/DL (0.55-1.30); GLOMERULAR FILTRATION RATE > 60.0 (>32); GLUCOSE, FASTING 117 MG/DL (74-106); HDL CHOLESTEROL 49.6 MG/DL (>40); LDL CHOLESTEROL 65.8 MG/DL (<100); NON-HDL-C 86.4 MG/DL; POTASSIUM SERUM 5.1 MMOL/L (3.5-5.1); SODIUM LEVEL 139 MMOL/L (136-145); TRIGLYCERIDES LEVEL 103 MG/DL (<150)
[2023-06-28 16:35] LABS: FERRITIN 131.2 NG/ML (7.3-270.7); FREE T4 1.17 NG/DL (0.89-1.76); THYROID STIMULATING HORMONE 1.951 uIU/ML (0.55-4.78)
[2023-06-28 16:36] LABS: FOLATE 13.63 NG/ML (>5.4); VITAMIN B12 LEVEL 1326 PG/ML (211-911)
[2023-06-28 16:56] LABS: HEMOGLOBIN A1c 6.8 % (4.0-6.0)
== END ==
LOC: M PLALAB 11:50
PROVIDERS: ATTEND Family Medicine
DX: E11.40 Type 2 diabetes mellitus with diabetic neuropathy, unspecified (principal); D50.9 Iron deficiency anemia, unspecified; E03.9 Hypothyroidism, unspecified; R53.83 Other fatigue

== ENCOUNTER → 2023-08-04 | Outpatient (CLI) | payer MEDICARE | LOC: M PAIN 11:30 | PROVIDERS: ATTEND Nurse Practitioner Family | DX: M47.816 Spondylosis without myelopathy or radiculopathy, lumbar region (principal); Z79.891 Long term (current) use of opiate analgesic; G89.29 Other chronic pain; I13.0 Hypertensive heart and chronic kidney disease with heart failure and stage 1 through stage 4 chronic kidney disease, or unspecified chronic kidney disease; E11.9 Type 2 diabetes mellitus without complications; M79.7 Fibromyalgia; I50.32 Chronic diastolic (congestive) heart failure; F32.A Depression, unspecified; N18.2 Chronic kidney disease, stage 2 (mild); G47.33 Obstructive sleep apnea (adult) (pediatric); D50.9 Iron deficiency anemia, unspecified; M54.50 Low back pain, unspecified; M48.061 Spinal stenosis, lumbar region without neurogenic claudication; M48.02 Spinal stenosis, cervical region; Z79.84 Long term (current) use of oral hypoglycemic drugs; Z79.899 Other long term (current) drug therapy; Z88.2 Allergy status to sulfonamides; Z88.7 Allergy status to serum and vaccine; Z91.013 Allergy to seafood ==

== ENCOUNTER → 2024-02-05 | Outpatient (REF) | payer MEDICARE | LOC: M SFHCADAM 12:49 | PROVIDERS: ATTEND Physician Assistant | DX: N39.44 Nocturnal enuresis (principal) ==

== ENCOUNTER → 2024-03-13 | Outpatient (REF) | payer MEDICARE ==
[~2024-03-13] MED LIST changes: -BYST10TA2 PO; +BYST1TAB3 PO
[2024-03-13 19:07] LABS: HEMATOCRIT 37.9 % (36.0-47.0); HEMOGLOBIN 12.4 g/dl (12.0-15.5); MEAN CORPUSCULAR HGB CONC 32.7 g/dl (32.0-36.5); MEAN CORPUSCULAR VOLUME 88.6 fl (80.0-96.0); PLATELET COUNT, AUTOMATED 148 10^3/uL (150-450); RED BLOOD COUNT 4.28 10^6/uL (4.00-5.40); WHITE BLOOD COUNT 6.2 10^3/uL (4.0-10.0)
[2024-03-13 19:30] LABS: HEMOGLOBIN A1c 6.5 % (4.0-6.0)
[2024-03-13 19:39] LABS: ALBUMIN 3.4 G/DL (3.2-5.2); ALKALINE PHOSPHATASE 162 U/L (46-116); ALT/SGPT 24 U/L (7.0-40); AST/SGOT 32 U/L (<34); BILIRUBIN,TOTAL 0.5 MG/DL (0.3-1.2); BLOOD UREA NITROGEN 11 MG/DL (9-23); CALCIUM LEVEL 10.3 MG/DL (8.3-10.6); CARBON DIOXIDE LEVEL 30 MMOL/L (20-31); CHLORIDE LEVEL 107 MMOL/L (98-107); CHOLESTEROL LEVEL 150 MG/DL (<200); CHOLESTEROL RISK RATIO 2.98 (<5); CREATININE FOR GFR 0.79 MG/DL (0.55-1.30); GLOMERULAR FILTRATION RATE > 60.0 (>32); GLUCOSE, FASTING 114 MG/DL (74-106); HDL CHOLESTEROL 50.2 MG/DL (>40); LDL CHOLESTEROL 84.2 MG/DL (<100); NON-HDL-C 99.8 MG/DL; POTASSIUM SERUM 4.2 MMOL/L (3.5-5.1); SODIUM LEVEL 141 MMOL/L (136-145); TOTAL PROTEIN 6.3 G/DL (5.7-8.2); TRIGLYCERIDES LEVEL 78 MG/DL (<150)
[2024-03-13 19:42] LABS: FREE T4 1.32 NG/DL (0.89-1.76); THYROID STIMULATING HORMONE 0.968 uIU/ML (0.55-4.78)
== END ==
LOC: M SFHCADAM 13:30
PROVIDERS: ATTEND Family Medicine
DX: I11.0 Hypertensive heart disease with heart failure (principal); E11.40 Type 2 diabetes mellitus with diabetic neuropathy, unspecified; I50.30 Unspecified diastolic (congestive) heart failure; E03.9 Hypothyroidism, unspecified; K25.7 Chronic gastric ulcer without hemorrhage or perforation

== ENCOUNTER 2024-05-09 03:42 | Emergency (ER) | payer MEDICARE ==
[~2024-05-09] VITALS: Ht 157.5 cm; Wt 68.2 kg
[~2024-05-09 03:42] MED LIST changes: -CYCL5TAB PO; +CYCL5TAB4 PO; -FLUO40CA; +FLUO40CA PO; -FURO40TA2; +FURO40TA2 PO; +GABA-1172 PO; -GABA-282 PO; -METF500T13; +METF500T13 PO
[2024-05-09 05:25] LABS: KETONE, URINE AUTO RFX NEGATIVE (NEGATIVE); MUCUS, URINE RFX SMALL (NEGATIVE); NITRITE, URINE AUTO RFX NEGATIVE (NEGATIVE); RBC, URINE AUTO RFX 0 /HPF (0-3); SQUAM EPITHELIAL CELL UR AURFX 4 /HPF (0-6); WBC, URINE AUTO RFX 7 /HPF (0-3)
[2024-05-09 05:29] LABS: BASO # 0.1 10^3/uL (0.0-0.2); BASO % 0.6 % (0.0-1.0); EOS # 0.2 10^3/uL (0.0-0.5); EOS % 2.6 % (0.0-3.0); HEMATOCRIT 37.9 % (36.0-47.0); HEMOGLOBIN 12.3 g/dl (12.0-15.5); LYMPH # 1.4 10^3/uL (1.5-5.0); LYMPH % 17.3 % (24.0-44.0); MEAN CORPUSCULAR HEMOGLOBIN 29.1 pg (27.0-33.0); MEAN CORPUSCULAR HGB CONC 32.5 g/dl (32.0-36.5); MEAN CORPUSCULAR VOLUME 89.8 fl (80.0-96.0); MONO # 0.7 10^3/uL (0.0-0.8); MONO % 8.2 % (2.0-8.0); NEUTROPHILS # 5.6 10^3/uL (1.5-8.5); PLATELET COUNT, AUTOMATED 173 10^3/uL (150-450); RED BLOOD COUNT 4.22 10^6/uL (4.00-5.40); WHITE BLOOD COUNT 7.9 10^3/uL (4.0-10.0)
[2024-05-09 05:37] LABS: LEUKOCYTE ESTERASE UR AUTO RFX 1+ (NEGATIVE)
[2024-05-09 05:54] LABS: ALBUMIN 3.5 G/DL (3.2-5.2); ALKALINE PHOSPHATASE 136 U/L (35-104); ALT/SGPT 17 U/L (7.0-40); AST/SGOT 22 U/L (<34); BILIRUBIN,DIRECT 0.2 MG/DL (<0.4); BILIRUBIN,TOTAL 0.5 MG/DL (0.3-1.2); BLOOD UREA NITROGEN 13 MG/DL (9-23); CALCIUM LEVEL 9.7 MG/DL (8.3-10.6); CARBON DIOXIDE LEVEL 28 MMOL/L (20-31); CHLORIDE LEVEL 107 MMOL/L (98-107); CREATININE FOR GFR 0.65 MG/DL (0.55-1.30); GLOMERULAR FILTRATION RATE > 60.0 (>32); GLUCOSE, FASTING 112 MG/DL (74-106); POTASSIUM SERUM 3.4 MMOL/L (3.5-5.1); SODIUM LEVEL 141 MMOL/L (136-145); TOTAL PROTEIN 6.6 G/DL (5.7-8.2)
[2024-05-09 05:57] LABS: THYROID STIMULATING HORMONE 2.339 uIU/ML (0.55-4.78)
[2024-05-09] MEDS: PREGABALIN 100 MG CAP (LYRICA) PO SCH (09:00)
[2024-05-09 09:23] LABS: AMPHETAMINES LEVEL URINE NEGATIVE (NEGATIVE); BARBITURATES URINE NEGATIVE (NEGATIVE); CANNABINOIDS URINE NEGATIVE (NEGATIVE); COCAINE METABOLITE URINE NEGATIVE (NEGATIVE); METHADONE URINE NEGATIVE (NEGATIVE); OPIATES URINE NEGATIVE (NEGATIVE); PHENCYCLIDINE URINE NEGATIVE (NEGATIVE)
[2024-05-09 09:24] LABS: BENZODIAZEPINES URINE NEGATIVE (NEGATIVE)
[2024-05-09] MEDS: PREGABALIN 100 MG CAP (LYRICA) PO ONE (09:31)
[2024-05-09] MEDS ORDERED: GLUCOSE 4 GM CHEW PO PRN (11:25)
[2024-05-09] MEDS ORDERED: MOM 30ML SUSPENSION UDC PO PRN (11:25)
[2024-05-09] MEDS ORDERED: MAALOX 30 ML SUSP *UDC PO PRN (11:25)
[2024-05-09] MEDS ORDERED: GLUCAGON INJ 1MG VIAL SC PRN (11:25)
[2024-05-09] MEDS ORDERED: DEXTROSE 50% 50ML SYRINGE IV PRN (11:25)
[2024-05-09 11:59] LABS: PROCALCITONIN 0.06 ng/ml
[2024-05-09] MEDS ORDERED: HYDR-3363 PO (12:44)
[2024-05-09] MEDS ORDERED: SOLI10TA PO (12:44)
[2024-05-09] MEDS ORDERED: SERT50TA29 PO (12:44)
[2024-05-09] MEDS ORDERED: IRBE150T27 PO (12:44)
[2024-05-09] MEDS ORDERED: HOME MED LIST COMPLETE! XX SCH (12:45)
[2024-05-09] MEDS: POTASSIUM CHLORIDE 10MEQ SR TABLET PO ONE (13:01)
[2024-05-09] MEDS: INSULIN LISPRO (NovoLOG) PER UNIT SC SCH ×2 (13:01→20:59)
[2024-05-09] MEDS: FUROSEMIDE 40 MG TAB PO SCH (14:26)
[2024-05-09] MEDS: FLUoxetine 20MG CAP PO SCH (14:26)
[2024-05-09] MEDS: IRBESARTAN 150MG TAB PO SCH (16:20)
[2024-05-09] MEDS: ACETAMINOPHEN 325 MG TAB PO PRN (18:17)
[2024-05-09] MEDS: BREXPIPRAZOLE 0.5MG TABLET (REXULTI) PO SCH (19:06)
[2024-05-09] MEDS: DOCUSATE SODIUM 100MG CAPSULE PO SCH (20:59)
[2024-05-10 06:35] LABS: BASO # 0.1 10^3/uL (0.0-0.2); BASO % 1.1 % (0.0-1.0); EOS # 0.4 10^3/uL (0.0-0.5); EOS % 6.1 % (0.0-3.0); HEMATOCRIT 35.7 % (36.0-47.0); HEMOGLOBIN 11.8 g/dl (12.0-15.5); LYMPH # 1.5 10^3/uL (1.5-5.0); LYMPH % 24.1 % (24.0-44.0); MEAN CORPUSCULAR HEMOGLOBIN 29.9 pg (27.0-33.0); MEAN CORPUSCULAR HGB CONC 33.1 g/dl (32.0-36.5); MEAN CORPUSCULAR VOLUME 90.4 fl (80.0-96.0); MONO # 0.7 10^3/uL (0.0-0.8); MONO % 10.5 % (2.0-8.0); NEUTROPHILS # 3.7 10^3/uL (1.5-8.5); PLATELET COUNT, AUTOMATED 152 10^3/uL (150-450); RED BLOOD COUNT 3.95 10^6/uL (4.00-5.40); WHITE BLOOD COUNT 6.4 10^3/uL (4.0-10.0)
[2024-05-10 07:05] LABS: BLOOD UREA NITROGEN 14 MG/DL (9-23); CALCIUM LEVEL 9.7 MG/DL (8.3-10.6); CARBON DIOXIDE LEVEL 29 MMOL/L (20-31); CHLORIDE LEVEL 107 MMOL/L (98-107); CREATININE FOR GFR 0.79 MG/DL (0.55-1.30); GLOMERULAR FILTRATION RATE > 60.0 (>32); GLUCOSE, FASTING 98 MG/DL (74-106); MAGNESIUM LEVEL 1.6 MG/DL (1.8-2.4); POTASSIUM SERUM 4.2 MMOL/L (3.5-5.1); SODIUM LEVEL 141 MMOL/L (136-145)
[2024-05-10 07:50] VITALS: TEMP 98
[2024-05-10] MEDS: MAGNESIUM OXIDE 400MG TAB (MAG-OX) PO ONE (08:02)
[2024-05-10] MEDS: ENOXAPARIN 40MG/0.4ML SYRINGE (J1650 PER 10MG) SC SCH (08:03)
[2024-05-10] MEDS: FLUoxetine 20MG CAP PO SCH (08:05)
[2024-05-10] MEDS ORDERED: PREG100CA PO (10:08)
[2024-05-10] MEDS ORDERED: REXU1TAB PO (10:08)
[2024-05-10] MEDS ORDERED: FURO20TA2 PO (10:08)
[2024-05-10] MEDS ORDERED: FLUO-365 PO (10:08)
[2024-05-10] MEDS: FLUBLOK(EGGFREE) TRIVAL(24-25) VACCINE PF 0.5ML SYRINGE 18YRS & OLDER IM.IMMUN ONE (14:31)
[2024-05-10] MEDS: PREVNAR-20 VACCINE 0.5ML SYRINGE IM.IMMUN ONE (14:33)
[2024-05-11 08:32] VITALS: BP 126/84
[2024-05-11] MEDS ORDERED: FLUBLOK(EGGFREE) TRIVAL(24-25) VACCINE PF 0.5ML SYRINGE 18YRS & OLDER IM.IMMUN ONE (09:00)
[2024-05-11] MEDS ORDERED: PREVNAR-20 VACCINE 0.5ML SYRINGE IM.IMMUN ONE (09:00)
[2024-05-11] MEDS ORDERED: REXU1TAB PO (09:18)
[2024-05-11 09:40] VITALS: BP 102/73
== END 2024-05-11 09:55 | disposition home or self-care (01) ==
LOC: M ED 03:42
DX: R44.1 Visual hallucinations (principal); F19.130 Other psychoactive substance abuse with withdrawal, uncomplicated; E11.9 Type 2 diabetes mellitus without complications; I50.22 Chronic systolic (congestive) heart failure; I11.0 Hypertensive heart disease with heart failure; M79.7 Fibromyalgia; Z88.2 Allergy status to sulfonamides; Z88.5 Allergy status to narcotic agent; Z91.013 Allergy to seafood; Z23 Encounter for immunization
CPT/HCPCS: 36415; 70450; 71046; 80048; 80076; 80307; 81001; 83735; 84145; 84443; 85025; 87040; 87086; 87486; 87581; 87633; 87798; 90673; 90677; 93005; 93041; 94760; 96372; 97116; 97161; 99285; G0008; G0009; J1650; J1815

== ENCOUNTER 2024-05-28 13:47 | Observation (INO) | payer MEDICARE ==
[~2024-05-28] VITALS: Ht 157.5 cm; Wt 67.7 kg
[~2024-05-28 13:47] MED LIST changes: +FLUO-365 PO; +FURO20TA2 PO; +IRBE150T27 PO; +REXU1TAB PO; +SERT50TA29 PO; +SOLI10TA PO
[2024-05-28 15:27] LABS: BASO # 0.1 10^3/uL (0.0-0.2); BASO % 0.8 % (0.0-1.0); EOS # 0.3 10^3/uL (0.0-0.5); EOS % 4.3 % (0.0-3.0); HEMATOCRIT 37.4 % (36.0-47.0); HEMOGLOBIN 12.3 g/dl (12.0-15.5); LYMPH # 1.7 10^3/uL (1.5-5.0); LYMPH % 25.4 % (24.0-44.0); MEAN CORPUSCULAR HEMOGLOBIN 29.4 pg (27.0-33.0); MEAN CORPUSCULAR HGB CONC 32.9 g/dl (32.0-36.5); MEAN CORPUSCULAR VOLUME 89.3 fl (80.0-96.0); MONO # 0.6 10^3/uL (0.0-0.8); NEUTROPHILS % 60.3 % (36.0-66.0); PLATELET COUNT, AUTOMATED 168 10^3/uL (150-450); RED BLOOD COUNT 4.19 10^6/uL (4.00-5.40); WHITE BLOOD COUNT 6.6 10^3/uL (4.0-10.0)
[2024-05-28 15:32] LABS: KETONE, URINE AUTO RFX NEGATIVE (NEGATIVE); LEUKOCYTE ESTERASE UR AUTO RFX NEGATIVE (NEGATIVE); MUCUS, URINE RFX SMALL (NEGATIVE); NITRITE, URINE AUTO RFX NEGATIVE (NEGATIVE); RBC, URINE AUTO RFX 1 /HPF (0-3); SQUAM EPITHELIAL CELL UR AURFX 1 /HPF (0-6); WBC, URINE AUTO RFX 1 /HPF (0-3)
[2024-05-28 15:55] LABS: BLOOD UREA NITROGEN 16 MG/DL (9-23); CALCIUM LEVEL 10.1 MG/DL (8.3-10.6); CARBON DIOXIDE LEVEL 28 MMOL/L (20-31); CHLORIDE LEVEL 107 MMOL/L (98-107); CREATININE FOR GFR 0.76 MG/DL (0.55-1.30); GLOMERULAR FILTRATION RATE > 60.0 (>32); GLUCOSE, FASTING 104 MG/DL (74-106); POTASSIUM SERUM 4.2 MMOL/L (3.5-5.1); SODIUM LEVEL 141 MMOL/L (136-145)
[2024-05-28] MEDS ORDERED: RIVA1.5C23 PO (16:43)
[2024-05-28] MEDS ORDERED: REXU1TAB2 PO (16:43)
[2024-05-28] MEDS ORDERED: FLUO-96 PO (16:49)
[2024-05-28] MEDS ORDERED: HOME MED LIST COMPLETE! XX SCH ×2 (16:50→22:00)
[2024-05-29] MEDS: BREXPIPRAZOLE 0.5MG TABLET (REXULTI) PO SCH (01:08)
[2024-05-29] MEDS: metFORMIN (GLUCOPHAGE) 500MG TAB PO SCH (01:08)
[2024-05-29] MEDS: PREGABALIN 100 MG CAP (LYRICA) PO SCH (01:09)
[2024-05-29] MEDS: FLUoxetine 20MG CAP PO SCH (08:31)
[2024-05-29] MEDS: IRBESARTAN 150MG TAB PO SCH (09:00)
[2024-05-29] MEDS: ACETAMINOPHEN 325 MG TAB PO PRN (13:57)
[2024-05-29 18:00] VITALS: BP 104/83; TEMP 97; O2SAT 96
[2024-05-29 20:26] VITALS: BP 107/82; TEMP 97.7; O2SAT 97
[2024-05-30] MEDS: DONEPEZIL 5 MG TAB PO SCH (08:55)
[2024-05-30 15:43] VITALS: BP 96/50; TEMP 97.8; O2SAT 95
[2024-05-30 17:59] VITALS: BP 102/64
[2024-05-31 04:30] VITALS: BP 108/60; TEMP 97.3; O2SAT 96
[2024-05-31] MEDS: POLYVINYL ALCOHOL OPHTH SOLN 15ML (LIQUITEARS) OU PRN (08:06)
[2024-06-01 04:20] VITALS: BP 113/69; TEMP 97.3; O2SAT 97
[2024-06-01] MEDS: DOCUSATE SODIUM 100MG CAPSULE PO PRN (08:20)
[2024-06-01] MEDS: MIRALAX *UNIT DOSE* 17GM PACKET PO PRN (08:20)
[2024-06-01] MEDS: RIVASTIGMINE 1.5 MG PO SCH (20:05)
[2024-06-02 05:35] VITALS: BP 117/70; TEMP 97.5; O2SAT 93
[2024-06-02] MEDS: SOLIFENACIN SUCCINATE 10 MG PO SCH (08:11)
[2024-06-03 04:00] VITALS: BP 117/71; TEMP 97.2; O2SAT 96
[2024-06-03 22:06] VITALS: BP 129/71; TEMP 97.5; O2SAT 96
[2024-06-03 23:01] LABS: BASO # 0.1 10^3/uL (0.0-0.2); BASO % 1.2 % (0.0-1.0); EOS # 0.5 10^3/uL (0.0-0.5); EOS % 6.7 % (0.0-3.0); HEMATOCRIT 35.7 % (36.0-47.0); HEMOGLOBIN 11.5 g/dl (12.0-15.5); LYMPH % 29.1 % (24.0-44.0); MEAN CORPUSCULAR HEMOGLOBIN 29.2 pg (27.0-33.0); MEAN CORPUSCULAR HGB CONC 32.2 g/dl (32.0-36.5); MEAN CORPUSCULAR VOLUME 90.6 fl (80.0-96.0); MONO # 0.6 10^3/uL (0.0-0.8); MONO % 8.5 % (2.0-8.0); NEUTROPHILS # 3.8 10^3/uL (1.5-8.5); NEUTROPHILS % 54.4 % (36.0-66.0); PLATELET COUNT, AUTOMATED 177 10^3/uL (150-450); RED BLOOD COUNT 3.94 10^6/uL (4.00-5.40); WHITE BLOOD COUNT 6.9 10^3/uL (4.0-10.0)
[2024-06-03 23:19] LABS: CK-MB VALUE MASS < 1.0 NG/ML (<3.6)
[2024-06-03 23:21] LABS: ALKALINE PHOSPHATASE 145 U/L (35-104); ALT/SGPT 19 U/L (7.0-40); AST/SGOT 19 U/L (<34); BILIRUBIN,TOTAL 0.2 MG/DL (0.3-1.2); BLOOD UREA NITROGEN 23 MG/DL (9-23); CALCIUM LEVEL 9.6 MG/DL (8.3-10.6); CARBON DIOXIDE LEVEL 26 MMOL/L (20-31); CHLORIDE LEVEL 108 MMOL/L (98-107); CPK CREATINE PHOSPHOKINASE 50 U/L (34-145); CREATININE FOR GFR 1.05 MG/DL (0.55-1.30); GLOMERULAR FILTRATION RATE 53.5 (>32); GLUCOSE, FASTING 150 MG/DL (74-106); MAGNESIUM LEVEL 1.5 MG/DL (1.8-2.4); POTASSIUM SERUM 4.6 MMOL/L (3.5-5.1); SODIUM LEVEL 143 MMOL/L (136-145); TOTAL PROTEIN 5.8 G/DL (5.7-8.2)
[2024-06-04] MEDS: MAGNESIUM OXIDE 400MG TAB (MAG-OX) PO ONE (01:21)
[2024-06-04 04:00] VITALS: BP 124/71; TEMP 97.5; O2SAT 97
[2024-06-04] MEDS: MAGNESIUM OXIDE 400MG TAB (MAG-OX) PO SCH (08:59)
[2024-06-05 04:00] VITALS: BP 133/78; TEMP 97.5; O2SAT 92
[2024-06-06 04:37] VITALS: BP 131/79; TEMP 97.2; O2SAT 97
[2024-06-07 04:10] VITALS: BP 131/79; TEMP 97.5; O2SAT 98
[2024-06-08 04:00] VITALS: BP 142/73; TEMP 97.7; O2SAT 98
[2024-06-09 04:00] VITALS: BP 138/83; TEMP 97.9; O2SAT 96
[2024-06-09] MEDS: RAMELTEON 8 MG TAB (ROZEREM) PO ONE (23:51)
[2024-06-10 04:00] VITALS: BP 125/74; TEMP 97.3; O2SAT 94
[2024-06-10] MEDS: RAMELTEON 8 MG TAB (ROZEREM) PO PRN (21:26)
[2024-06-11 03:13] VITALS: BP 120/67; TEMP 97.3; O2SAT 97
[2024-06-11 05:14] LABS: MEAN CORPUSCULAR HEMOGLOBIN 28.9 pg (27.0-33.0); MEAN CORPUSCULAR HGB CONC 32.4 g/dl (32.0-36.5); MEAN CORPUSCULAR VOLUME 89.5 fl (80.0-96.0); PLATELET COUNT, AUTOMATED 163 10^3/uL (150-450); WHITE BLOOD COUNT 5.4 10^3/uL (4.0-10.0)
[2024-06-11 05:39] LABS: BLOOD UREA NITROGEN 22 MG/DL (9-23); CALCIUM LEVEL 9.3 MG/DL (8.3-10.6); CARBON DIOXIDE LEVEL 28 MMOL/L (20-31); CHLORIDE LEVEL 108 MMOL/L (98-107); CREATININE FOR GFR 0.71 MG/DL (0.55-1.30); GLOMERULAR FILTRATION RATE > 60.0 (>32); GLUCOSE, FASTING 94 MG/DL (74-106); POTASSIUM SERUM 4.4 MMOL/L (3.5-5.1); SODIUM LEVEL 141 MMOL/L (136-145)
[2024-06-11] MEDS: LIDOCAINE 5% (LIDODERM) PATCH TD ONE (12:33)
[2024-06-12 04:00] VITALS: BP 129/84; TEMP 97.2; O2SAT 94
[2024-06-12] MEDS: LIDOCAINE 5% (LIDODERM) PATCH TD SCH (09:30)
[2024-06-13 04:45] VITALS: BP 106/71; TEMP 97.3; O2SAT 97
[2024-06-14 04:00] VITALS: BP 110/72; TEMP 97.2; O2SAT 97
[2024-06-15 04:45] VITALS: BP 140/75; TEMP 97.5; O2SAT 99
[2024-06-16 05:50] VITALS: BP 140/64; TEMP 97.5; O2SAT 96
[2024-06-17 04:00] VITALS: BP 129/83; TEMP 97.3; O2SAT 96
[2024-06-18 06:00] VITALS: BP 144/72; TEMP 97.3; O2SAT 99
[2024-06-19 05:00] VITALS: BP 158/89; TEMP 97.5; O2SAT 97
[2024-06-19] MEDS: INSULIN LISPRO (NovoLOG) PER UNIT SC SCH ×2 (12:00→21:44)
[2024-06-19] MEDS ORDERED: DEXTROSE 50% 50ML SYRINGE IV PRN (12:05)
[2024-06-19] MEDS ORDERED: GLUCAGON INJ 1MG VIAL SC PRN (12:05)
[2024-06-19] MEDS ORDERED: GLUCOSE 4 GM CHEW PO PRN (12:05)
[2024-06-20 04:00] VITALS: BP 111/52; TEMP 97; O2SAT 95
[2024-06-20] MEDS: ENOXAPARIN 40MG/0.4ML SYRINGE (J1650 PER 10MG) SC SCH (08:35)
[2024-06-21 04:00] VITALS: BP 138/97; TEMP 97.3; O2SAT 96
[2024-06-22 04:39] VITALS: BP 145/91; TEMP 97.3; O2SAT 96
[2024-06-23 04:30] VITALS: BP 149/87; TEMP 97.5; O2SAT 98
[2024-06-24 04:33] VITALS: BP 115/80; TEMP 97.3; O2SAT 96
[2024-06-25 04:00] VITALS: BP 125/74; TEMP 97.2; O2SAT 95
[2024-06-26 05:30] VITALS: BP 137/95; TEMP 97.7; O2SAT 97
[2024-06-27 04:00] VITALS: BP 126/89; TEMP 97.7; O2SAT 94
[2024-06-28 04:00] VITALS: BP 117/66; TEMP 97.5; O2SAT 94
[2024-06-29 03:49] VITALS: BP 117/67; TEMP 97.5; O2SAT 95
[2024-06-30 05:18] VITALS: BP 134/92; TEMP 97.5; O2SAT 98
[2024-06-30 08:00] VITALS: BP 153/79; TEMP 97.3; O2SAT 95
[2024-07-01 04:00] VITALS: BP 116/72; TEMP 97.5; O2SAT 97
[2024-07-01] MEDS: IBUPROFEN 600MG TAB PO PRN (21:45)
[2024-07-01 22:14] LABS: BASO % 0.6 % (0.0-1.0); EOS # 0.2 10^3/uL (0.0-0.5); EOS % 3.4 % (0.0-3.0); HEMATOCRIT 38.5 % (36.0-47.0); HEMOGLOBIN 12.3 g/dl (12.0-15.5); LYMPH % 30.9 % (24.0-44.0); MEAN CORPUSCULAR HEMOGLOBIN 29.1 pg (27.0-33.0); MEAN CORPUSCULAR HGB CONC 31.9 g/dl (32.0-36.5); MONO # 0.7 10^3/uL (0.0-0.8); MONO % 10.2 % (2.0-8.0); NEUTROPHILS # 3.5 10^3/uL (1.5-8.5); NEUTROPHILS % 54.7 % (36.0-66.0); PLATELET COUNT, AUTOMATED 192 10^3/uL (150-450); RED BLOOD COUNT 4.23 10^6/uL (4.00-5.40); WHITE BLOOD COUNT 6.5 10^3/uL (4.0-10.0)
[2024-07-01 22:19] LABS: ERYTHROCYTE SEDIMENTATION RATE 9 mm/hr (0-30)
[2024-07-01 22:30] LABS: KETONE, URINE AUTO RFX NEGATIVE (NEGATIVE); LEUKOCYTE ESTERASE UR AUTO RFX NEGATIVE (NEGATIVE); NITRITE, URINE AUTO RFX NEGATIVE (NEGATIVE); RBC, URINE AUTO RFX 0 /HPF (0-3); SQUAM EPITHELIAL CELL UR AURFX 0 /HPF (0-6); WBC, URINE AUTO RFX 1 /HPF (0-3)
[2024-07-01 23:00] LABS: ALBUMIN 3.6 G/DL (3.2-5.2); ALKALINE PHOSPHATASE 168 U/L (35-104); ALT/SGPT 32 U/L (7.0-40); AST/SGOT 34 U/L (<34); BILIRUBIN,TOTAL 0.3 MG/DL (0.3-1.2); BLOOD UREA NITROGEN 29 MG/DL (9-23); C REACTIVE PROTEIN QUANTITATIV < 0.50 MG/DL (<1.0); CARBON DIOXIDE LEVEL 30 MMOL/L (20-31); CHLORIDE LEVEL 103 MMOL/L (98-107); CREATININE FOR GFR 0.78 MG/DL (0.55-1.30); GLOMERULAR FILTRATION RATE > 60.0 (>32); GLUCOSE, FASTING 129 MG/DL (74-106); MAGNESIUM LEVEL 1.7 MG/DL (1.8-2.4); POTASSIUM SERUM 4.7 MMOL/L (3.5-5.1); SODIUM LEVEL 141 MMOL/L (136-145); TOTAL PROTEIN 6.7 G/DL (5.7-8.2)
[2024-07-02] MEDS: methocarbamoL 500 MG TAB PO PRN (00:22)
[2024-07-02] MEDS: MAGNESIUM OXIDE 400MG TAB (MAG-OX) PO SCH (01:15)
[2024-07-02 02:55] LABS: PROCALCITONIN 0.05 ng/ml
[2024-07-02 05:35] VITALS: BP 108/62; TEMP 97.5; O2SAT 97
[2024-07-03 03:51] VITALS: BP 105/58; TEMP 97.7; O2SAT 94
[2024-07-03] MEDS: IBUPROFEN 400MG TAB PO PRN (14:35)
[2024-07-04 03:44] VITALS: BP 133/79; TEMP 97.9; O2SAT 98
[2024-07-05 04:40] VITALS: BP 121/82; TEMP 97.7; O2SAT 95
[2024-07-06 05:30] VITALS: BP 132/80; TEMP 97.7; O2SAT 98
[2024-07-07 05:19] VITALS: BP 105/77; TEMP 97.3; O2SAT 96
[2024-07-08 04:23] VITALS: BP 122/70; TEMP 97.2; O2SAT 96
[2024-07-09 04:34] VITALS: BP 122/71; TEMP 97.5; O2SAT 97
[2024-07-10 08:20] VITALS: BP 124/70; TEMP 97.7; O2SAT 96
[2024-07-11 04:21] VITALS: BP 109/64; TEMP 97.5; O2SAT 97
[2024-07-12 04:00] VITALS: BP 108/66; TEMP 97.2; O2SAT 96
[2024-07-13 04:29] VITALS: BP 136/90; TEMP 97.5; O2SAT 97
[2024-07-14 04:31] VITALS: BP 137/95; TEMP 97.3; O2SAT 98
[2024-07-15 05:00] VITALS: BP 102/67; TEMP 97.3; O2SAT 96
[2024-07-16 04:27] VITALS: BP 112/69; TEMP 97.2; O2SAT 97
[2024-07-17 04:28] VITALS: BP 98/65; TEMP 97.5; O2SAT 96
[2024-07-17 09:45] VITALS: BP 138/84
[2024-07-18 04:00] VITALS: BP 120/79; TEMP 97.3; O2SAT 97
[2024-07-18] MEDS: TUBERCULIN PPD 5 UNITS/0.1 ML ID ONE (14:23)
[2024-07-19 04:24] VITALS: BP 142/85; TEMP 97.5; O2SAT 95
[2024-07-20 04:46] VITALS: BP 119/74; TEMP 97.7; O2SAT 95
[2024-07-20] MEDS: PPD DOCUMENTATION ENTRY MISC XX ONE (15:38)
[2024-07-21 04:44] VITALS: BP 112/72; TEMP 97.2; O2SAT 95
[2024-07-22 04:30] VITALS: BP 121/72; TEMP 97.5; O2SAT 95
[2024-07-23 04:35] VITALS: BP 120/77; TEMP 97.5; O2SAT 96
[2024-07-24 06:21] VITALS: BP 124/77; TEMP 97.5; O2SAT 95
[2024-07-24] MEDS ORDERED: ACET32TAB PO (07:34)
[2024-07-24] MEDS ORDERED: ARTIDRO4 OU (07:34)
[2024-07-24] MEDS ORDERED: MIRA33506 PO (07:34)
[2024-07-24] MEDS ORDERED: METH-1164 PO (07:34)
[2024-07-24] MEDS ORDERED: IBUP-1114 PO (07:34)
[2024-07-24] MEDS ORDERED: IRBE150T27 PO (07:34)
[2024-07-24] MEDS ORDERED: COLA100C5 PO (07:34)
[2024-07-24] MEDS ORDERED: IBUP-1022 PO (07:34)
[2024-07-24] MEDS ORDERED: FLUO-365 PO (07:34)
[2024-07-24] MEDS ORDERED: REXU1TAB2 PO (07:34)
[2024-07-24] MEDS ORDERED: HYDR-3363 PO (07:34)
[2024-07-24] MEDS ORDERED: RAME8TAB2 PO (07:34)
[2024-07-24] MEDS ORDERED: MAGN400T2 PO (07:34)
[2024-07-24] MEDS ORDERED: ARIC1TAB PO (07:34)
[2024-07-24] MEDS ORDERED: METF500T13 PO (07:34)
[2024-07-24] MEDS ORDERED: PREG100CA PO (07:34)
[2024-07-24 08:50] VITALS: BP 140/81
[2024-07-24] MEDS ORDERED: VESI10TA2 PO (08:58)
[2024-07-24] MEDS ORDERED: RIVA1.5C23 PO (08:58)
== END 2024-07-24 09:06 | disposition home or self-care (01) ==
LOC: EDBD 13:47 → M ED 13:47 → M ED INP 05-29 13:48 → M MSPAV 05-29 17:58
PROVIDERS: ADMIT Student in an Organized Health Care Education/Training Program; ATTEND Student in an Organized Health Care Education/Training Program
DX: R41.9 Unspecified symptoms and signs involving cognitive functions and awareness (principal); F22 Delusional disorders; Z91.148 Patient's other noncompliance with medication regimen for other reason; F32.A Depression, unspecified; I95.9 Hypotension, unspecified; Z91.81 History of falling; G47.00 Insomnia, unspecified; Z91.51 Personal history of suicidal behavior; Z63.0 Problems in relationship with spouse or partner; I11.0 Hypertensive heart disease with heart failure; I50.32 Chronic diastolic (congestive) heart failure; E11.22 Type 2 diabetes mellitus with diabetic chronic kidney disease; N18.2 Chronic kidney disease, stage 2 (mild); D50.9 Iron deficiency anemia, unspecified; K59.00 Constipation, unspecified; G47.33 Obstructive sleep apnea (adult) (pediatric); R01.1 Cardiac murmur, unspecified; I08.0 Rheumatic disorders of both mitral and aortic valves; R32 Unspecified urinary incontinence; M79.7 Fibromyalgia; G62.9 Polyneuropathy, unspecified; M54.9 Dorsalgia, unspecified; G89.29 Other chronic pain; K44.9 Diaphragmatic hernia without obstruction or gangrene; Z82.0 Family history of epilepsy and other diseases of the nervous system; Z87.891 Personal history of nicotine dependence; Z79.899 Other long term (current) drug therapy; Z79.84 Long term (current) use of oral hypoglycemic drugs
CPT/HCPCS: 36415; 71045; 80048; 80053; 81001; 82550; 82553; 83036; 83735; 83880; 84145; 84484; 85025; 85027; 85652; 86140; 93005; 96372; 99284; G0378; J1650; J1815

== ENCOUNTER → 2024-10-02 | Outpatient (REF) | payer MEDICARE ==
[~2024-10-02] MED LIST changes: +ACET32TAB PO; +ARIC1TAB PO; +ARTIDRO4 OU; +COLA100C5 PO; +FLUO-96 PO; +IBUP-1022 PO; +IBUP-1114 PO; +MAGN400T2 PO; +METH-1164 PO; +MIRA33506 PO; +RAME8TAB2 PO; +REXU1TAB2 PO; +RIVA1.5C23 PO; +VESI10TA2 PO
[2024-10-02 17:22] LABS: HEMATOCRIT 38.8 % (36.0-47.0); MEAN CORPUSCULAR HEMOGLOBIN 28.4 pg (27.0-33.0); MEAN CORPUSCULAR HGB CONC 30.9 g/dl (32.0-36.5); MEAN CORPUSCULAR VOLUME 91.7 fl (80.0-96.0); PLATELET COUNT, AUTOMATED 161 10^3/uL (150-450); RED BLOOD COUNT 4.23 10^6/uL (4.00-5.40); WHITE BLOOD COUNT 6.2 10^3/uL (4.0-10.0)
[2024-10-02 17:51] LABS: PERCENT SATURATION 27.6 % (13.2-45.0)
[2024-10-02 17:52] LABS: ALBUMIN 3.5 G/DL (3.2-5.2); BILIRUBIN,TOTAL 0.4 MG/DL (0.3-1.2); CALCIUM LEVEL 9.2 MG/DL (8.3-10.6); CHOLESTEROL RISK RATIO 2.54 (<5); CREATININE FOR GFR 0.94 MG/DL (0.55-1.30); HDL CHOLESTEROL 60.2 MG/DL (>40); LDL CHOLESTEROL 58.8 MG/DL (<100); NON-HDL-C 92.8 MG/DL; POTASSIUM SERUM 4.8 MMOL/L (3.5-5.1); TOTAL PROTEIN 6.3 G/DL (5.7-8.2)
[2024-10-02 17:55] LABS: FERRITIN 34.5 NG/ML (7.3-270.7); FREE T4 1.14 NG/DL (0.89-1.76)
[2024-10-02 17:57] LABS: THYROID STIMULATING HORMONE 2.784 uIU/ML (0.55-4.78)
[2024-10-02 18:02] LABS: HEMOGLOBIN A1c 6.7 % (4.0-6.0)
[2024-10-02 18:19] LABS: CREATININE, URINE 62.7 MG/DL
[2024-10-02 18:21] LABS: MALB URINE SIEMENS < 3.0 MG/L
== END ==
LOC: M SFHCADAM 10:55
PROVIDERS: ATTEND Family Medicine
DX: I50.32 Chronic diastolic (congestive) heart failure (principal); I10 Essential (primary) hypertension; D50.9 Iron deficiency anemia, unspecified; E03.9 Hypothyroidism, unspecified; E11.40 Type 2 diabetes mellitus with diabetic neuropathy, unspecified

== ENCOUNTER → 2025-05-07 | Outpatient (REF) | payer MEDICARE ==
[~2025-05-07] MED LIST changes: +BUPR-363 PO; -BUPR75TA5 PO; -IBUP-1022 PO; +IBUP600T42 PO; +PREG-35 PO; -PREG100CA PO
[2025-05-07 18:06] LABS: PLATELET COUNT, AUTOMATED 176 10^3/uL (150-450)
[2025-05-07 18:12] LABS: IRON (FE) 83.0 UG/DL (50-170); PERCENT SATURATION 27.4 % (13.2-45.0)
[2025-05-07 18:14] LABS: ALT/SGPT 15.0 U/L (7.0-40); AST/SGOT 28.0 U/L (<34); CALCIUM LEVEL 10.0 MG/DL (8.3-10.6); CARBON DIOXIDE LEVEL 32.0 MMOL/L (20-31); CHLORIDE LEVEL 100.0 MMOL/L (98-107); CHOLESTEROL LEVEL 117.0 MG/DL (<200); CHOLESTEROL RISK RATIO 3.35 (<5); CREATININE FOR GFR 0.83 MG/DL (0.55-1.30); FREE T4 1.09 NG/DL (0.89-1.76); GLOMERULAR FILTRATION RATE 70.3 (>32); LDL CHOLESTEROL 57.5 MG/DL (<100); NON-HDL-C 82.1 MG/DL; POTASSIUM SERUM 4.8 MMOL/L (3.5-5.1); SODIUM LEVEL 141.0 MMOL/L (136-145); TRIGLYCERIDES LEVEL 123.0 MG/DL (<150)
[2025-05-07 18:41] LABS: ESTIMATED AVERAGE GLUCOSE 137.0 MG/DL (60-110)
== END ==
LOC: M SFHCADAM 11:50
PROVIDERS: ATTEND Family Medicine
DX: I50.32 Chronic diastolic (congestive) heart failure (principal); I35.0 Nonrheumatic aortic (valve) stenosis; I10 Essential (primary) hypertension; D50.9 Iron deficiency anemia, unspecified; E03.9 Hypothyroidism, unspecified; E11.40 Type 2 diabetes mellitus with diabetic neuropathy, unspecified

== ENCOUNTER 2025-05-15 14:48 | Emergency (ER) | payer MEDICARE ==
[~2025-05-15] VITALS: Ht 157.5 cm; Wt 78.1 kg
[2025-05-15 15:19] LABS: BASO # 0.1 10^3/uL (0.0-0.2); BASO % 0.9 % (0.0-1.0); EOS # 0.3 10^3/uL (0.0-0.5); EOS % 4.5 % (0.0-3.0); LYMPH # 1.7 10^3/uL (1.5-5.0); LYMPH % 22.4 % (24.0-44.0); MONO # 0.7 10^3/uL (0.0-0.8); MONO % 9.1 % (2.0-8.0); NEUTROPHILS # 4.7 10^3/uL (1.5-8.5); NEUTROPHILS % 63.0 % (36.0-66.0); PLATELET COUNT, AUTOMATED 188 10^3/uL (150-450)
[2025-05-15 15:51] LABS: ALT/SGPT 22.0 U/L (7.0-40); AST/SGOT 31.0 U/L (<34); CALCIUM LEVEL 8.7 MG/DL (8.3-10.6); CARBON DIOXIDE LEVEL 30.0 MMOL/L (20-31); CHLORIDE LEVEL 104.0 MMOL/L (98-107); CREATININE FOR GFR 0.97 MG/DL (0.55-1.30); GLOMERULAR FILTRATION RATE 58.3 (>32); POTASSIUM SERUM 4.2 MMOL/L (3.5-5.1); SODIUM LEVEL 144.0 MMOL/L (136-145)
[2025-05-15 17:46] VITALS: BP 99/64; TEMP 96.5; O2SAT 96
== END 2025-05-15 18:07 | disposition home or self-care (01) ==
LOC: EDBD 14:48 → M ED 14:48
DX: R19.7 Diarrhea, unspecified (principal); R09.A2 Foreign body sensation, throat; I50.22 Chronic systolic (congestive) heart failure; E11.9 Type 2 diabetes mellitus without complications; I11.0 Hypertensive heart disease with heart failure; M79.7 Fibromyalgia; G47.33 Obstructive sleep apnea (adult) (pediatric); Z88.2 Allergy status to sulfonamides; Z88.5 Allergy status to narcotic agent; Z91.013 Allergy to seafood; Z79.1 Long term (current) use of non-steroidal anti-inflammatories (NSAID); Z79.84 Long term (current) use of oral hypoglycemic drugs; Z79.899 Other long term (current) drug therapy